=== PATIENT | female | born 1955 | race Caucasian/White ===

== ENCOUNTER 2016-07-23 10:31 | Emergency (ER) | payer SELFPAY ==
[2016-07-23 10:31] VITALS: BMI 31.2
[2016-07-23 11:12] VITALS: BP 123/69; PULSE 62; RESP 18; TEMP 99.3; O2SAT 98
--- NOTE | 2016-07-23 11:46 | ED PDOC ---
Arrival/HPI - General Chief Complaint: Flu-like Symptoms Time Seen by Provider: 07/23/16 11:37 Historian: Patient - History of Present Illness Narrative History of Present Illness (Text): 07/23/16 11:42 Patient reports 2 days of fever with body aches, dry cough and sore throat. States that she has been taking Tylenol for her symptoms and took Tylenol prior to arrival at 10 AM. Otherwise: (-) rash, (-) URI symptoms, (-) SOB, (-) chest pain, (-) N/V/D, (-) abdominal pain, (-) flank pain, (-) urinary symptoms, (-) recent travel, (+) sick contacts - works at a daycare. PMD [place] Past Medical History - Provider Review Nursing Documentation Reviewed: Yes - Infectious Disease Hx of Infectious Diseases: None - Tetanus Immunization Tetanus Immunization: Unknown - Reproductive Menopause: Yes - Cardiac Hx Hypertension: Yes - Pulmonary Hx Respiratory Disorders: No - Neurological Hx Neurological Disorder: No - HEENT Hx HEENT Disorder: No - Renal Hx Renal Disorder: Yes - Endocrine/Metabolic Hx Endocrine Disorders: No - Hematological/Oncological Hx Blood Disorders: No - Integumentary Hx Dermatological Disorder: No - Musculoskeletal/Rheumatological Hx Musculoskeletal Disorders: No - Gastrointestinal Hx Gastrointestinal Disorders: No - Genitourinary/Gynecological Hx Genitourinary Disorders: Yes Hx Urinary Tract Infection: Yes - Psychiatric Hx Depression: No Hx Substance Use: No - Surgical History Hx Section: Yes Hx Orthopedic Surgery: Yes (L KNEE) - Anesthesia Hx Anesthesia: Yes Hx Anesthesia Reactions: No Hx Malignant Hyperthermia: No - Suicidal Assessment Feels Threatened In Home Enviroment: No Family/Social History - Physician Review Nursing Documentation Reviewed: Yes Family/Social History: No Known Family HX Smoking Status: Current Some Days Smoker Hx Alcohol Use: Yes Hx Substance Use: No Hx Substance Use Treatment: No Allergies/Home Meds Allergies/Adverse Reactions: Allergies acetaminophen [From Percocet] Allergy (Verified 01/21/16 13:05) REDNESS morphine Allergy (Verified 01/21/16 13:05) RASH oxycodone HCl [From Percocet] Allergy (Verified 01/21/16 13:05) REDNESS oxycodone Adverse Reaction (Verified 01/18/16 20:17) NAUSEA Review of Systems - Review of Systems Constitutional: Normal, Fatigue, Fevers. absent: Weight Change Eyes: Normal. absent: Vision Changes, Photophobia, Eye Pain ENT: Normal, Sore Throat. absent: Hearing Changes, Tinnitus, TMJ Pain Respiratory: Normal, Cough. absent: SOB, Sputum Musculoskeletal: Normal, Myalgias. absent: Back Pain, Neck Pain Skin: Normal. absent: Rash, Pruritis, Skin Lesions Physical Exam - Physical Exam Narrative Physical Exam (Text): 07/23/16 11:44 GENERAL APPEARANCE: Patient is awake, alert, oriented x 3, in no acute distress. SKIN: Warm, dry; (-) cyanosis, (-) rash. (-) Decubitus Ulcer EYES: (-) conjunctival pallor, (-) scleral icterus, (-) conjunctival hemorrhage. ENMT: Mucous membranes moist. TMs: (-) erythema. Airway patent: (-) stridor. Pharynx: (+) erythema, (+) exudate. NECK: (-) tenderness, (-) stiffness, (-) meningismus, (-) lymphadenopathy. CHEST AND RESPIRATORY: (-) accessory muscle use. Lungs: (-) rales, (-) rhonchi, (-) wheezes, (-) rub; breath sounds equal bilaterally. HEART AND CARDIOVASCULAR: (-) irregularity; (-) murmur, (-) gallop, (-) rub. ABDOMEN AND GI: Soft; (-) tenderness, (-) guarding; (-) organomegaly; (-) mass ; (-) CVA tenderness. EXTREMITIES: (-) deformity; (-) cellulitis, (-) lymphangitis; (-) subungual hemorrhage; (-) edema. NEURO AND PSYCH: Mental status as above; (-) focal findings. Vital Signs Temp Pulse Resp BP Pulse Ox 07/23/16 11:08 99.3 F 62 18 123/69 98 Medical Decision Making ED Course and Treatment: 07/23/16 11:44 61 yo F complaining of 2 day history of fever, body aches and sore throat. On exam, patient is noted to have pharyngitis, will treat as such. Based on history and exam, plan will be for outpatient follow-up with PMD. Prescription provided. Patient states she fully agrees with and understands discharge instructions. States that she agrees with the plan and disposition. Verbalized and repeated discharge instructions and plan. I have given the patient opportunity to ask any additional questions. Follow up with primary care physician in 1-2 days without fail. Advised to take medication as prescribed. Return to the emergency room at any time for any new or worsening symptoms. - PA / WOODWORK TEACHER / Resident Statement MD/DO has reviewed & agrees with the documentation as recorded. Disposition/Present on Arrival - Present on Arrival Any Indicators Present on Arrival: No History of DVT/PE: No History of Uncontrolled Diabetes: No Urinary Catheter: No History of Decub. Ulcer: No History Surgical Site Infection Following: None - Disposition Have Diagnosis and Disposition been Completed?: Yes Diagnosis: Pharyngitis Disposition: HOME/ ROUTINE Disposition Time: 11:46 Patient Plan: Discharge Condition: GOOD Discharge Instructions (ExitCare): Pharyngitis (ED) Print Language: MALAYSIAN Additional Instructions: Thank you for letting us take care of you today. You were treated for pharyngitis. The emergency medical care you received today was directed at your acute symptoms. If you were prescribed any medication, please fill it and take as directed. It may take several days for your symptoms to resolve. Return to the Emergency Department if your symptoms worsen, do not improve, or if you have any other problems. Please contact your doctor in 2 days for re-evaluation and follow up. Bring any paperwork you were given at discharge with you along with any medications you are taking to your follow up visit. Our treatment cannot replace ongoing medical care by a primary care provider (PCP) outside of the emergency department. Thank you for allowing the [facility] team to be part of your care today. Prescriptions: Ibuprofen [Motrin] 600 mg PO Q6H #20 tab Penicillin VK [Pen-Vee K] 500 mg PO QID #20 tab Forms: WORK NOTE
== END 2016-07-23 12:09 | disposition home or self-care (01) ==
LOC: ED 10:31
DX: J02.9 Acute pharyngitis, unspecified (principal); Z72.0 Tobacco use

== ENCOUNTER 2017-01-18 10:52 | Emergency (ER) | payer MEDICAID, OTHER ==
[2017-01-18 10:52] VITALS: BMI 31.2
[2017-01-18 11:01] VITALS: TEMP 98.5
[2017-01-18 11:16] LABS: URINE BILIRUBIN NEGATIVE (NEGATIVE); URINE BLOOD TRACE-INTACT (NEGATIVE); URINE GLUCOSE (UA) NEGATIVE (NEGATIVE); URINE KETONE NEGATIVE (NEGATIVE); URINE LEUKOCYTE ESTERASE SMALL Leu/uL (NEGATIVE); URINE PROTEIN NEGATIVE mg/dL (<30 mg/dL); URINE UROBILINOGEN 0.2 E.U./dL (<1 E.U./dL)
[2017-01-18 11:18] LABS: URINE APPEARANCE CLEAR (CLEAR); URINE COLOR LIGHT YELLOW (YELLOW)
--- NOTE | 2017-01-18 11:22 | ED PDOC ---
Arrival/HPI - General Chief Complaint: Female Genitourinary Time Seen by Provider: 01/18/17 10:58 Historian: Patient - History of Present Illness Narrative History of Present Illness (Text): 01/18/17 11:14 A 61 year old female presents to the emergency department complaining of right sided back pain since yesterday. Patient states her pain worsened this morning causing her to come in for further evaluation. Patient took 2 Advils today, with mild relief. Patient reports she is prone to urinary tract infections. She notes foul smelling urine and 2 episodes of non-bloody watery diarrhea yesterday. Patient notes subjective fever, chills, runny nose and cough with phlegm for 2 days. Patient denies any trauma, injury, nausea, vomiting, abdominal pain, chest pain, shortness of breath or any other complaints. Denies history of kidney stones. PMD: None Time/Duration: Other (Yesterday) Symptom Course: Worsening Quality: Other Context: Home Past Medical History - Provider Review Nursing Documentation Reviewed: Yes - Infectious Disease Hx of Infectious Diseases: None - Tetanus Immunization Tetanus Immunization: Unknown - Cardiac Hx Hypertension: Yes - Pulmonary Hx Respiratory Disorders: No - Neurological Hx Neurological Disorder: No - HEENT Hx Macular Degeneration: Yes - Renal Hx Renal Disorder: Yes - Endocrine/Metabolic Hx Endocrine Disorders: No - Hematological/Oncological Hx Blood Disorders: No - Integumentary Hx Dermatological Disorder: No - Musculoskeletal/Rheumatological Hx Musculoskeletal Disorders: No - Gastrointestinal Hx Gastrointestinal Disorders: No - Genitourinary/Gynecological Hx Genitourinary Disorders: Yes Hx Urinary Tract Infection: Yes - Psychiatric Hx Psychophysiologic Disorder: No Hx Substance Use: No - Surgical History Hx Section: Yes Hx Orthopedic Surgery: Yes (L KNEE) - Anesthesia Hx Anesthesia: Yes Hx Anesthesia Reactions: No Hx Malignant Hyperthermia: No - Suicidal Assessment Feels Threatened In Home Enviroment: No Family/Social History - Physician Review Nursing Documentation Reviewed: Yes Family/Social History: Other (Kidney stones) Smoking Status: Current Some Days Smoker Hx Alcohol Use: Yes Hx Substance Use: No Hx Substance Use Treatment: No Allergies/Home Meds Allergies/Adverse Reactions: Allergies acetaminophen [From Percocet] Allergy (Verified 01/18/17 10:55) REDNESS morphine Allergy (Verified 01/18/17 10:55) RASH oxycodone HCl [From Percocet] Allergy (Verified 01/18/17 10:55) REDNESS oxycodone Adverse Reaction (Verified 01/18/17 10:55) NAUSEA Review of Systems - Physician Review All systems were reviewed & negative as marked: Yes - Review of Systems Constitutional: Fevers, Night Sweats ENT: Rhinorrhea Respiratory: Cough, Sputum. absent: SOB Cardiovascular: absent: Chest Pain Gastrointestinal: Diarrhea. absent: Abdominal Pain, Nausea, Vomiting Genitourinary Female: Other (foul smelling urine) Musculoskeletal: Back Pain (right sided) Physical Exam Vital Signs Reviewed: Yes Vital Signs Temp Pulse Resp BP Pulse Ox 01/18/17 11:48 50 L 18 151/66 H 01/18/17 10:56 98.5 F 48 L 16 170/88 H 98 Temperature: Afebrile Blood Pressure: Hypertensive Pulse: Bradycardic Respiratory Rate: Normal Appearance: Positive for: Well-Appearing, Non-Toxic, Comfortable Pain Distress: None Mental Status: Positive for: Alert and Oriented X 3 - Systems Exam Head: Present: Atraumatic, Normocephalic Pupils: Present: PERRL Extroacular Muscles: Present: EOMI Conjunctiva: Present: Normal Mouth: Present: Moist Mucous Membranes Pharnyx: No: ERYTHEMA, EXUDATE, TONSILS ENLARGED Neck: Present: Normal Range of Motion Respiratory/Chest: Present: Clear to Auscultation, Good Air Exchange. No: Respiratory Distress, Accessory Muscle Use Cardiovascular: Present: Murmurs (4-6 right upper sternal border systolic murmur ), Normal S1, S2 Abdomen: Present: Normal Bowel Sounds. No: Tenderness, Distention, Peritoneal Signs Back: Present: CVA Tenderness (Mild right CVA tenderness), Other (Tenderness to right sciatic area). No: Pain with Leg Raise Upper Extremity: Present: Normal Inspection, NORMAL PULSES. No: Cyanosis, Edema Lower Extremity: Present: Normal Inspection, NORMAL PULSES, Other (right posterior thigh pain). No: Edema, CALF TENDERNESS Neurological: Present: GCS=15, Speech Normal, Motor Func Grossly Intact, Normal Sensory Function Skin: Present: Warm, Dry, Normal Color. No: Rashes Psychiatric: Present: Alert, Oriented x 3, Normal Insight, Normal Concentration Medical Decision Making ED Course and Treatment: 01/18/17 11:14 Impression: A 61 year old female with right sided back pain. Patient notes foul smelling urine. Plan: -- Urine culture -- Urinalysis -- Reassess and disposition Progress Notes: 01/18/17 12:05 given her symptoms of dysuira we will treat for an early UTI, with Cefpodoxime. Do not believe this repr she shows no signs of doubt kidney stone her pain seems more likely musculoskeletal. and I advised her to followup with a operations manager station for her murmur and at the [facility] for BP control. an EKG was obtained due to the patient's bradycardia to check for sinus arrthymia or heart block. EKG shows a sinus bradycardia, she is asymptomatic at this time. I advised her to followup with cardiology for the low heart rate. no smoking. 01/18/17 12:43 01/18/17 12:53 - Lab Interpretations Lab Results: Lab Results 01/18/17 11:00: Urine Color Light yellow, Urine Appearance Clear, Urine pH 6.0, Ur Specific [place] 1.025, Urine Protein Negative, Urine Glucose (UA) Negative, Urine Ketones Negative, Urine Blood Trace-intact H, Urine Nitrate Negative, Urine Bilirubin Negative, Urine Urobilinogen 0.2, Ur Leukocyte Esterase Small H , Urine RBC 1 - 3, Urine WBC 1 - 3, Ur Epithelial Cells 1 - 3, Urine Bacteria Few I have reviewed the lab results: Yes Interpretation: Abnormal lab values (mild leuks/bacteria in UA) - EKG Interpretation Interpreted by ED Physician: Yes Type: 12 lead EKG (sinus bradycardia 46 bpm, nml axis, no st changes. nml QTc, QRS and MO intervals.) - Medication Orders Current Medication Orders: Cefpodoxime Proxetil (Vantin) 100 mg PO DAILY [facility] PRN Reason: Protocol Discontinued Medications Cefpodoxime Proxetil (Vantin) 100 mg PO DAILY [facility] PRN Reason: Protocol - Scribe Statement The provider has reviewed the documentation as recorded by the Leo Gomez Provider Scribe Attestation: All medical record entries made by the Scribe were at my direction and personally dictated by me. I have reviewed the chart and agree that the record accurately reflects my personal performance of the history, physical exam, medical decision making, and the department course for this patient. I have also personally directed, reviewed, and agree with the discharge instructions and disposition. Disposition/Present on Arrival - Present on Arrival Any Indicators Present on Arrival: No History of DVT/PE: No History of Uncontrolled Diabetes: No Urinary Catheter: No History of Decub. Ulcer: No History Surgical Site Infection Following: None - Disposition Have Diagnosis and Disposition been Completed?: Yes Diagnosis: Sciatica, Flank pain, UTI (urinary tract infection), High blood pressure, Heart murmur, Bradycardia Disposition: HOME/ ROUTINE Disposition Time: 12:08 Patient Plan: Discharge Patient Problems: Current Active Problems Problem Status Onset Bradycardia Acute Flank pain Acute Heart murmur Acute Hypertension Acute Sciatica Acute UTI (urinary tract infection) Acute Condition: IMPROVED Discharge Instructions (ExitCare): Urinary Tract Infection in Women (ED), Sciatica (ED), Heart Murmur (ED) Print Language: FAROESE Additional Instructions: please follow up with the operations manager station regarding your heart murmur you may have a problem with your heart valve. (Aortic stenosis). heart rate was low today. Your blood pressure was elevated today. please followup with a primary doctor regarding your blood pressure control. Prescriptions: Cefpodoxime [Vantin] 100 mg PO BID #10 tab Referrals: [facility] at [facility] [place] [Outside] - Follow up with primary Laura Solo MD [Staff Provider] - Follow up with primary Forms: [employer] (Faroese)
[2017-01-18 11:34] LABS: URINE BACTERIA FEW (NEG)
[2017-01-18 11:49] VITALS: RESP 18
[2017-01-18] MEDS ORDERED: Cefpodoxime (Vantin) 100 mg Tab PO SCH (12:30)
[2017-01-18 12:57] VITALS: BP 179/74; PULSE 42; O2SAT 100
--- NOTE | 2017-01-19 00:50 | CARD ---
APPROVED REPORT EKG Measurement Heart [id number] <Conclusion> Marked sinus bradycardia Abnormal ECG
[2017-01-19] MEDS ORDERED: Cefpodoxime (Vantin) 100 mg Tab PO SCH (10:00)
== END 2017-01-18 13:22 | disposition home or self-care (01) ==
LOC: ED 10:52
DX: M54.30 Sciatica, unspecified side (principal); R10.9 Unspecified abdominal pain; I10 Essential (primary) hypertension; N39.0 Urinary tract infection, site not specified; R01.1 Cardiac murmur, unspecified; R00.1 Bradycardia, unspecified

== ENCOUNTER 2017-02-28 09:04 | Emergency (ER) | payer MEDICAID ==
[2017-02-28 09:15] VITALS: BMI 29.6
[2017-02-28 09:38] VITALS: PULSE 78; RESP 18; TEMP 98.5; O2SAT 100
[2017-02-28 09:49] LABS: URINE BILIRUBIN NEGATIVE (NEGATIVE); URINE BLOOD TRACE-INTACT (NEGATIVE); URINE GLUCOSE (UA) NEGATIVE (NEGATIVE); URINE KETONE NEGATIVE (NEGATIVE); URINE LEUKOCYTE ESTERASE NEGATIVE Leu/uL (NEGATIVE); URINE PROTEIN NEGATIVE mg/dL (<30 mg/dL); URINE UROBILINOGEN 0.2 E.U./dL (<1 E.U./dL)
[2017-02-28 09:50] LABS: URINE APPEARANCE CLEAR (CLEAR); URINE COLOR YELLOW (YELLOW)
[2017-02-28 10:04] LABS: BASO # 0.03 K/mm3 (0.0-2.0); BASO % 0.4 % (0.0-3.0); EOS # 0.1 (0.0-0.7); EOS % 1.9 % (1.5-5.0); GRAN # 4.53 (1.4-6.5); GRAN % 62.8 % (50.0-68.0); HEMATOCRIT 40.8 % (36.0-48.0); LYMPH # 1.9 (1.2-3.4); LYMPH % 25.7 % (22.0-35.0); MEAN CELL VOLUME 94.7 fl (80.0-105.0); MEAN CORPUSCULAR HEMOGLOBIN 30.9 pg (25.0-35.0); MEAN CORPUSCULAR HGB CONC 32.6 g/dl (31.0-37.0); MEAN PLATELET VOLUME 10.6 fl (7.0-11.0); MONO # 0.7 (0.1-0.6); MONO % 9.2 % (1.0-6.0); RED CELL DISTRIBUTION WIDTH 12.5 % (11.5-14.5); WHITE BLOOD COUNT 7.2 10^3/ul (4.5-11.0)
[2017-02-28 10:10] LABS: URINE BACTERIA FEW (NEG); URINE RBC 0 - 2 /hpf (0-2); URINE WBC 0 - 2 /hpf (0-6)
[2017-02-28 10:11] LABS: ALKALINE PHOSPHATASE 73 U/L (38-126); ALT/SGPT 26 U/L (7-56); AST/SGOT 24 U/L (14-36); BILIRUBIN,TOTAL 0.7 mg/dL (0.2-1.3); BLOOD UREA NITROGEN 13 mg/dL (7-21); CALCIUM 9.7 mg/dL (8.4-10.5); CARBON DIOXIDE 28 mmol/L (21-33); CHLORIDE 104 mmol/L (98-107); GFR AFRICAN-AMERICAN > 60; GLUCOSE,RANDOM 146 mg/dL (70-110); LIPASE 119 U/L (23-300); POTASSIUM 4.3 mmol/L (3.6-5.0); SODIUM 141 mmol/L (132-148); TOTAL PROTEIN 8.9 g/dL (5.8-8.3)
--- NOTE | 2017-02-28 10:17 | ED PDOC ---
Arrival/HPI - General Chief Complaint: Back Pain Time Seen by Provider: 02/28/17 09:37 Historian: Patient - History of Present Illness Narrative History of Present Illness (Text): 02/28/17 10:13 61-year-old female presents today with a one-day history of urinary frequency and dysuria and right-sided back pain. Patient states she has worsening sharp stabbing pain in the right lower back that is nonradiating. She denies abdominal pain. Denies fevers or chills. Denies nausea or vomiting. Denies chest pain or shortness of breath. Patient states she has taken Tylenol at home without improvement in her symptoms. Patient states pain is 8 out of 10. No other complaints Time/Duration: Other (1 day) Symptom Onset: Gradual Symptom Course: Worsening Quality: Stabbing Severity Level: 8 Past Medical History - Provider Review Nursing Documentation Reviewed: Yes - Travel History Have you recently traveled outside [place] w/in the past 3 mons?: No - Infectious Disease Hx of Infectious Diseases: None - Tetanus Immunization Tetanus Immunization: Unknown - Cardiac Hx Hypertension: Yes - Pulmonary Hx Respiratory Disorders: No - Neurological Hx Neurological Disorder: No - HEENT Hx Macular Degeneration: Yes - Renal Hx Renal Disorder: Yes - Endocrine/Metabolic Hx Endocrine Disorders: No - Hematological/Oncological Hx Blood Disorders: No - Integumentary Hx Dermatological Disorder: No - Musculoskeletal/Rheumatological Hx Musculoskeletal Disorders: No - Gastrointestinal Hx Gastrointestinal Disorders: No - Genitourinary/Gynecological Hx Genitourinary Disorders: Yes Hx Urinary Tract Infection: Yes - Psychiatric Hx Psychophysiologic Disorder: No Hx Substance Use: No - Surgical History Hx Section: Yes Hx Orthopedic Surgery: Yes (L KNEE) - Anesthesia Hx Anesthesia: Yes Hx Anesthesia Reactions: No Hx Malignant Hyperthermia: No - Suicidal Assessment Feels Threatened In Home Enviroment: No Family/Social History - Physician Review Nursing Documentation Reviewed: Yes Family/Social History: Unknown Family HX Smoking Status: Current Some Days Smoker Hx Alcohol Use: Yes Hx Substance Use: No Hx Substance Use Treatment: No Allergies/Home Meds Allergies/Adverse Reactions: Allergies acetaminophen [From Percocet] Allergy (Verified 02/14/17 11:38) REDNESS morphine Allergy (Verified 02/14/17 11:38) RASH oxycodone HCl [From Percocet] Allergy (Verified 02/14/17 11:38) REDNESS oxycodone Adverse Reaction (Verified 01/18/17 10:55) NAUSEA Review of Systems - Review of Systems Constitutional: absent: Fatigue, Fevers Respiratory: absent: SOB, Cough Cardiovascular: absent: Chest Pain, Palpitations Gastrointestinal: absent: Abdominal Pain, Constipation, Diarrhea, Nausea, Vomiting Genitourinary Female: Dysuria, Frequency. absent: Hematuria, Vaginal Bleeding, Vaginal Discharge Musculoskeletal: Back Pain. absent: Arthralgias, Neck Pain Skin: absent: Rash, Pruritis Neurological: absent: Headache, Dizziness Physical Exam Vital Signs Reviewed: Yes Vital Signs Temp Pulse Resp BP Pulse Ox 02/28/17 12:29 78 18 176/75 H 100 02/28/17 09:17 98.5 F 78 18 180/78 H 100 Temperature: Afebrile Blood Pressure: Hypertensive Pulse: Regular Respiratory Rate: Normal Appearance: Positive for: Well-Appearing, Non-Toxic, Comfortable Pain Distress: None Mental Status: Positive for: Alert and Oriented X 3 - Systems Exam Head: Present: Atraumatic Mouth: Present: Moist Mucous Membranes Neck: Present: Normal Range of Motion Respiratory/Chest: Present: Clear to Auscultation Cardiovascular: Present: Regular Rate and Rhythm Abdomen: Present: Normal Bowel Sounds. No: Tenderness, Distention, Peritoneal Signs, Rebound, Guarding Back: Present: Normal Inspection. No: CVA Tenderness, Midline Tenderness, Paraspinal Tenderness Upper Extremity: Present: Normal ROM Lower Extremity: Present: Normal ROM Neurological: Present: GCS=15, Speech Normal Skin: Present: Warm, Dry, Normal Color. No: Rashes Psychiatric: Present: Alert, Oriented x 3 Medical Decision Making ED Course and Treatment: 02/28/17 10:25 Patient is nontoxic well appearing with stable vital signs presenting with right sided back pain. CBC: wnl CMP:glucose 146 Lipase: wnl Urinalysis + blood, no leukocytes, few bacteria CAT scan: FINDINGS: LOWER THORAX: There is subsegmental atelectasis in the lower lobes. LIVER: Normal in size. No gross lesion or ductal dilatation. 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 GALLBLADDER AND BILE DUCTS: No calcified gallstones. PANCREAS: Normal in size. No gross lesion or ductal dilatation. SPLEEN: Normal in size and appearance. ADRENALS: No discrete nodule. KIDNEYS AND URETERS: Normal in size without nephrolithiasis. No hydronephrosis. No solid mass. VASCULATURE: No aortic aneurysm. BOWEL: The small bowel loops are normal in caliber. There is mild colonic diverticulosis without CT evidence for acute diverticulitis. No bowel dilatation or obstruction. APPENDIX: Normal appendix. PERITONEUM: No free fluid. No free air. LYMPH NODES: No enlarged lymph nodes. BLADDER: The urinary bladder is partially decompressed and there is apparent mild mural thickening wall. REPRODUCTIVE: The uterus is normal in size. BONES: No acute fracture. Multilevel degenerative disc disease. OTHER FINDINGS: None. IMPRESSION: No evidence of nephrolithiasis, hydronephrosis or obstructive uropathy. Apparent mild mural thickening of the urinary bladder wall could be related to underdistention however cystitis cannot be excluded. Please correlate with urine analysis. Colonic diverticulosis without CT evidence for acute diverticulitis. Patient reassessment: pt feeling better after medications. will treat patient for UTI with keflex. Discussed all results with patient in depth advised taking antibiotics as prescribed and advised follow-up with the primary care physician. Advised me to return if symptoms worsen persist or if new concerning symptoms develop. pt with elevated blood sugar; advised patient to f/u with PMD for fasting blood sugar/ evaluation of possible DM. Patient verbalizes understanding of discharge instructions and need for immediate followup. all aspects of this case were discussed the attending of record. Impression: back pain, UTI Motrin every 6 hours as needed for pain Keflex 1 capsule 4 Times Daily 7 Days Follow-Up the Primary Care Physician within the Next 2 Days Increase Fluids Return Immediately If Symptoms Worsen Persist or If New concerning Symptoms Develop: High Fevers, Increasing Pain, nausea, vomiting, diarrhea severe abdominal pain or if any other concerning symptoms develop - Lab Interpretations Lab Results: 02/28/17 09:58 02/28/17 09:58 Lab Results 02/28/17 09:58: WBC 7.2 D, RBC 4.31, Hgb 13.3, Hct 40.8, MCV 94.7, MCH 30.9, MCHC 32.6, RDW 12.5, Plt Count 234, MPV 10.6, Gran % 62.8, Lymph % (Auto) 25.7, [place] % (Auto) 9.2 H, Eos % (Auto) 1.9, Baso % (Auto) 0.4, Gran # 4.53, Lymph # 1.9, [place] # 0.7 H, Eos # 0.1, Baso # 0.03 02/28/17 09:58: Sodium 141, Potassium 4.3, Chloride 104, Carbon Dioxide 28, Anion Gap 13, BUN 13, Creatinine 0.5 L, Est GFR ( Amer) > 60, Est GFR ( Non-Af Amer) > 60, Random Glucose 146 H, Calcium 9.7, Total Bilirubin 0.7, AST 24, ALT 26, Alkaline Phosphatase 73, Total Protein 8.9 H, Albumin 4.4, Globulin 4.4, Albumin/Globulin Ratio 1.0 L, Lipase 119 02/28/17 09:45: Urine Color Yellow, Urine Appearance Clear, Urine pH 6.0, Ur Specific [place] 1.025, Urine Protein Negative, Urine Glucose (UA) Negative, Urine Ketones Negative, Urine Blood Trace-intact H, Urine Nitrate Negative, Urine Bilirubin Negative, Urine Urobilinogen 0.2, Ur Leukocyte Esterase Negative , Urine RBC 0 - 2, Urine WBC 0 - 2, Ur Epithelial Cells 1 - 3, Urine Bacteria Few - RAD Interpretation Radiology Orders: 02/28/17 09:51 ABD & PELVIS W/O PO OR IV CONT [CT] Stat - Medication Orders Current Medication Orders: Discontinued Medications Cephalexin Monohydrate (Keflex) 500 mg PO STAT STA PRN Reason: Protocol Stop: 02/28/17 13:08 Ketorolac Tromethamine (Toradol) 30 mg IVP STAT STA Stop: 02/28/17 09:38 Last Admin: 02/28/17 09:55 Dose: 30 mg MAR Pain Assessment Document 02/28/17 09:55 [place] (Rec: 02/28/17 09:57 [place] [id number]) Pain Reassessment Is this a pain reassessment? No Sleep Is patient sleeping during reassessment? No Presence of Pain Presence of Pain Yes Pain Scale Used Pain Scale Used Numeric Location Left, Right or Bilateral Right Upper or Lower Lower Pain Location Body Site Back IVP Administration Document 02/28/17 09:55 MO (Rec: 02/28/17 09:57 [id number] Charges for Administration # of IVP Administrations 1 Disposition/Present on Arrival - Present on Arrival Any Indicators Present on Arrival: No History of DVT/PE: No History of Uncontrolled Diabetes: No Urinary Catheter: No History of Decub. Ulcer: No History Surgical Site Infection Following: None - Disposition Have Diagnosis and Disposition been Completed?: Yes Diagnosis: Back pain, Urinary tract infection Disposition: HOME/ ROUTINE Disposition Time: 13:08 Patient Plan: Discharge Patient Problems: Current Active Problems Problem Status Onset Back pain Acute Urinary tract infection Acute Condition: GOOD Discharge Instructions (ExitCare): Urinary Tract Infection in Women (ED), Dysuria (ED), Back Pain (ED) Additional Instructions: Motrin every 6 hours as needed for pain Keflex 1 capsule 4 Times Daily 7 Days Follow-Up the Primary Care Physician within the Next 2 Days Increase Fluids Return Immediately If Symptoms Worsen Persist or If New concerning Symptoms Develop: High Fevers, Increasing Pain, nausea, vomiting, diarrhea severe abdominal pain or if any other concerning symptoms develop Prescriptions: Cephalexin [Keflex] 500 mg PO QID #28 capsule Ibuprofen [Motrin] 600 mg PO Q6H PRN #20 tab PRN Reason: pain/fever reduction Referrals: Luke Cantu MD [Staff Provider] - Follow up with primary [facility] [place]] - Follow up with primary Forms: [employer] (Lao)
--- NOTE | 2017-02-28 11:36 | CT ---
PROCEDURE: CT Abdomen and Pelvis without intravenous contrast HISTORY: Right flank pain COMPARISON: 01/18/2016. TECHNIQUE: CT scan of the abdomen and pelvis was performed without administration of intravenous contrast. Oral contrast was not administered. Coronal and sagittal reformatted images were obtained. Radiation dose: Total exam DLP = 679.30 mGy-cm. This CT exam was performed using one or more of the following dose reduction techniques: Automated exposure control, adjustment of the mA and/or kV according to patient size, and/or use of iterative reconstruction technique. FINDINGS: LOWER THORAX: There is subsegmental atelectasis in the lower lobes. LIVER: Normal in size. No gross lesion or ductal dilatation. 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 GALLBLADDER AND BILE DUCTS: No calcified gallstones. PANCREAS: Normal in size. No gross lesion or ductal dilatation. SPLEEN: Normal in size and appearance. ADRENALS: No discrete nodule. KIDNEYS AND URETERS: Normal in size without nephrolithiasis. No hydronephrosis. No solid mass. VASCULATURE: No aortic aneurysm. BOWEL: The small bowel loops are normal in caliber. There is mild colonic diverticulosis without CT evidence for acute diverticulitis. No bowel dilatation or obstruction. APPENDIX: Normal appendix. PERITONEUM: No free fluid. No free air. LYMPH NODES: No enlarged lymph nodes. BLADDER: The urinary bladder is partially decompressed and there is apparent mild mural thickening wall. REPRODUCTIVE: The uterus is normal in size. BONES: No acute fracture. Multilevel degenerative disc disease. OTHER FINDINGS: None. IMPRESSION: No evidence of nephrolithiasis, hydronephrosis or obstructive uropathy. Apparent mild mural thickening of the urinary bladder wall could be related to underdistention however cystitis cannot be excluded. Please correlate with urine analysis. Colonic diverticulosis without CT evidence for acute diverticulitis.
[2017-02-28 12:29] VITALS: BP 176/75
== END 2017-02-28 13:25 | disposition home or self-care (01) ==
LOC: ED 09:04
DX: N39.0 Urinary tract infection, site not specified (principal); M54.5 Low back pain; F17.200 Nicotine dependence, unspecified, uncomplicated; I10 Essential (primary) hypertension
CPT/HCPCS: 74176; 80053; 81001; 83690; 85025; 96374; 99283; J1885

== ENCOUNTER 2017-03-28 19:09 | Emergency (ER) | payer MEDICAID ==
[2017-03-28 19:11] VITALS: BMI 29.6
[2017-03-28] MEDS ORDERED: Sodium Chloride 0.9% 1,000 ML IV STA (20:02)
--- NOTE | 2017-03-28 20:21 | ED PDOC ---
Arrival/HPI - General Historian: Patient - History of Present Illness Time/Duration: < week Symptom Onset: Gradual Symptom Course: Worsening Activities at Onset: Rest, Light Context: Home, Work - General Chief Complaint: Flu-like Symptoms Time Seen by Provider: 03/28/17 19:43 - History of Present Illness Narrative History of Present Illness (Text): 03/28/17 20:10 Mrs. Izaguirre is a 61 year old female with a past medical history significant for hypertension who presents to the [facility] emergency department with a chief complaint of flu-like symptoms of 3 days duration. Patient reports that she has had tactile fever, watery eyes, rhinorrhea, dry cough, nausea, one episode of non-bloody, vomiting, loose stools and body aches since she awoke 3 days ago. She endorses that she has tried OTC aleve and tylenol with minimal relief of her symptoms. 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 She also reports that she did not obtain her flu shot this year. She denies chills, headache, changes in her vision, sinus congestion, neck pain/stiffness, chest pain, palpitations, shortness of breath, wheezing, sputum, constipation, burning/pain with urination, rashes or any numbness/tingling/weakness of any extremity. (Randy Patel) Past Medical History - Provider Review Nursing Documentation Reviewed: Yes - Travel History Have you recently traveled outside [place] w/in the past 3 mons?: No - Past History Past History: No Previous - Infectious Disease Hx of Infectious Diseases: None - Tetanus Immunization Tetanus Immunization: Unknown - Reproductive Currently : No - Cardiac Hx Hypertension: Yes - Pulmonary Hx Respiratory Disorders: No - Neurological Hx Neurological Disorder: No - HEENT Hx Macular Degeneration: Yes - Renal Hx Renal Disorder: Yes - Endocrine/Metabolic Hx Endocrine Disorders: No - Hematological/Oncological Hx Blood Disorders: No - Integumentary Hx Dermatological Disorder: No - Musculoskeletal/Rheumatological Hx Musculoskeletal Disorders: No - Gastrointestinal Hx Gastrointestinal Disorders: No - Genitourinary/Gynecological Hx Genitourinary Disorders: Yes Hx Urinary Tract Infection: Yes - Psychiatric Hx Psychophysiologic Disorder: No Hx Substance Use: No - Surgical History Hx Section: Yes Hx Orthopedic Surgery: Yes (L KNEE) - Anesthesia Hx Anesthesia: Yes Hx Anesthesia Reactions: No Hx Malignant Hyperthermia: No - Suicidal Assessment Feels Threatened In Home Enviroment: No Family/Social History - Physician Review Nursing Documentation Reviewed: Yes Family/Social History: No Known Family HX Smoking Status: Current Some Days Smoker Hx Alcohol Use: Yes Hx Substance Use: No Hx Substance Use Treatment: No Allergies/Home Meds Allergies/Adverse Reactions: Allergies acetaminophen [From Percocet] Allergy (Verified 02/14/17 11:38) REDNESS morphine Allergy (Verified 02/14/17 11:38) RASH oxycodone HCl [From Percocet] Allergy (Verified 02/14/17 11:38) REDNESS oxycodone Adverse Reaction (Verified 01/18/17 10:55) NAUSEA Home Medications: Home Meds Medication Instructions Recorded Confirmed Enalapril Maleate [Vasotec] 5 mg PO DAILY 03/28/17 03/28/17 Review of Systems - Physician Review All systems were reviewed & negative as marked: Yes - Review of Systems Constitutional: Fevers. absent: Normal, Night Sweats Eyes: Normal. absent: Vision Changes ENT: Rhinorrhea. absent: Normal, Sore Throat, Sinus Congestion Respiratory: Cough. absent: Normal, SOB, Sputum, Wheezing Cardiovascular: Normal. absent: Palpitations Gastrointestinal: Abdominal Pain, Nausea. absent: Normal, Constipation, Diarrhea, Vomiting, Hematochezia, Hematemesis Genitourinary Female: Normal. absent: Dysuria Musculoskeletal: Normal. absent: Neck Pain Skin: Normal. absent: Rash Neurological: Normal. absent: Headache Endocrine: Normal Hemo/Lymphatic: Normal Psychiatric: Normal Physical Exam Vital Signs Reviewed: Yes Temperature: Afebrile Blood Pressure: Normal Pulse: Regular Respiratory Rate: Normal Appearance: Positive for: Well-Appearing, Non-Toxic, Comfortable Pain Distress: None Mental Status: Positive for: Alert and Oriented X 3 - Systems Exam Head: Present: Atraumatic, Normocephalic Pupils: Present: PERRL Extroacular Muscles: Present: EOMI Conjunctiva: Present: Normal Ears: Present: Normal, NORMAL TM, Normal Canal. No: Erythema, Fluid, TM Perf Mouth: Present: Moist Mucous Membranes Pharnyx: Present: Normal. No: ERYTHEMA, EXUDATE, TONSILS ENLARGED, Uvular Deviation, Muffled/Hoarse Voice Nose (External): Present: Atraumatic Nose (Internal): Present: Normal Inspection, No Active Bleeding. No: Edematous , Clear Mucous, Rhinorrhea Neck: Present: Normal Range of Motion, Trachea Midline. No: Meningeal Signs, MIDLINE TENDERNESS, Paraspinal Tenderness, JVD, Lymphadenopathy Respiratory/Chest: Present: Clear to Auscultation, Good Air Exchange. No: Respiratory Distress, Accessory Muscle Use, Wheezes, Decreased Breath Sounds, Rales, Retracting, Rhonchi, Tachypneic, Tender to Palpation Cardiovascular: Present: Regular Rate and Rhythm, Normal S1, S2. No: Murmurs, Peripheal Pulses Present, Tachycardic, Bradycardic Abdomen: Present: Tenderness (Minimal tenderness to deep palpation diffusely), Normal Bowel Sounds. No: Distention, Peritoneal Signs, Rebound, Guarding Back: Present: Normal Inspection. No: CVA Tenderness, Midline Tenderness, Paraspinal Tenderness Upper Extremity: Present: Normal Inspection, Normal ROM, NORMAL PULSES. No: Cyanosis, Edema Lower Extremity: Present: Normal Inspection, NORMAL PULSES, Normal ROM. No: Edema, CALF TENDERNESS Neurological: Present: GCS=15, CN II-XII Intact, Speech Normal Skin: Present: Warm, Dry, Normal Color. No: Rashes Lymphatic: No: Cervical Adenopathy Psychiatric: Present: Alert, Oriented x 3, Normal Insight, Normal Concentration Vital Signs Temp Pulse Resp BP Pulse Ox 03/28/17 21:11 98.6 F 60 15 148/76 100 03/28/17 19:35 98.6 F 98 H 18 142/78 99 Medical Decision Making - Lab Interpretations I have reviewed the lab results: Yes Interpretation: All labs normal - RAD Interpretation Vessel Specialist: ED Physician - EKG Interpretation Interpreted by ED Physician: Yes Type: 12 lead EKG ED Course and Treatment: 03/28/17 20:42 Seen and examined with the resident. Our history and physical exam reveals a woman who complains of a several day history of a cough congestion URI sneezing myalgias arthralgias feeling feverish with chills along with nausea and vomiting. She does not appear ill. Her abdomen is soft and nontender (Tolerico,Ubaldo) 03/28/17 20:25 Impression: 61 year old female with a past medical history significant for hypertension who presents to the [facility] emergency department with a chief complaint of flu-like symptoms of 3 days duration Plan: -CBC, CMP, Rapid Flu, Urinalysis -Chest X-Ray portable -1L NS bolus -Reassess and disposition Prior Visits: Patient seen and evaluated on multiple occasions for back pain 03/28/17 21:26 Patient reporting significant improvement of her presenting symptoms and abdominal discomfort. She reports that she is ready to go home but requests the medication provided to her for nausea. (Randy Patel) - Lab Interpretations Lab Results: 03/28/17 19:40 03/28/17 19:40 Lab Results 03/28/17 20:44: Urine Color yellow, Urine Appearance Clear, Urine pH 6.0, Ur Specific [place] 1.025, Urine Protein Negative, Urine Glucose (UA) Negative, Urine Ketones Trace H, Urine Blood Negative, Urine Nitrate Negative, Urine Bilirubin Negative, Urine Urobilinogen 0.2, Ur Leukocyte Esterase Negative 03/28/17 19:40: Sodium 138, Potassium 3.8, Chloride 104, Carbon Dioxide 24, Anion Gap 13, BUN 18, Creatinine 0.6 L, Est GFR ( Amer) > 60, Est GFR ( Non-Af Amer) > 60, Random Glucose 123 H, Calcium 9.2, Total Bilirubin 0.4, AST 30, ALT 25, Alkaline Phosphatase 73, Total Protein 8.5 H, Albumin 4.2, Globulin 4.2, Albumin/Globulin Ratio 1.0 L 03/28/17 19:40: WBC 7.0, RBC 3.96, Hgb 12.5, Hct 38.2, MCV 96.5, MCH 31.6, MCHC 32.7, RDW 12.9, Plt Count 241, MPV 11.6 H, Gran % 45.1 L, Lymph % (Auto) 42.5 H , [place] % (Auto) 9.8 H, Eos % (Auto) 2.3, Baso % (Auto) 0.3, Gran # 3.18, Lymph # 3.0, [place] # 0.7 H, Eos # 0.2, Baso # 0.02 03/28/17 19:40: Influenza Typ A,B (EIA) Negative for flu a/b - RAD Interpretation Radiology Orders: 03/28/17 20:04 CHEST PORTABLE [RAD] Stat - EKG Interpretation EKG Interpretation (Text): 03/28/17 20:31 Sinus bradycardia at 52 bpm (Randy Patel) - Medication Orders Current Medication Orders: Discontinued Medications Sodium Chloride (Sodium Chloride 0.9%) 1,000 mls @ 999 mls/hr IV .Q1H1M STA Stop: 03/28/17 21:02 Last Admin: 03/28/17 20:07 Dose: 999 mls/hr eMAR Start Stop Document 03/28/17 20:07 AB (Rec: 03/28/17 20:08 [id number] Intravenous Solution Start Date 03/28/17 Start Time 20:07 End Date 03/28/17 End time 21:07 Total Infusion Time 60 Ibuprofen (Motrin Tab) 600 mg PO STAT STA Stop: 03/28/17 20:07 Last Admin: 03/28/17 20:21 Dose: 600 mg MAR Pain/Vitals Document 03/28/17 20:21 AB (Rec: 03/28/17 20:22 [id number] Pain Reassessment Is This A Pain ReAssessment? Yes Sleep Is patient sleeping during reassessment? No Presence of Pain Presence of Pain Yes Pain Scale Used Pain Scale Used Numeric Location Upper or Lower Lower Pain Location Body Site Abdomen Description Constant Intensity 4 Scale Used Numeric Pain Behavior Guarding Alleviating Factors Medication Ondansetron HCl (Zofran Inj) 4 mg IVP STAT STA Stop: 03/28/17 20:07 Last Admin: 03/28/17 20:22 Dose: 4 mg IVP Administration Document 03/28/17 20:22 AB (Rec: 03/28/17 20:22 [id number] Charges for Administration # of IVP Administrations 1 Disposition/Present on Arrival - Present on Arrival Any Indicators Present on Arrival: No History of DVT/PE: No History of Uncontrolled Diabetes: No Urinary Catheter: No History of Decub. Ulcer: No History Surgical Site Infection Following: None - Disposition Have Diagnosis and Disposition been Completed?: Yes Disposition Time: 21:30 Patient Plan: Discharge - Disposition Diagnosis: Flu-like symptoms Disposition: HOME/ ROUTINE Patient Problems: Current Active Problems Problem Status Onset Flu-like symptoms Acute Condition: STABLE Discharge Instructions (ExitCare): Viral Syndrome (ED) Additional Instructions: Mrs. Izaguirre, thank you for letting us take care of you today. Your provider was Dr. Garcia. You were treated for flu-like symptoms. The emergency medical care you received today was directed at your acute symptoms. If you were prescribed any medication, please fill it and take as directed. It may take several days for your symptoms to resolve. Return to the Emergency Department if your symptoms worsen, do not improve, or if you have any other problems. Please contact your doctor or call one of the physicians/clinics you have been referred to that are listed on the Patient Visit Information form that is included in your discharge packet. Bring any paperwork you were given at discharge with you along with any medications you are taking to your follow up visit. Our treatment cannot replace ongoing medical care by a primary care provider (PCP) outside of the emergency department. PLEASE FOLLOW UP WITH YOUR PRIMARY CARE DOCTOR WITHIN ONE WEEK Thank you for allowing the [facility] team to be part of your care today. If you had an X-Ray or CT scan: A Radiologist will review the ED reading if any change in treatment is needed we will contact you. Prescriptions: DiphenhydrAMINE [Benadryl] 25 mg PO HS PRN #10 cap PRN Reason: Itching / Pruritus Ondansetron [Zofran Tab] 4 mg PO Q8H PRN #10 tab PRN Reason: Nausea/Vomiting Referrals: PCP,NO [Primary Care Provider] - Follow up with primary Forms: [employer] (Welsh), WORK NOTE
[2017-03-28 20:43] LABS: BASO # 0.02 K/mm3 (0.0-2.0); BASO % 0.3 % (0.0-3.0); EOS # 0.2 (0.0-0.7); EOS % 2.3 % (1.5-5.0); GRAN # 3.18 (1.4-6.5); GRAN % 45.1 % (50.0-68.0); HEMATOCRIT 38.2 % (36.0-48.0); LYMPH % 42.5 % (22.0-35.0); MEAN CELL VOLUME 96.5 fl (80.0-105.0); MEAN CORPUSCULAR HEMOGLOBIN 31.6 pg (25.0-35.0); MEAN CORPUSCULAR HGB CONC 32.7 g/dl (31.0-37.0); MEAN PLATELET VOLUME 11.6 fl (7.0-11.0); MONO # 0.7 (0.1-0.6); MONO % 9.8 % (1.0-6.0); RED CELL DISTRIBUTION WIDTH 12.9 % (11.5-14.5)
[2017-03-28 20:46] LABS: BILIRUBIN,TOTAL 0.4 mg/dL (0.2-1.3); CALCIUM 9.2 mg/dL (8.4-10.5); GFR AFRICAN-AMERICAN > 60; GLUCOSE,RANDOM 123 mg/dL (70-110)
[2017-03-28 20:47] LABS: ALKALINE PHOSPHATASE 73 U/L (38-126); ALT/SGPT 25 U/L (7-56); AST/SGOT 30 U/L (14-36); BLOOD UREA NITROGEN 18 mg/dL (7-21); CARBON DIOXIDE 24 mmol/L (21-33); CHLORIDE 104 mmol/L (98-107); POTASSIUM 3.8 mmol/L (3.6-5.0); SODIUM 138 mmol/L (132-148); TOTAL PROTEIN 8.5 g/dL (5.8-8.3)
[2017-03-28 21:11] LABS: URINE BILIRUBIN NEGATIVE (NEGATIVE); URINE BLOOD NEGATIVE (NEGATIVE); URINE GLUCOSE (UA) NEGATIVE (NEGATIVE); URINE KETONE TRACE mg/dL (NEGATIVE); URINE PROTEIN NEGATIVE mg/dL (<30 mg/dL); URINE UROBILINOGEN 0.2 E.U./dL (<1 E.U./dL)
[2017-03-28 21:14] LABS: URINE APPEARANCE CLEAR (CLEAR); URINE LEUKOCYTE ESTERASE NEGATIVE Leu/uL (NEGATIVE)
[2017-03-28 21:20] VITALS: BP 148/76; PULSE 60; RESP 15; TEMP 98.6; O2SAT 100
--- NOTE | 2017-03-29 08:50 | RAD ---
HISTORY: Cough COMPARISON: 12/03/2013. FINDINGS: LUNGS: The lungs are well inflated and clear. PLEURA: No significant pleural effusion identified, no pneumothorax apparent. CARDIOVASCULAR: Stable. OSSEOUS STRUCTURES: No significant abnormalities. VISUALIZED UPPER ABDOMEN: Normal. OTHER FINDINGS: None. IMPRESSION: No active pulmonary disease.
--- NOTE | 2017-03-29 17:47 | CARD ---
APPROVED REPORT EKG Measurement Heart [id number] <Conclusion> Sinus bradycardia Otherwise normal ECG
== END 2017-03-28 21:42 | disposition home or self-care (01) ==
LOC: ED 19:09
DX: J11.1 Influenza due to unidentified influenza virus with other respiratory manifestations (principal); I10 Essential (primary) hypertension
CPT/HCPCS: 71010; 80053; 81003; 85025; 87804; 93005; 96361; 96374; 99284; J2405; J7040

== ENCOUNTER 2017-05-23 08:01 | Emergency (ER) | payer MEDICAID, OTHER ==
[2017-05-23 08:01] VITALS: BMI 29.6
[2017-05-23 08:23] VITALS: TEMP 98.1; O2SAT 97
[2017-05-23] MEDS ORDERED: Sodium Chloride 0.9% 1,000 ML IV STA (08:40)
--- NOTE | 2017-05-23 08:48 | ED PDOC ---
Arrival/HPI - General Chief Complaint: Flu-like Symptoms Time Seen by Provider: 05/23/17 08:30 Historian: Patient - History of Present Illness Narrative History of Present Illness (Text): 05/23/17 08:35 Evie Izaguirre is a 62 year old female, whose past medical history include hypertension, who presents to the emergency department complaining of diarrhea for the past three days. Patient also states having vomiting, feeling fatigue, and abdominal pain. She has not taken any medication, but has increased her fluid intake. 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 Patient denies chest pain, shortness of breath, headache, fever, chills, cough, dysuria, hematuria, frequency, flank pain, recent travels, or other complaints. Time/Duration: < week Symptom Onset: Gradual Symptom Course: Unchanged Context: Home, Work Past Medical History - Provider Review Nursing Documentation Reviewed: Yes - Past History Past History: No Previous - Infectious Disease Hx of Infectious Diseases: None - Tetanus Immunization Tetanus Immunization: Unknown - Cardiac Hx Hypertension: Yes - Pulmonary Hx Respiratory Disorders: No - Neurological Hx Neurological Disorder: No - HEENT Hx Macular Degeneration: Yes - Renal Hx Renal Disorder: No - Endocrine/Metabolic Hx Endocrine Disorders: No - Hematological/Oncological Hx Blood Disorders: No - Integumentary Hx Dermatological Disorder: No - Musculoskeletal/Rheumatological Hx Musculoskeletal Disorders: No - Gastrointestinal Hx Gastrointestinal Disorders: No - Genitourinary/Gynecological Hx Genitourinary Disorders: Yes Hx Urinary Tract Infection: Yes - Psychiatric Hx Psychophysiologic Disorder: No Hx Substance Use: No - Surgical History Hx Section: Yes Hx Orthopedic Surgery: Yes (L KNEE) - Anesthesia Hx Anesthesia: Yes Hx Anesthesia Reactions: No Hx Malignant Hyperthermia: No - Suicidal Assessment Feels Threatened In Home Enviroment: No Family/Social History - Physician Review Nursing Documentation Reviewed: Yes Family/Social History: Unknown Family HX Smoking Status: Light Smoker < 10 Cigarettes Daily Hx Alcohol Use: Yes Frequency of alcohol use: Socially Hx Substance Use: No Hx Substance Use Treatment: No Allergies/Home Meds Allergies/Adverse Reactions: Allergies acetaminophen [From Percocet] Allergy (Verified 05/23/17 08:23) REDNESS morphine Allergy (Verified 05/23/17 08:23) RASH oxycodone HCl [From Percocet] Allergy (Verified 05/23/17 08:23) REDNESS oxycodone Adverse Reaction (Verified 05/23/17 08:23) NAUSEA Home Medications: Home Meds Medication Instructions Recorded Confirmed Unobtainable 05/23/17 05/23/17 Review of Systems - Physician Review All systems were reviewed & negative as marked: Yes - Review of Systems Constitutional: Fatigue. absent: Fevers Respiratory: absent: SOB Cardiovascular: absent: Chest Pain Gastrointestinal: Abdominal Pain, Diarrhea, Nausea, Vomiting. absent: Hematochezia, Hematemesis Genitourinary Female: absent: Dysuria Physical Exam Vital Signs Reviewed: Yes Vital Signs Temp Pulse Resp BP Pulse Ox 05/23/17 08:20 98.1 F 51 L 17 177/80 H 97 Temperature: Afebrile Blood Pressure: Hypertensive Pulse: Bradycardic Respiratory Rate: Normal Appearance: Positive for: Well-Appearing, Non-Toxic, Comfortable Pain Distress: None Mental Status: Positive for: Alert and Oriented X 3 - Systems Exam Head: Present: Atraumatic, Normocephalic Pupils: Present: PERRL Extroacular Muscles: Present: EOMI Conjunctiva: Present: Normal Mouth: Present: Moist Mucous Membranes Neck: Present: Normal Range of Motion Respiratory/Chest: Present: Clear to Auscultation, Good Air Exchange. No: Respiratory Distress, Accessory Muscle Use, Wheezes, Retracting, Rhonchi Cardiovascular: Present: Regular Rate and Rhythm, Normal S1, S2. No: Murmurs Abdomen: Present: Normal Bowel Sounds. No: Tenderness, Distention, Peritoneal Signs, Rebound, Guarding Lower Extremity: Present: Normal Inspection, Normal ROM. No: Edema, Cyanosis, Deformity Neurological: Present: GCS=15, CN II-XII Intact, Speech Normal Skin: Present: Warm, Dry, Normal Color. No: Rashes Psychiatric: Present: Alert, Oriented x 3, Normal Insight, Normal Concentration Medical Decision Making ED Course and Treatment: 05/23/17 Impression: 62 year old female with unremarkable physical exam complaining of diarrhea and vomiting for the past three days. Plan: -- Labs -- Sodium Chloride -- Reassess and disposition Progress Notes: - Lab Interpretations Lab Results: 05/23/17 09:10 05/23/17 09:10 Lab Results 05/23/17 09:10: Sodium 142, Potassium 4.3, Chloride 105, Carbon Dioxide 23, Anion Gap 18, BUN 10, Creatinine 0.5 L, Est GFR ( Amer) > 60, Est GFR ( Non-Af Amer) > 60, Random Glucose 144 H, Calcium 9.8, Total Bilirubin 0.5, AST 27, ALT 15, Alkaline Phosphatase 70, Total Protein 8.3, Albumin 4.2, Globulin 4.1, Albumin/Globulin Ratio 1.0 L 05/23/17 09:10: WBC 5.4 D, RBC 4.27, Hgb 13.1, Hct 40.7, MCV 95.3, MCH 30.7, MCHC 32.2, RDW 12.5, Plt Count 227, MPV 10.6, Gran % 61.6, Lymph % (Auto) 28.2, [place] % (Auto) 7.8 H, Eos % (Auto) 2.0, Baso % (Auto) 0.4, Gran # 3.32, Lymph # ( Auto) 1.5, [place] # (Auto) 0.4, Eos # (Auto) 0.1, Baso # (Auto) 0.02 I have reviewed the lab results: Yes - Medication Orders Current Medication Orders: Sodium Chloride (Sodium Chloride 0.9%) 1,000 mls @ 999 mls/hr IV .Q1H1M STA Stop: 05/23/17 09:40 Last Admin: 05/23/17 09:32 Dose: 999 mls/hr eMAR Start Stop Document 05/23/17 09:32 RG (Rec: 05/23/17 09:33 RG [id number]) Intravenous Solution Start Date 05/23/17 Start Time 09:32 - Scribe Statement The provider has reviewed the documentation as recorded by the Leo Gunter Provider Scribe Attestation: All medical record entries made by the Scribweston were at my direction and personally dictated by me. I have reviewed the chart and agree that the record accurately reflects my personal performance of the history, physical exam, medical decision making, and the department course for this patient. I have also personally directed, reviewed, and agree with the discharge instructions and disposition. Disposition/Present on Arrival - Present on Arrival Any Indicators Present on Arrival: No History of DVT/PE: No History of Uncontrolled Diabetes: No Urinary Catheter: No History of Decub. Ulcer: No History Surgical Site Infection Following: None - Disposition Have Diagnosis and Disposition been Completed?: Yes Diagnosis: Gastroenteritis, Diarrhea Disposition: HOME/ ROUTINE Disposition Time: 09:40 Patient Plan: Discharge Condition: STABLE Additional Instructions: Pepto-Bismol if needed for diarrhea. Forms: [employer] (Danish)
[2017-05-23 09:30] LABS: BASO # 0.02 K/mm3 (0.0-2.0); BASO % 0.4 % (0.0-3.0); EOS # 0.1 (0.0-0.7); GRAN # 3.32 (1.4-6.5); GRAN % 61.6 % (50.0-68.0); HEMOGLOBIN 13.1 g/dL (12.0-16.0); LYMPH # 1.5 (1.2-3.4); LYMPH % 28.2 % (22.0-35.0); MEAN CELL VOLUME 95.3 fl (80.0-105.0); MEAN CORPUSCULAR HEMOGLOBIN 30.7 pg (25.0-35.0); MEAN CORPUSCULAR HGB CONC 32.2 g/dl (31.0-37.0); MEAN PLATELET VOLUME 10.6 fl (7.0-11.0); MONO # 0.4 (0.1-0.6); MONO % 7.8 % (1.0-6.0); RBC 4.27 10^6/uL (3.5-6.1); RED CELL DISTRIBUTION WIDTH 12.5 % (11.5-14.5); WHITE BLOOD COUNT 5.4 10^3/ul (4.5-11.0)
[2017-05-23 09:33] LABS: ALBUMIN 4.2 g/dL (3.0-4.8); ALT/SGPT 15 U/L (7-56); AST/SGOT 27 U/L (14-36); BLOOD UREA NITROGEN 10 mg/dL (7-21); CALCIUM 9.8 mg/dL (8.4-10.5); GFR AFRICAN-AMERICAN > 60; GFR NON-AFRICAN AMERICAN > 60
[2017-05-23 10:15] VITALS: BP 172/81; PULSE 60; RESP 18
== END 2017-05-23 10:02 | disposition home or self-care (01) ==
LOC: ED 08:01
DX: K52.9 Noninfective gastroenteritis and colitis, unspecified (principal); F17.210 Nicotine dependence, cigarettes, uncomplicated; I10 Essential (primary) hypertension
CPT/HCPCS: 80053; 85025; 96374; 99284; J2405; J7040

== ENCOUNTER 2017-09-05 09:33 | Emergency (ER) | payer OTHER ==
[2017-09-05 09:36] VITALS: BMI 29.6
[2017-09-05 10:04] VITALS: TEMP 98.6; O2SAT 99
--- NOTE | 2017-09-05 10:45 | ED PDOC ---
Arrival/HPI - General Chief Complaint: Back Pain Time Seen by Provider: 09/05/17 10:16 Historian: Patient - History of Present Illness Narrative History of Present Illness (Text): 09/05/17 10:43 62yo female with PMhx of hypertension who present with complaint of right sided back pain that radiates to her right lower extremity. She reports history of same pain, states it started radiating to her leg recently. Describes pain as crampy. States she takes Tylenol with some relieve. she denies ripping/tearing upper back pain, abdominal pain, urinary symptoms, focal weakness, urinary/ fecal incontinence, calf pain, any other complaint. Past Medical History - Provider Review Nursing Documentation Reviewed: Yes - Past History Past History: No Previous - Infectious Disease Hx of Infectious Diseases: None - Tetanus Immunization Tetanus Immunization: Unknown - Cardiac Hx Cardiac Disorders: Yes Hx Hypertension: Yes - Pulmonary Hx Respiratory Disorders: No - Neurological Hx Neurological Disorder: No - HEENT Hx Macular Degeneration: Yes - Renal Hx Renal Disorder: No - Endocrine/Metabolic Hx Endocrine Disorders: No - Hematological/Oncological Hx Blood Disorders: No - Integumentary Hx Dermatological Disorder: No - Musculoskeletal/Rheumatological Hx Musculoskeletal Disorders: Yes Hx Back Pain: Yes - Gastrointestinal Hx Gastrointestinal Disorders: No - Genitourinary/Gynecological Hx Genitourinary Disorders: Yes Hx Urinary Tract Infection: Yes - Psychiatric Hx Psychophysiologic Disorder: No Hx Substance Use: No - Surgical History Hx Section: Yes Hx Orthopedic Surgery: Yes (L KNEE) - Anesthesia Hx Anesthesia: Yes Hx Anesthesia Reactions: No Hx Malignant Hyperthermia: No - Suicidal Assessment Feels Threatened In Home Enviroment: No Family/Social History - Physician Review Nursing Documentation Reviewed: Yes Family/Social History: Unknown Family HX Smoking Status: Light Smoker < 10 Cigarettes Daily Hx Alcohol Use: Yes Hx Substance Use: No Hx Substance Use Treatment: No Allergies/Home Meds Allergies/Adverse Reactions: Allergies morphine Allergy (Verified 09/05/17 09:56) RASH oxycodone HCl [From Percocet] Allergy (Verified 09/05/17 09:56) REDNESS oxycodone Adverse Reaction (Verified 09/05/17 09:56) NAUSEA Home Medications: Home Meds Medication Instructions Recorded Confirmed Enalapril Maleate [Vasotec] 10 mg PO DAILY 09/05/17 09/05/17 Ergocalciferol (Vitamin D2) 50,000 unit PO QWK 09/05/17 09/05/17 [Vitamin D2] Review of Systems - Physician Review All systems were reviewed & negative as marked: Yes - Review of Systems Constitutional: Normal Eyes: Normal ENT: Normal Respiratory: Normal Cardiovascular: Normal Gastrointestinal: Normal Genitourinary Female: Normal Musculoskeletal: Back Pain Skin: Normal Neurological: Normal Endocrine: Normal Hemo/Lymphatic: Normal Psychiatric: Normal Physical Exam Vital Signs Reviewed: Yes Vital Signs Temp Pulse Resp BP Pulse Ox 09/05/17 11:42 68 18 124/68 99 09/05/17 09:58 98.6 F 50 L 16 148/75 99 Temperature: Afebrile Blood Pressure: Normal Pulse: Regular Respiratory Rate: Normal Appearance: Positive for: Well-Appearing, Non-Toxic, Comfortable Pain Distress: None Mental Status: Positive for: Alert and Oriented X 3 - Systems Exam Head: Present: Atraumatic, Normocephalic Pupils: Present: PERRL Extroacular Muscles: Present: EOMI Conjunctiva: Present: Normal Mouth: Present: Moist Mucous Membranes Neck: Present: Normal Range of Motion Respiratory/Chest: Present: Clear to Auscultation, Good Air Exchange. No: Respiratory Distress, Accessory Muscle Use Cardiovascular: Present: Regular Rate and Rhythm, Normal S1, S2. No: Murmurs Abdomen: No: Tenderness, Distention, Peritoneal Signs Back: Present: Paraspinal Tenderness (Right mid/lower paraspinous/lumbar tenderness). No: Pain with Leg Raise Upper Extremity: Present: Normal Inspection. No: Cyanosis, Edema Lower Extremity: Present: Normal Inspection. No: Edema Neurological: Present: GCS=15, CN II-XII Intact, Speech Normal Skin: Present: Warm, Dry, Normal Color. No: Rashes Psychiatric: Present: Alert, Oriented x 3, Normal Insight, Normal Concentration Medical Decision Making ED Course and Treatment: 09/05/17 19:54 PT in ED for stated history. Her pain was reproducible. Pain was controlled with medication in ED. she was treated with Keflex for UTI. LS xray - DJD Result was DW the pt and she DC home with Naprosyn and flexeril Keflex for UTI. Referred to her PMD. she was ambulatory with normal gait and neurologically intact. - Lab Interpretations Lab Results: Lab Results 09/05/17 10:54: Urine Color Yellow, Urine Appearance Clear, Urine pH 6.0, Ur Specific [place] 1.020, Urine Protein Negative, Urine Glucose (UA) Negative, Urine Ketones Negative, Urine Blood Trace-intact H, Urine Nitrate Negative, Urine Bilirubin Negative, Urine Urobilinogen 0.2, Ur Leukocyte Esterase Moderate H, Urine RBC 1 - 3, Urine WBC 10 - 15, Ur Epithelial Cells 4 - 5, Urine Bacteria Mod - RAD Interpretation Radiology Orders: 09/05/17 10:16 LS SPINE WITH OBL > 18 YRS OLD [RAD] Stat - Medication Orders Current Medication Orders: Discontinued Medications Cephalexin Monohydrate (Keflex) 500 mg PO STAT STA PRN Reason: Protocol Stop: 09/05/17 11:08 Last Admin: 09/05/17 11:21 Dose: 500 mg Cyclobenzaprine HCl (Flexeril) 10 mg PO STAT STA Stop: 09/05/17 10:19 Last Admin: 09/05/17 11:06 Dose: 10 mg Ketorolac Tromethamine (Toradol) 60 mg IM STAT STA Stop: 09/05/17 10:18 Last Admin: 09/05/17 11:06 Dose: 60 mg MAR Pain Assessment Document 09/05/17 11:06 GMD (Rec: 09/05/17 11:06 GMD [id number]) Pain Reassessment Is this a pain reassessment? No Presence of Pain Presence of Pain Yes IM Administration Charges Document 09/05/17 11:06 GMD (Rec: 09/05/17 11:06 GMD [id number]) Injection Site MAR Injection Site Left Deltoid Charges for Administration # of IM Administrations 1 Disposition/Present on Arrival - Present on Arrival Any Indicators Present on Arrival: No History of DVT/PE: No History of Uncontrolled Diabetes: No Urinary Catheter: No History of Decub. Ulcer: No History Surgical Site Infection Following: None - Disposition Have Diagnosis and Disposition been Completed?: Yes Diagnosis: Back pain, UTI (urinary tract infection) Disposition: HOME/ ROUTINE Disposition Time: 11:25 Patient Plan: Discharge Condition: STABLE Discharge Instructions (ExitCare): Urinary Tract Infections in Adults, Low Back Pain in Adults Additional Instructions: Follow up with your doctor Return to ED for any new or worsening symptoms Prescriptions: Cephalexin [Keflex] 500 mg PO TID #21 capsule Cyclobenzaprine [Cyclobenzaprine HCl] 10 mg PO DAILY #10 tab Naproxen [Naprosyn] 500 mg PO BID #20 tab Referrals: Mayank Daly APN [Primary Care Provider] - Follow up with primary Forms: [employer] (Estonian), WORK NOTE
[2017-09-05 11:03] LABS: URINE BILIRUBIN NEGATIVE (NEGATIVE); URINE BLOOD TRACE-INTACT (NEGATIVE); URINE GLUCOSE (UA) NEGATIVE (NEGATIVE); URINE LEUKOCYTE ESTERASE MODERATE Leu/uL (NEGATIVE); URINE PROTEIN NEGATIVE mg/dL (<30 mg/dL); URINE UROBILINOGEN 0.2 E.U./dL (<1 E.U./dL)
[2017-09-05 11:06] LABS: URINE APPEARANCE CLEAR (CLEAR); URINE COLOR YELLOW (YELLOW)
[2017-09-05 11:13] LABS: URINE BACTERIA MOD (NEG)
--- NOTE | 2017-09-05 11:15 | RAD ---
PROCEDURE: Radiographs of the Lumbar Spine. HISTORY: Back pain COMPARISON: No prior. FINDINGS: BONES: Normal alignment. No listhesis. No fracture. DISC SPACES: Mild disc degeneration at L2-3 OTHER FINDINGS: There is mild curvature of the spine convex to the right IMPRESSION: Mild degenerative changes
[2017-09-05 11:43] VITALS: BP 124/68; PULSE 68; RESP 18
== END 2017-09-05 11:56 | disposition home or self-care (01) ==
LOC: ED 09:33
DX: N39.0 Urinary tract infection, site not specified (principal); M54.5 Low back pain
CPT/HCPCS: 72110; 81001; 87086; 96372; 99283; J1885

== ENCOUNTER 2017-09-13 08:05 | Emergency (ER) | payer OTHER ==
[2017-09-13 08:06] VITALS: BMI 29.6
[2017-09-13 08:21] VITALS: BP 127/61; RESP 18
[2017-09-13] MEDS ORDERED: Albuterol-Ipratrop 3 mg / 0.5 (3 ml) UD IH STA (09:00)
--- NOTE | 2017-09-13 09:05 | ED PDOC ---
Arrival/HPI - General Chief Complaint: Cough, Cold, Congestion Time Seen by Provider: 09/13/17 08:59 Historian: Patient - History of Present Illness Narrative History of Present Illness (Text): 09/13/17 09:02 62 year old female, with no significant past medical history, who presents to the emergency department complaining of a subjective fever, body aches, nasal congestion, and a nonproductive cough since yesterday. Patient notes she took her temperature yesterday at 101. Patient denies any chest pain, shortness of breath, nausea, vomiting, diarrhea, back pain, neck pain, headache, dizziness, or any other complaints. Time/Duration: Other (1 day) Symptom Onset: Gradual Symptom Course: Unchanged Activities at Onset: Light Context: Home Past Medical History - Provider Review Nursing Documentation Reviewed: Yes - Past History Past History: No Previous - Infectious Disease Hx of Infectious Diseases: None - Tetanus Immunization Tetanus Immunization: Unknown - Cardiac Hx Cardiac Disorders: Yes Hx Hypertension: Yes - Pulmonary Hx Respiratory Disorders: No - Neurological Hx Neurological Disorder: No - HEENT Hx Macular Degeneration: Yes - Renal Hx Renal Disorder: No - Endocrine/Metabolic Hx Endocrine Disorders: No - Hematological/Oncological Hx Blood Disorders: No - Integumentary Hx Dermatological Disorder: No - Musculoskeletal/Rheumatological Hx Musculoskeletal Disorders: Yes Hx Back Pain: Yes - Gastrointestinal Hx Gastrointestinal Disorders: No - Genitourinary/Gynecological Hx Genitourinary Disorders: Yes Hx Urinary Tract Infection: Yes - Psychiatric Hx Psychophysiologic Disorder: No Hx Substance Use: No - Surgical History Hx Section: Yes Hx Orthopedic Surgery: Yes (L KNEE) - Anesthesia Hx Anesthesia: Yes Hx Anesthesia Reactions: No Hx Malignant Hyperthermia: No - Suicidal Assessment Feels Threatened In Home Enviroment: No Family/Social History - Physician Review Nursing Documentation Reviewed: Yes Family/Social History: No Known Family HX Smoking Status: Light Smoker < 10 Cigarettes Daily Hx Alcohol Use: Yes Hx Substance Use: No Hx Substance Use Treatment: No Allergies/Home Meds Allergies/Adverse Reactions: Allergies morphine Allergy (Verified 09/05/17 09:56) RASH oxycodone HCl [From Percocet] Allergy (Verified 09/05/17 09:56) REDNESS oxycodone Adverse Reaction (Verified 09/05/17 09:56) NAUSEA Home Medications: Home Meds Medication Instructions Recorded Confirmed Enalapril Maleate [Vasotec] 10 mg PO DAILY 09/05/17 09/05/17 Ergocalciferol (Vitamin D2) 50,000 unit PO QWK 09/05/17 09/05/17 [Vitamin D2] Review of Systems - Physician Review All systems were reviewed & negative as marked: Yes - Review of Systems Constitutional: Fevers Eyes: Normal ENT: Sinus Congestion Respiratory: Cough. absent: SOB Cardiovascular: Normal. absent: Chest Pain Gastrointestinal: Normal. absent: Abdominal Pain, Nausea, Vomiting Genitourinary Female: Normal. absent: Dysuria, Frequency, Hematuria, Urine Output Changes Musculoskeletal: Other (body aches) Skin: Normal. absent: Rash Neurological: Normal. absent: Headache, Dizziness Endocrine: Normal Hemo/Lymphatic: Normal Psychiatric: Normal Physical Exam Vital Signs Reviewed: Yes Vital Signs Temp Pulse Resp BP Pulse Ox 09/13/17 11:30 97.9 F 59 L 18 99 09/13/17 08:19 97.3 F L 53 L 18 127/61 96 Temperature: Afebrile Blood Pressure: Normal Pulse: Bradycardic Respiratory Rate: Normal Appearance: Positive for: Well-Appearing, Non-Toxic, Comfortable Pain Distress: None Mental Status: Positive for: Alert and Oriented X 3 - Systems Exam Head: Present: Atraumatic, Normocephalic Pupils: Present: PERRL Extroacular Muscles: Present: EOMI Conjunctiva: Present: Normal Mouth: Present: Moist Mucous Membranes Nose (Internal): Present: Rhinorrhea (clear rhinorrhea) Neck: Present: Normal Range of Motion. No: Meningeal Signs, MIDLINE TENDERNESS , Paraspinal Tenderness Respiratory/Chest: Present: Clear to Auscultation, Good Air Exchange. No: Respiratory Distress, Accessory Muscle Use, Wheezes, Decreased Breath Sounds, Rales Cardiovascular: Present: Regular Rate and Rhythm, Normal S1, S2. No: Murmurs Abdomen: No: Tenderness, Distention, Peritoneal Signs Back: Present: Normal Inspection Upper Extremity: Present: Normal Inspection. No: Cyanosis, Edema Lower Extremity: Present: Normal Inspection. No: Edema Neurological: Present: GCS=15, CN II-XII Intact, Speech Normal Skin: Present: Warm, Dry, Normal Color. No: Rashes Psychiatric: Present: Alert, Oriented x 3, Normal Insight, Normal Concentration Medical Decision Making ED Course and Treatment: 09/13/17 09:08 Impression: 62 year old female presents to the emergency department complaining of a subjective fever, body aches, a nonproductive cough, and nasal congestion since yesterday. Plan: -- Chest X-ray -- Duoneb -- Benzonatate -- Toradol -- Reassess and disposition Progress Notes: 09/13/17 09:38 EKG shows sinus bradycardia at 53bpm 09/13/17 10:18 Chest X-ray reviewed, shows: LUNGS: No active pulmonary disease. PLEURA: No significant pleural effusion identified. No pneumothorax apparent. CARDIOVASCULAR: Normal. OSSEOUS STRUCTURES: No significant abnormalities. VISUALIZED UPPER ABDOMEN: Normal. OTHER FINDINGS: None. IMPRESSION: No active disease. 09/13/17 12:55 Labs grossly normal. Symptoms consistent with viral uri - Lab Interpretations Lab Results: 09/13/17 10:30 09/13/17 10:25 Lab Results 09/13/17 10:30: WBC 8.5 D, RBC 3.96, Hgb 11.8 L, Hct 35.9 L, MCV 90.7 D, MCH 29.8, MCHC 32.9, RDW 12.7, Plt Count 189, MPV 10.1, Gran % 62.7, Lymph % (Auto) 26.0, [place] % (Auto) 9.9 H, Eos % (Auto) 1.2 L, Baso % (Auto) 0.2, Gran # 5.33, Lymph # (Auto) 2.2, [place] # (Auto) 0.8 H, Eos # (Auto) 0.1, Baso # (Auto) 0.02 09/13/17 10:25: Sodium 140, Potassium 4.1, Chloride 103, Carbon Dioxide 24, Anion Gap 17, BUN 12, Creatinine 0.4 L, Est GFR ( Amer) > 60, Est GFR ( Non-Af Amer) > 60, Random Glucose 105, Calcium 8.7, Total Bilirubin 0.3, AST 27 , ALT 28, Alkaline Phosphatase 76, Troponin I < 0.01, Total Protein 8.0, Albumin 4.1, Globulin 3.8, Albumin/Globulin Ratio 1.1 - RAD Interpretation Radiology Orders: 09/13/17 08:59 CHEST TWO VIEWS (PA/LAT) [RAD] Stat - Medication Orders Current Medication Orders: Discontinued Medications Acetaminophen (Tylenol 325mg Tab) 650 mg PO STAT STA Stop: 09/13/17 10:19 Last Admin: 09/13/17 11:04 Dose: 650 mg MAR Pain/Vitals Document 09/13/17 11:04 [email or web address] (Rec: 09/13/17 11:04 [facility] [id number]) Pain Reassessment Is This A Pain ReAssessment? No Sleep Is patient sleeping during reassessment? No Presence of Pain Presence of Pain Yes Pain Scale Used Pain Scale Used Numeric Location Pain Location Body Site Chest Description Constant Intensity 7 Scale Used Numeric Pain Behavior Facial Grimacing Aggravating Factors Changing Position Alleviating Factors Medication Albuterol/Ipratropium (Duoneb 3 Mg/0.5 Mg (3 Ml) Ud) 3 ml IH STAT STA Stop: 09/13/17 09:01 Last Admin: 09/13/17 09:55 Dose: 3 ml Benzonatate (Tessalon Perles) 100 mg PO STAT STA Stop: 09/13/17 09:01 Last Admin: 09/13/17 09:55 Dose: 100 mg Ketorolac Tromethamine (Toradol) 15 mg IM STAT STA Stop: 09/13/17 09:01 Last Admin: 09/13/17 09:56 Dose: 15 mg MAR Pain Assessment Document 09/13/17 09:56 [email or web address] (Rec: 09/13/17 09:56 [facility] [id number]) Pain Reassessment Is this a pain reassessment? No Sleep Is patient sleeping during reassessment? No Presence of Pain Presence of Pain Yes Pain Scale Used Pain Scale Used Numeric Location Pain Location Body Site Chest Description Description Constant Intensity of Pain at present 7 Pain Behavior Facial Grimacing Aggravating Factors Changing Position Alleviating Factors/Management Position Change Techniques Alleviating Factors Medication IM Administration Charges Document 09/13/17 09:56 [email or web address] (Rec: 09/13/17 09:56 [facility] [id number]) Injection Site MAR Injection Site Right Deltoid Charges for Administration # of IM Administrations 1 - Scribe Statement The provider has reviewed the documentation as recorded by the Scribe Tammy Buchanan All medical record entries made by the Scribe were at my direction and personally dictated by me. I have reviewed the chart and agree that the record accurately reflects my personal performance of the history, physical exam, medical decision making, and the department course for this patient. I have also personally directed, reviewed, and agree with the discharge instructions and disposition. Disposition/Present on Arrival - Present on Arrival Any Indicators Present on Arrival: No History of DVT/PE: No History of Uncontrolled Diabetes: No Urinary Catheter: No History of Decub. Ulcer: No History Surgical Site Infection Following: None - Disposition Have Diagnosis and Disposition been Completed?: Yes Diagnosis: Upper respiratory infection, Cough Disposition: HOME/ ROUTINE Disposition Time: 11:27 Patient Plan: Discharge Condition: GOOD Discharge Instructions (ExitCare): Viral Upper Respiratory Infection, Adult (DC ) Additional Instructions: Follow-up with PMD within 2 days. Return to ED if condition worsens. Prescriptions: Benzonatate [Tessalon Perles] 100 mg PO TID PRN #20 sgl PRN Reason: Cough Referrals: Ying Daly DO [Primary Care Provider] - Follow up with primary Forms: [facility] (German), WORK NOTE
--- NOTE | 2017-09-13 10:10 | RAD ---
HISTORY: cough COMPARISON: 03/28/2017 TECHNIQUE: Chest PA and lateral FINDINGS: LUNGS: No active pulmonary disease. PLEURA: No significant pleural effusion identified. No pneumothorax apparent. CARDIOVASCULAR: Normal. OSSEOUS STRUCTURES: No significant abnormalities. VISUALIZED UPPER ABDOMEN: Normal. OTHER FINDINGS: None. IMPRESSION: No active disease.
[2017-09-13 10:40] LABS: BASO # 0.02 K/mm3 (0.0-2.0); BASO % 0.2 % (0.0-3.0); EOS # 0.1 (0.0-0.7); EOS % 1.2 % (1.5-5.0); GRAN # 5.33 (1.4-6.5); GRAN % 62.7 % (50.0-68.0); HEMOGLOBIN 11.8 g/dL (12.0-16.0); LYMPH # 2.2 (1.2-3.4); MEAN CELL VOLUME 90.7 fl (80.0-105.0); MEAN CORPUSCULAR HEMOGLOBIN 29.8 pg (25.0-35.0); MEAN CORPUSCULAR HGB CONC 32.9 g/dl (31.0-37.0); MEAN PLATELET VOLUME 10.1 fl (7.0-11.0); MONO # 0.8 (0.1-0.6); MONO % 9.9 % (1.0-6.0); RBC 3.96 10^6/uL (3.5-6.1); RED CELL DISTRIBUTION WIDTH 12.7 % (11.5-14.5); WHITE BLOOD COUNT 8.5 10^3/ul (4.5-11.0)
[2017-09-13 11:07] LABS: ALB/GLOB RATIO 1.1 (1.1-1.8); ALBUMIN 4.1 g/dL (3.0-4.8); ALT/SGPT 28 U/L (7-56); AST/SGOT 27 U/L (14-36); BLOOD UREA NITROGEN 12 mg/dL (7-21); CALCIUM 8.7 mg/dL (8.4-10.5); GFR AFRICAN-AMERICAN > 60; GFR NON-AFRICAN AMERICAN > 60
[2017-09-13 11:18] LABS: TROPONIN I < 0.01 ng/mL
[2017-09-13 11:32] VITALS: PULSE 59; TEMP 97.9; O2SAT 99
--- NOTE | 2017-09-13 14:25 | CARD ---
APPROVED REPORT EKG Measurement Heart [id number] <Conclusion> Sinus bradycardia Otherwise normal ECG
== END 2017-09-13 11:31 | disposition home or self-care (01) ==
LOC: ED 08:05
DX: J06.9 Acute upper respiratory infection, unspecified (principal); R05 Cough; I10 Essential (primary) hypertension; F17.210 Nicotine dependence, cigarettes, uncomplicated
CPT/HCPCS: 71046; 80053; 84484; 85025; 93005; 96372; 99282; J1885

== ENCOUNTER 2017-10-30 16:14 | Emergency (ER) | payer OTHER ==
[2017-10-30 16:47] VITALS: RESP 18; TEMP 98.5; O2SAT 100
[2017-10-30 17:27] VITALS: BMI 30.7
--- NOTE | 2017-10-30 17:35 | ED PDOC ---
Arrival/HPI <Adams,Ata P - Last Filed: 10/30/17 17:48> - General Historian: Patient - History of Present Illness Time/Duration: 24 hours Symptom Onset: Sudden Symptom Course: Unchanged Quality: Aching, Burning Severity Level: 5 Activities at Onset: Rest Context: Home <Kirstie Kan - Last Filed: 10/31/17 12:31> - General Chief Complaint: Back Pain Time Seen by Provider: 10/30/17 17:21 - History of Present Illness Narrative History of Present Illness (Text): 10/30/17 17:26 Pt is a 62 yr old female with PMH of HTN presents to the ED for right flank and abdominal pain x 3 days. Pt reports dysuria and malodorous urine and right mid back pain that radiates to the right LE down to the heel. Reports pain as 8/10; says nothing makes it better or worse, it remains constant. Denies fever, chills , chest pain, shortness of breath, nausea, vomiting, diarrhea, recent travel, trauma, or any other complaints (Kirstie Kan) Past Medical History - Provider Review Nursing Documentation Reviewed: Yes - Travel History Have you recently traveled outside [place] w/in the past 3 mons?: No - Past History Past History: No Previous - Infectious Disease Hx of Infectious Diseases: None - Tetanus Immunization Tetanus Immunization: Unknown - Cardiac Hx Cardiac Disorders: Yes Hx Hypertension: Yes - Pulmonary Hx Respiratory Disorders: No - Neurological Hx Neurological Disorder: No - HEENT Hx Macular Degeneration: Yes - Renal Hx Renal Disorder: No - Endocrine/Metabolic Hx Endocrine Disorders: No - Hematological/Oncological Hx Blood Disorders: No - Integumentary Hx Dermatological Disorder: No - Musculoskeletal/Rheumatological Hx Musculoskeletal Disorders: Yes Hx Back Pain: Yes - Gastrointestinal Hx Gastrointestinal Disorders: No - Genitourinary/Gynecological Hx Genitourinary Disorders: Yes Hx Urinary Tract Infection: Yes - Psychiatric Hx Psychophysiologic Disorder: No Hx Substance Use: No - Surgical History Hx Section: Yes Hx Orthopedic Surgery: Yes (L KNEE) - Anesthesia Hx Anesthesia: Yes Hx Anesthesia Reactions: No Hx Malignant Hyperthermia: No - Suicidal Assessment Feels Threatened In Home Enviroment: No <Kirstie Kan - Last Filed: 10/31/17 12:31> Family/Social History - Physician Review Nursing Documentation Reviewed: Yes Family/Social History: Unknown Family HX Smoking Status: Former Smoker Hx Alcohol Use: Yes Hx Substance Use: No Hx Substance Use Treatment: No <Kirstie Kan - Last Filed: 10/31/17 12:31> Allergies/Home Meds <Ata Adams - Last Filed: 10/30/17 17:48> <Kirstie Kan - Last Filed: 10/31/17 12:31> Allergies/Adverse Reactions: Allergies morphine Allergy (Verified 09/05/17 09:56) RASH oxycodone HCl [From Percocet] Allergy (Verified 09/05/17 09:56) REDNESS oxycodone Adverse Reaction (Verified 09/05/17 09:56) NAUSEA Home Medications: Home Meds Medication Instructions Recorded Confirmed Enalapril Maleate [Vasotec] 10 mg PO DAILY 09/05/17 10/30/17 Review of Systems - Review of Systems Constitutional: Fatigue Eyes: Normal ENT: Normal Respiratory: Normal Cardiovascular: Normal. absent: Chest Pain Gastrointestinal: Normal, Abdominal Pain (lower abdominal pain). absent: Nausea , Vomiting Genitourinary Female: Dysuria, Frequency, Urine Output Changes. absent: Hematuria, Vaginal Bleeding, Vaginal Discharge Musculoskeletal: Back Pain Skin: Normal Neurological: Normal. absent: Headache Endocrine: Normal Hemo/Lymphatic: Normal Psychiatric: Normal <Kirstie Kan - Last Filed: 10/31/17 12:31> Physical Exam Vital Signs Reviewed: Yes Temperature: Afebrile Blood Pressure: Normal Pulse: Bradycardic Respiratory Rate: Normal Appearance: Positive for: Well-Appearing, Non-Toxic, Comfortable Pain Distress: Moderate Mental Status: Positive for: Alert and Oriented X 3 - Systems Exam Head: Present: Atraumatic, Normocephalic Respiratory/Chest: Present: Clear to Auscultation, Good Air Exchange. No: Respiratory Distress, Accessory Muscle Use Cardiovascular: Present: Regular Rate and Rhythm, Normal S1, S2. No: Murmurs Abdomen: Present: Tenderness (lower quadrant ), Normal Bowel Sounds. No: Distention, Peritoneal Signs, Rebound, Guarding, McBurney's Point Tender Back: Present: Normal Inspection Upper Extremity: Present: Normal Inspection, Normal ROM, NORMAL PULSES, Neurovascularly Intact. No: Cyanosis, Edema Lower Extremity: Present: Normal Inspection, NORMAL PULSES, Normal ROM, Capillary Refill < 2 s. No: Edema Neurological: Present: GCS=15, CN II-XII Intact, Speech Normal, Motor Func Grossly Intact, Normal Sensory Function, Gait Normal Skin: Present: Warm, Dry, Normal Color. No: Rashes Psychiatric: Present: Alert, Oriented x 3, Normal Insight, Normal Concentration <Kirstie Kan - Last Filed: 10/31/17 12:31> Vital Signs Temp Pulse Resp BP Pulse Ox 10/30/17 20:17 98.5 F 61 18 135/78 100 10/30/17 18:15 98.5 F 60 18 140/75 100 10/30/17 16:46 98.5 F 58 L 18 141/81 100 Medical Decision Making - Lab Interpretations I have reviewed the lab results: Yes - RAD Interpretation Business Services Clerk: Radiologist <Ata Adams - Last Filed: 10/30/17 17:48> - Lab Interpretations I have reviewed the lab results: Yes - RAD Interpretation Business Services Clerk: Radiologist <Kirstie Kan - Last Filed: 10/31/17 12:31> ED Course and Treatment: 10/30/17 17:35 Impression Pt is a 62 yr old female with PMH of HTN presents to the ED for right flank pain x 3 days On exam, (+) Right CVA tenderness with pain radiating to right LE, (+) right SLR w referral to LE, (+) point tender to lumbar and thoracic paraspinals and referral pattern to buttocks; the rest of the exam is benign Plan labs, UA Abdom CT w/o contrast assess and dispo Progress Note UA and labs Neg for infectious process Abdominal CT unremarkable for renal stone, GB pathology or appendicitis advised pt to f/u with spine and pain specialist; gera with require MRI to ascertain disc herniation or stenosis causing referred pain into LE Toradol 30mg IM Home with Motrin, Lidocaine patch and Robaxin VSS and ambulating well on d/c (Kirstie Kan) - Lab Interpretations Lab Results: 10/30/17 17:32 10/30/17 17:32 Lab Results 10/30/17 17:32: Sodium 141, Potassium 4.6, Chloride 104, Carbon Dioxide 25, Anion Gap 17, BUN 22 H, Creatinine 0.5 L, Est GFR ( Amer) > 60, Est GFR ( Non-Af Amer) > 60, Random Glucose 106, Calcium 9.3, Total Bilirubin 0.3, AST 24 , ALT 17, Alkaline Phosphatase 71, Total Protein 8.3, Albumin 4.4, Globulin 3.9 , Albumin/Globulin Ratio 1.1 10/30/17 17:32: Urine Color Light yellow, Urine Appearance Clear, Urine pH 6.0, Ur Specific [place] 1.020, Urine Protein Negative, Urine Glucose (UA) Negative, Urine Ketones Negative, Urine Blood Negative, Urine Nitrate Negative, Urine Bilirubin Negative, Urine Urobilinogen 0.2, Ur Leukocyte Esterase Negative 10/30/17 17:32: WBC 10.7 D, RBC 4.03, Hgb 12.3, Hct 36.9, MCV 91.6, MCH 30.5, MCHC 33.3, RDW 12.8, Plt Count 225, MPV 10.7, Gran % 57.8, Lymph % (Auto) 32.8, [place] % (Auto) 6.9 H, Eos % (Auto) 2.2, Baso % (Auto) 0.3, Gran # 6.18, Lymph # ( Auto) 3.5 H, [place] # (Auto) 0.7 H, Eos # (Auto) 0.2, Baso # (Auto) 0.03 - RAD Interpretation Narrative RAD Interpretations (Text): 10/30/17 19:48 EXAM: CT Abdomen and Pelvis Without Intravenous Contrast CLINICAL HISTORY: 62 years old, female; Pain; Abdominal pain; Acute; Additional info: R/O renal stone TECHNIQUE: Axial computed tomography images of the abdomen and pelvis without intravenous contrast. All CT scans at this facility use at least one of these dose optimization techniques: automated exposure control; mA and/or kV adjustment per patient size (includes targeted exams where dose is matched to clinical indication); or iterative reconstruction. COMPARISON: CT - ABD PELVIS W/O PO OR IV CONT 2017-02-28 10:38 FINDINGS: Lung bases: Unremarkable. No mass. No consolidation. ABDOMEN: Liver: Unremarkable. Gallbladder and bile ducts: Unremarkable. No calcified stones. No ductal dilation. Pancreas: Pancreas is unremarkable. No peripancreatic fluid or inflammatory changes. No ductal dilation. Spleen: Unremarkable. No splenomegaly. Adrenals: Unremarkable. No mass. Kidneys and ureters: No hydronephrosis or hydroureter or evidence of obstructive nephrolithiasis. Stomach and bowel: No areas of wall thickening in the large bowel. No evidence of large bowel obstruction. No pericolonic inflammatory changes to suggest acute diverticulitis. No wall thickening in the small bowel. No evidence of small bowel obstruction. PELVIS: Appendix: No distended tubular structure in right lower quadrant. No inflammatory changes seen in right lower quadrant. No findings to suggest acute appendicitis. Bladder: Unremarkable. No stones. Reproductive: Unremarkable as visualized. ABDOMEN and PELVIS: Intraperitoneal space: Unremarkable. No free air. No significant fluid collection. Bones/joints: Degenerative changes in the spine. No evidence of fracture. No dislocation. Soft tissues: Unremarkable. Vasculature: Unremarkable. No abdominal aortic aneurysm. Lymph nodes: Unremarkable. No enlarged lymph nodes. IMPRESSION: No hydronephrosis or hydroureter or evidence of obstructive nephrolithiasis. (Kirstie Kan) Radiology Orders: 10/30/17 17:22 ABDOMEN & PELVIS [ABD & PELVIS W/O PO OR IV CONT] [CT] Stat - Medication Orders Current Medication Orders: Discontinued Medications Ketorolac Tromethamine (Toradol) 30 mg IM STAT STA Stop: 10/30/17 19:22 Last Admin: 10/30/17 19:36 Dose: 30 mg MAR Pain Assessment Document 10/30/17 19:36 [place] (Rec: 10/30/17 19:37 [id number] Pain Reassessment Is this a pain reassessment? No Sleep Is patient sleeping during reassessment? No Presence of Pain Presence of Pain Yes Pain Scale Used Pain Scale Used Numeric Description Description Constant Intensity of Pain at present 5 IM Administration Charges Document 10/30/17 19:36 LA (Rec: 10/30/17 19:37 [id number]) Charges for Administration # of IM Administrations 1 Disposition/Present on Arrival <Ata Adams - Last Filed: 10/30/17 17:48> - Present on Arrival Any Indicators Present on Arrival: Yes History of DVT/PE: No History of Uncontrolled Diabetes: No Urinary Catheter: No History of Decub. Ulcer: No History Surgical Site Infection Following: None - Disposition Have Diagnosis and Disposition been Completed?: Yes Disposition Time: 19:49 Patient Plan: Discharge <Kirstie Kan - Last Filed: 10/31/17 12:31> - Disposition Diagnosis: Lumbago with sciatica, right side Disposition: HOME/ ROUTINE Condition: STABLE Discharge Instructions (ExitCare): Low Back Pain (DC) Additional Instructions: [place], thank you for letting us take care of you today. Your provider was Ata Adams MD and LEILANI Kan and you were treated for Sciatica. The emergency medical care you received today was directed at your acute symptoms. If you were prescribed any medication, please fill it and take as directed. It may take several days for your symptoms to resolve. Return to the Emergency Department if your symptoms worsen, do not improve, or if you have any other problems. PLEASE FOLLOW UP WITH YOUR DOCTOR IN 2 DAYS AND TAKE MOTRIN FOR PAIN ALONG WITH MUSCLE RELAXANT AND LIDOCAINE PATCH Please contact your doctor or call one of the physicians/clinics you have been referred to that are listed on the Patient Visit Information form that is included in your discharge packet. Bring any paperwork you were given at discharge with you along with any medications you are taking to your follow up visit. Our treatment cannot replace ongoing medical care by a primary care provider outside of the emergency department. Thank you for allowing the [facility] team to be part of your care today. If you had an X-Ray or CT scan: A Radiologist will review the ED reading if any change in treatment is needed we will contact you. If you had a blood, urine, or wound culture: It will take several days for the results, if any change in treatment is needed we will contact you. If you had an STI test: It will take 48 hours for the results. Please call after 1 week if you have not heard back. Prescriptions: Ibuprofen [Motrin Tab] 600 mg PO Q6 PRN 5 Days #20 tab PRN Reason: pain/fever Lidocaine 1 each TP DAILY 5 Days #5 adh..patch Methocarbamol [Robaxin] 500 mg PO TID 5 Days #15 tab Referrals: Mayank Daly APN [Primary Care Provider] - Follow up with primary Forms: [employer] (Azeri), WORK NOTE
[2017-10-30 17:50] LABS: BASO # 0.03 K/mm3 (0.0-2.0); BASO % 0.3 % (0.0-3.0); EOS # 0.2 (0.0-0.7); EOS % 2.2 % (1.5-5.0); GRAN # 6.18 (1.4-6.5); GRAN % 57.8 % (50.0-68.0); HEMOGLOBIN 12.3 g/dL (12.0-16.0); LYMPH # 3.5 (1.2-3.4); LYMPH % 32.8 % (22.0-35.0); MEAN CELL VOLUME 91.6 fl (80.0-105.0); MEAN CORPUSCULAR HEMOGLOBIN 30.5 pg (25.0-35.0); MEAN CORPUSCULAR HGB CONC 33.3 g/dl (31.0-37.0); MEAN PLATELET VOLUME 10.7 fl (7.0-11.0); MONO # 0.7 (0.1-0.6); MONO % 6.9 % (1.0-6.0); RBC 4.03 10^6/uL (3.5-6.1); RED CELL DISTRIBUTION WIDTH 12.8 % (11.5-14.5); WHITE BLOOD COUNT 10.7 10^3/ul (4.5-11.0)
[2017-10-30 17:55] LABS: URINE BILIRUBIN NEGATIVE (NEGATIVE); URINE BLOOD NEGATIVE (NEGATIVE); URINE GLUCOSE (UA) NEGATIVE (NEGATIVE); URINE LEUKOCYTE ESTERASE NEGATIVE Leu/uL (NEGATIVE); URINE PROTEIN NEGATIVE mg/dL (<30 mg/dL); URINE UROBILINOGEN 0.2 E.U./dL (<1 E.U./dL)
[2017-10-30 17:57] LABS: ALB/GLOB RATIO 1.1 (1.1-1.8); ALBUMIN 4.4 g/dL (3.0-4.8); ALT/SGPT 17 U/L (7-56); AST/SGOT 24 U/L (14-36); BLOOD UREA NITROGEN 22 mg/dL (7-21); CALCIUM 9.3 mg/dL (8.4-10.5); GFR AFRICAN-AMERICAN > 60; GFR NON-AFRICAN AMERICAN > 60
[2017-10-30 17:59] LABS: URINE APPEARANCE CLEAR (CLEAR); URINE COLOR LIGHT YELLOW (YELLOW)
[2017-10-30 21:49] VITALS: BP 135/78; PULSE 61
--- NOTE | 2017-10-31 10:03 | CT ---
Date of service: 10/30/2017 PROCEDURE: CT Abdomen and Pelvis without intravenous contrast HISTORY: R/O Renal Stone COMPARISON: None. TECHNIQUE: Without contrast. Contrast dose: Radiation dose: Total exam DLP = 719 mGy-cm. This CT exam was performed using one or more of the following dose reduction techniques: Automated exposure control, adjustment of the mA and/or kV according to patient size, and/or use of iterative reconstruction technique. FINDINGS: LOWER THORAX: Unremarkable. LIVER: Unremarkable. No gross lesion or ductal dilatation. GALLBLADDER AND BILE DUCTS: Unremarkable. PANCREAS: Unremarkable. No gross lesion or ductal dilatation. SPLEEN: Unremarkable. ADRENALS: Unremarkable. No mass. KIDNEYS AND URETERS: Unremarkable. No hydronephrosis. No solid mass. VASCULATURE: Unremarkable. No aortic aneurysm. BOWEL: Unremarkable. No obstruction. No gross mural thickening. APPENDIX: Unremarkable. Normal appendix. PERITONEUM: Unremarkable. No free fluid. No free air. LYMPH NODES: Unremarkable. No enlarged lymph nodes. BLADDER: Unremarkable. REPRODUCTIVE: Unremarkable. BONES: No acute fracture. OTHER FINDINGS: None. IMPRESSION: No acute findings. No evidence of urolithiasis
== END 2017-10-30 20:17 | disposition home or self-care (01) ==
LOC: ED 16:14
DX: M54.41 Lumbago with sciatica, right side (principal); I10 Essential (primary) hypertension; Z87.891 Personal history of nicotine dependence
CPT/HCPCS: 74176; 80053; 81003; 85025; 96372; 99284; J1885

== ENCOUNTER 2018-01-16 18:42 | Observation (INO) | payer OTHER ==
[2018-01-16 19:31] VITALS: BMI 33.0
[2018-01-16] MEDS ORDERED: Sodium Chloride 0.9% 1,000 ML IV STA (19:34)
--- NOTE | 2018-01-16 19:45 | ED PDOC ---
Arrival/HPI - General Chief Complaint: GI Problem Time Seen by Provider: 01/16/18 19:13 Historian: Patient - History of Present Illness Narrative History of Present Illness (Text): 01/16/18 19:48 A 62 year old female, whose past medical history includes Hypertension, gastritis, presents to the emergency department complaining of upper abdominal pain with associated diarrhea starting a few days ago. Patient denies fever, chills, vomiting, back pain, urinary symptoms, chest pain, shortness of breath, or any other complaints at this time. Symptom Onset: Gradual Symptom Course: Unchanged Activities at Onset: Light Context: Home Past Medical History - Provider Review Nursing Documentation Reviewed: Yes - Past History Past History: No Previous - Infectious Disease Hx of Infectious Diseases: None - Tetanus Immunization Tetanus Immunization: Unknown - Cardiac Hx Cardiac Disorders: Yes Hx Hypertension: Yes - Pulmonary Hx Respiratory Disorders: No - Neurological Hx Neurological Disorder: No - HEENT Hx Macular Degeneration: Yes - Renal Hx Renal Disorder: No - Endocrine/Metabolic Hx Endocrine Disorders: No - Hematological/Oncological Hx Blood Disorders: No - Integumentary Hx Dermatological Disorder: No - Musculoskeletal/Rheumatological Hx Musculoskeletal Disorders: Yes Hx Back Pain: Yes - Gastrointestinal Hx Gastrointestinal Disorders: No - Genitourinary/Gynecological Hx Genitourinary Disorders: Yes Hx Urinary Tract Infection: Yes - Psychiatric Hx Psychophysiologic Disorder: No Hx Substance Use: No - Surgical History Hx Section: Yes Hx Orthopedic Surgery: Yes (L KNEE) - Anesthesia Hx Anesthesia: Yes Hx Anesthesia Reactions: No Hx Malignant Hyperthermia: No - Suicidal Assessment Feels Threatened In Home Enviroment: No Family/Social History - Physician Review Nursing Documentation Reviewed: Yes Family/Social History: No Known Family HX Smoking Status: Former Smoker Hx Alcohol Use: Yes Hx Substance Use: No Hx Substance Use Treatment: No Allergies/Home Meds Allergies/Adverse Reactions: Allergies morphine Allergy (Verified 01/16/18 19:30) RASH oxycodone HCl [From Percocet] Allergy (Verified 01/16/18 19:30) REDNESS oxycodone Adverse Reaction (Verified 01/16/18 19:30) NAUSEA Home Medications: Home Meds Medication Instructions Recorded Confirmed RX: Enalapril Maleate [Vasotec] 10 mg PO DAILY 09/05/17 10/30/17 Review of Systems - Physician Review All systems were reviewed & negative as marked: Yes - Review of Systems Constitutional: absent: Fevers, Night Sweats Respiratory: absent: SOB Cardiovascular: absent: Chest Pain Gastrointestinal: Abdominal Pain, Diarrhea. absent: Vomiting Musculoskeletal: absent: Back Pain Physical Exam Vital Signs Reviewed: Yes Vital Signs Temp Pulse Resp BP Pulse Ox 01/16/18 19:36 98.2 F 56 L 17 124/71 98 Temperature: Afebrile Blood Pressure: Normal Pulse: Regular Respiratory Rate: Normal Appearance: Positive for: Well-Appearing, Non-Toxic, Comfortable Pain Distress: None Mental Status: Positive for: Alert and Oriented X 3 - Systems Exam Pupils: Present: PERRL Extroacular Muscles: Present: EOMI Conjunctiva: Present: Normal Mouth: Present: Moist Mucous Membranes Neck: Present: Normal Range of Motion Respiratory/Chest: Present: Clear to Auscultation, Good Air Exchange. No: Respiratory Distress, Accessory Muscle Use Cardiovascular: Present: Regular Rate and Rhythm, Normal S1, S2. No: Murmurs Abdomen: Present: Tenderness (epigastric /mid abdomen) Back: Present: Normal Inspection Upper Extremity: Present: Normal Inspection. No: Cyanosis, Edema Lower Extremity: Present: Normal Inspection. No: Edema Neurological: Present: GCS=15, CN II-XII Intact, Speech Normal Skin: Present: Warm, Dry, Normal Color. No: Rashes Psychiatric: Present: Alert, Oriented x 3, Normal Insight, Normal Concentration Medical Decision Making ED Course and Treatment: 01/16/18 19:58 Impression: 62 year old female with upper abdominal pain. Plan: -- EKG -- Chest X-ray -- Pepcid -- IV Fuid -- Toradol -- Pancreas and Gallbladder Ultrasound -- Reassess and disposition Prior Visits: Notes and results from previous visits were reviewed. Patient was last seen here in the emergency department on 10/30/2017 for right flank and abdominal pain. Progress Notes: EKG: Ordered, reviewed, and independently interpreted the EKG. Rate : 51 BPM Rhythm : Sinus bradycardia. Interpretation : No ST-segment elevations or depressions, no T-wave inversions, normal intervals. Comparison : No previous EKG for comparison. 01/16/18 20:56 Chest X-Ray reviewed, shows no acute processes. 01/16/18 21:00 US Gallbladder and Pancreas Impression: No mass or biliary duct dilatation within the liver. Gallbladder within normal limits. Pancreas appears normal. Clinical correlation advised. CT Abdomen and Pelvis ordered. 01/16/18 22:59 CT Abdomen and Pelvis Impression: Jejunitis. Infectious and inflammatory etiologies are considered. Otherwise negative. 01/16/18 23:52 Case discussed with medical scribe credit control administrator, who is aware and agrees with plan. 01/17/18 00:[address] Caraballo, who is aware and agrees with plan. Accepts pt in to hospitalist service. Pt will go to [facility] observation for abdominal pain and enteritis. - Lab Interpretations I have reviewed the lab results: Yes - RAD Interpretation Radiology Orders: 01/16/18 19:33 CHEST PORTABLE [RAD] Stat GALLBLADDER & PANCREAS [US] Stat Microbiology Lab Manager: ED Physician, Radiologist - EKG Interpretation Interpreted by ED Physician: Yes Type: 12 lead EKG - Medication Orders Current Medication Orders: Sodium Chloride (Sodium Chloride 0.9%) 1,000 mls @ 999 mls/hr IV .Q1H1M STA Stop: 01/16/18 20:34 Discontinued Medications Famotidine (Pepcid) 20 mg IVP STAT STA Stop: 01/16/18 19:35 Ketorolac Tromethamine (Toradol) 30 mg IVP ONCE ONE Stop: 01/16/18 19:35 - Scribe Statement The provider has reviewed the documentation as recorded by the Leo Chew Provider Scribe Provider Scribe Attestation: All medical record entries made by the Scribe were at my direction and personally dictated by me. I have reviewed the chart and agree that the record accurately reflects my personal performance of the history, physical exam, medical decision making, and the department course for this patient. I have also personally directed, reviewed, and agree with the discharge instructions and disposition. Disposition/Present on Arrival - Present on Arrival Any Indicators Present on Arrival: No History of DVT/PE: No History of Uncontrolled Diabetes: No Urinary Catheter: No History of Decub. Ulcer: No History Surgical Site Infection Following: None - Disposition Have Diagnosis and Disposition been Completed?: Yes Diagnosis: Intractable abdominal pain Disposition: HOSPITALIZED Disposition Time: 23:45 Condition: STABLE
[2018-01-16 20:10] LABS: HEMOGLOBIN 12.1 g/dL (12.0-16.0); MEAN CELL VOLUME 91.6 fl (80.0-105.0); MEAN CORPUSCULAR HEMOGLOBIN 29.9 pg (25.0-35.0); MEAN CORPUSCULAR HGB CONC 32.6 g/dl (31.0-37.0); MEAN PLATELET VOLUME 10.1 fl (7.0-11.0); RBC 4.05 10^6/uL (3.5-6.1); RED CELL DISTRIBUTION WIDTH 12.6 % (11.5-14.5); WHITE BLOOD COUNT 7.7 10^3/ul (4.5-11.0)
[2018-01-16 20:20] LABS: INR 0.97; PARTIAL THROMBOPLASTIN TIME 27.1 Seconds (25.1-36.5); PROTHROMBIN TIME 11.1 SECONDS (9.4-12.5)
[2018-01-16 20:28] LABS: ALB/GLOB RATIO 1.1 (1.1-1.8); ALBUMIN 4.3 g/dL (3.0-4.8); ALT/SGPT 27 U/L (7-56); AST/SGOT 26 U/L (14-36); BLOOD UREA NITROGEN 14 mg/dL (7-21); CALCIUM 9.3 mg/dL (8.4-10.5); GFR NON-AFRICAN AMERICAN > 60; LIPASE 110 U/L (23-300)
[2018-01-16 20:39] LABS: TROPONIN I < 0.01 ng/mL
[2018-01-16] MEDS ORDERED: Morphine 2 mg/ml ISec IVP STA (21:18)
[2018-01-16] MEDS ORDERED: Iohexol 350 MG/100 ML VIAL ONE (21:27)
[2018-01-16] MEDS ORDERED: cefTRIAXone 1 gm 1 GM/100 ML BAG IV STA (23:48)
[2018-01-16] MEDS ORDERED: metroNIDAZOLE IV 500 mg/100 ml 500 MG/100 ML BAG IVPB STA (23:49)
[2018-01-17 00:45] VITALS: TEMP 97.8
--- NOTE | 2018-01-17 01:08 | CP.PCM.HP ---
<VirgilioLg - Last Filed: 01/17/18 02:12> History of Present Illness - History of Present Illness History of Present Illness: HISTORY & PHYSICAL NOTE FOR HOSPITALIST TEAM Lg Poole D.O. PGY-1 CC: Abdominal pain, diarrhea x 4 days 62 y/o F with PMHx of HTN, gastritis presents to [facility] with complaints of "sharp" diffuse, abdominal pain that comes and goes with associated non-bloody, non- mucinous yellow to black diarrhea that started four days ago. Pt reports she has not been able to eat due to the pain. She had tried taking pepto bismol and immodium for the diarrhea with no relief. She reports her abdomen is more "inflamed" than usual. She denies eating new foods, recent travel or sick family contacts. 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 Denies recent hospitalizations or recent antibiotic use. She denies fevers, chills, headache, dizziness, chest pain, palpitations, shortness of breath, constipation, dysuria, hematochezia, vaginal spotting. PMH: HTN, Gastritis All: Morphine, oxycodone, penicillin PSH: - 30 years ago, CVA- 3 yrs ago-noncompliant with aspirin SH: Works in daycare. Former smoker- 2-3 cigarettes/week x several years Hosp: Denies FH: Father: Asthma. Aunt: Breast Ca. Uncle: pancreatic Ca Meds: See MAR. Reviewed PMD: Dr. Barksdale Present on Admission - Present on Admission Any Indicators Present on Admission: No Review of Systems - Review of Systems Review of Systems: as per HPI Past Patient History - Infectious Disease Hx of Infectious Diseases: None - Tetanus Immunizations Tetanus Immunization: Unknown - Past Social History Smoking Status: Former Smoker - CARDIAC Hx Cardiac Disorders: Yes Hx Hypertension: Yes - PULMONARY Hx Respiratory Disorders: No - NEUROLOGICAL Hx Neurological Disorder: No - HEENT Hx Macular Degeneration: Yes - RENAL Hx Chronic Kidney Disease: No - ENDOCRINE/METABOLIC Hx Endocrine Disorders: No - HEMATOLOGICAL/ONCOLOGICAL Hx Blood Disorders: No - INTEGUMENTARY Hx Dermatological Problems: No - MUSCULOSKELETAL/RHEUMATOLOGICAL Hx Musculoskeletal Disorders: Yes Hx Back Pain: Yes - GASTROINTESTINAL Hx Gastrointestinal Disorders: No - GENITOURINARY/GYNECOLOGICAL Hx Genitourinary Disorders: Yes Hx Urinary Tract Infection: Yes - PSYCHIATRIC Hx Psychophysiologic Disorder: No Hx Substance Use: No - SURGICAL HISTORY Hx Section: Yes Hx Orthopedic Surgery: Yes (L KNEE) - ANESTHESIA Hx Anesthesia: Yes Hx Anesthesia Reactions: No Hx Malignant Hyperthermia: No Meds Home Medications: Home Medication List Medication Instructions Recorded Confirmed Type Lisinopril [Zestril] 10 mg PO DAILY tab 01/17/18 Rx Pantoprazole Sodium [Protonix] 20 mg PO BID #28 ect 01/17/18 Rx Allergies/Adverse Reactions: Allergies Allergy/AdvReac Type Severity Reaction Status Date / Time morphine Allergy RASH Verified 01/16/18 19:30 oxycodone HCl [From Percocet] Allergy REDNESS Verified 01/16/18 19:30 oxycodone AdvReac NAUSEA Verified 01/16/18 19:30 Physical Exam - Constitutional Appears: Well, Non-toxic, No Acute Distress - Head Exam Head Exam: NORMAL INSPECTION, NORMOCEPHALIC - Eye Exam Eye Exam: EOMI, Normal appearance - ENT Exam ENT Exam: Mucous Membranes Moist, Normal Exam - Neck Exam Neck exam: Positive for: Normal Inspection - Respiratory Exam Respiratory Exam: Clear to Auscultation Bilateral, NORMAL BREATHING PATTERN - Cardiovascular Exam Cardiovascular Exam: Bradycardia, +S1, +S2 - GI/Abdominal Exam GI & Abdominal Exam: Distended, Normal Bowel Sounds, Soft - Extremities Exam Extremities exam: Positive for: normal inspection. Negative for: calf tenderness - Back Exam Back exam: NORMAL INSPECTION - Neurological Exam Neurological exam: Alert, Oriented x3 - Psychiatric Exam Psychiatric exam: Normal Affect, Normal Mood - Skin Skin Exam: Dry, Intact, Warm Results - Vital Signs Recent Vital Signs: Last Vital Signs Temp 97.8 F 01/17/18 00:44 Pulse 43 L 01/17/18 00:44 Resp 18 01/17/18 00:44 BP 174/79 H 01/17/18 00:44 Pulse Ox 98 01/17/18 00:44 - Labs Result Diagrams: 01/16/18 20:00 01/16/18 20:00 Labs: Laboratory Results - last 24 hr 01/16/18 01/16/18 01/16/18 20:00 20:00 20:00 WBC 7.7 D RBC 4.05 Hgb 12.1 Hct 37.1 MCV 91.6 MCH 29.9 MCHC 32.6 RDW 12.6 Plt Count 256 MPV 10.1 PT 11.1 INR 0.97 APTT 27.1 Sodium 138 Potassium 4.1 Chloride 106 Carbon Dioxide 23 Anion Gap 14 BUN 14 Creatinine 0.5 L Est GFR ( Amer) > 60 Est GFR (Non-Af Amer) > 60 Random Glucose 102 Calcium 9.3 Total Bilirubin 0.3 AST 26 ALT 27 Alkaline Phosphatase 66 Lactate Dehydrogenase 414 Total Creatine Kinase 75 Troponin I < 0.01 Total Protein 8.3 Albumin 4.3 Globulin 4.0 Albumin/Globulin Ratio 1.1 Lipase 110 Assessment & Plan - Assessment and Plan (Free Text) Assessment: 62 y/o F with PMHx of HTN, Gastritis admitted to [facility] for gastroenteritis. CT abdomen demonstrates jejunitis, with infectious/inflammatory etiologies considered. Pt was started on empiric coverage with metronidazole and cef triaxone. Pt admitted to observation Plan: Gasteroenteritis Likely secondary to viral origin Continue metronidazole and rocephin Start NS@100 mL/hr IV Toradol prn pain Zofran prn nausea CLD, advance as tolerated f/u FOBT f/u stool cultures/lactoferrin/ova & parasites Hypertension Continue home enalapril GI/DVT ppx: Protonix/SCD Case seen, examined and discussed with attending physician, Dr. Nam <Bruce Nam - Last Filed: 01/18/18 01:58> Results - Vital Signs Recent Vital Signs: Last Vital Signs Temp 97.8 F 01/17/18 02:55 Pulse 40 L 01/17/18 09:56 Resp 20 01/17/18 05:14 BP 125/65 01/17/18 09:56 Pulse Ox 98 01/17/18 03:45 - Labs Result Diagrams: 01/17/18 07:00 01/17/18 07:00 Labs: Laboratory Results - last 24 hr 01/16/18 01/16/18 01/16/18 20:00 20:00 20:00 WBC 7.7 D RBC 4.05 Hgb 12.1 Hct 37.1 MCV 91.6 MCH 29.9 MCHC 32.6 RDW 12.6 Plt Count 256 MPV 10.1 Gran % Lymph % (Auto) Johnson % (Auto) Eos % (Auto) Baso % (Auto) Gran # Lymph # (Auto) Johnson # (Auto) Eos # (Auto) Baso # (Auto) PT 11.1 INR 0.97 APTT 27.1 Sodium 138 Potassium 4.1 Chloride 106 Carbon Dioxide 23 Anion Gap 14 BUN 14 Creatinine 0.5 L Est GFR ( Amer) > 60 Est GFR (Non-Af Amer) > 60 Random Glucose 102 Calcium 9.3 Phosphorus Magnesium Total Bilirubin 0.3 AST 26 ALT 27 Alkaline Phosphatase 66 Lactate Dehydrogenase 414 Total Creatine Kinase 75 Troponin I < 0.01 Total Protein 8.3 Albumin 4.3 Globulin 4.0 Albumin/Globulin Ratio 1.1 Lipase 110 01/17/18 01/17/18 07:00 07:00 WBC 6.5 RBC 3.74 Hgb 11.0 L Hct 34.4 L MCV 92.0 MCH 29.4 MCHC 32.0 RDW 12.9 Plt Count 244 MPV 10.1 Gran % 43.1 L Lymph % (Auto) 42.9 H Johnson % (Auto) 10.8 H Eos % (Auto) 2.9 Baso % (Auto) 0.3 Gran # 2.81 Lymph # (Auto) 2.8 Johnson # (Auto) 0.7 H Eos # (Auto) 0.2 Baso # (Auto) 0.02 PT INR APTT Sodium 140 Potassium 4.2 Chloride 110 H Carbon Dioxide 24 Anion Gap 10 BUN 12 Creatinine 0.5 L Est GFR ( Amer) > 60 Est GFR (Non-Af Amer) > 60 Random Glucose 96 Calcium 8.7 Phosphorus 3.6 Magnesium 1.7 Total Bilirubin 0.2 AST 27 ALT 17 Alkaline Phosphatase 53 Lactate Dehydrogenase Total Creatine Kinase Troponin I Total Protein 7.1 Albumin 3.5 Globulin 3.6 Albumin/Globulin Ratio 1.0 L Lipase Attending/Attestation - Attestation I have personally seen and examined this patient.: Yes I have fully participated in the care of the patient.: Yes I have reviewed all pertinent clinical information: Yes
[2018-01-17] MEDS ORDERED: Sodium Chloride 0.9% 1,000 ML IV SCH (01:45)
[2018-01-17 03:53] VITALS: O2SAT 98
[2018-01-17 05:17] VITALS: PULSE 40; RESP 20
[2018-01-17 07:25] LABS: BASO # 0.02 K/mm3 (0.0-2.0); BASO % 0.3 % (0.0-3.0); EOS # 0.2 (0.0-0.7); EOS % 2.9 % (1.5-5.0); GRAN # 2.81 (1.4-6.5); GRAN % 43.1 % (50.0-68.0); LYMPH # 2.8 (1.2-3.4); LYMPH % 42.9 % (22.0-35.0); MEAN CORPUSCULAR HEMOGLOBIN 29.4 pg (25.0-35.0); MEAN PLATELET VOLUME 10.1 fl (7.0-11.0); MONO # 0.7 (0.1-0.6); MONO % 10.8 % (1.0-6.0); RBC 3.74 10^6/uL (3.5-6.1); RED CELL DISTRIBUTION WIDTH 12.9 % (11.5-14.5); WHITE BLOOD COUNT 6.5 10^3/ul (4.5-11.0)
[2018-01-17 07:46] LABS: ALBUMIN 3.5 g/dL (3.0-4.8); ALT/SGPT 17 U/L (7-56); AST/SGOT 27 U/L (14-36); BLOOD UREA NITROGEN 12 mg/dL (7-21); CALCIUM 8.7 mg/dL (8.4-10.5); GFR NON-AFRICAN AMERICAN > 60
--- NOTE | 2018-01-17 08:01 | RAD ---
Date of service: 01/16/2018 HISTORY: abdominal pain COMPARISON: 09/13/2017 FINDINGS: LUNGS: No active pulmonary disease. PLEURA: No significant pleural effusion identified, no pneumothorax apparent. CARDIOVASCULAR: Normal. OSSEOUS STRUCTURES: No significant abnormalities. VISUALIZED UPPER ABDOMEN: Normal. OTHER FINDINGS: None. IMPRESSION: No active disease.
--- NOTE | 2018-01-17 09:59 | CT ---
Date of service: 01/16/2018 PROCEDURE: CT Abdomen and Pelvis with contrast HISTORY: Abdominal pain COMPARISON: 10/30/2017. TECHNIQUE: CT scan of the abdomen and pelvis was performed after administration of intravenous contrast. Oral contrast was not administered. Coronal and sagittal reformatted images were obtained. Contrast dose: 100 mL Omnipaque 350 Radiation dose: Total exam DLP = 786.56 mGy-cm. This CT exam was performed using one or more of the following dose reduction techniques: Automated exposure control, adjustment of the mA and/or kV according to patient size, and/or use of iterative reconstruction technique. FINDINGS: LOWER THORAX: There is dependent atelectasis in the lung bases. LIVER: Normal in size with homogeneous enhancement. No gross lesion or ductal dilatation. GALLBLADDER AND BILE DUCTS: No calcified gallstones. PANCREAS: Normal in size with homogeneous enhancement. No gross lesion or ductal dilatation. SPLEEN: Normal in size and appearance. ADRENALS: No discrete nodule. KIDNEYS AND URETERS: Normal in size with homogeneous enhancement. No hydronephrosis. No solid mass. VASCULATURE: Unremarkable. No aortic aneurysm. BOWEL: There is mild dilatation of fluid-filled mid and distal small bowel loops. The proximal small bowel loops are normal in caliber. There is moderate amount of stool in the colon. There is sigmoid diverticulosis without CT evidence for acute diverticulitis. APPENDIX: Normal appendix. PERITONEUM: No free fluid. No free air. LYMPH NODES: No enlarged lymph nodes. BLADDER: Well distended and normal in appearance. REPRODUCTIVE: The uterus is normal in size . BONES: No acute fracture. OTHER FINDINGS: None. IMPRESSION: Mild dilatation of fluid-filled mid and distal small bowel loops may represent nonspecific enteritis. No evidence for bowel obstruction. Mild sigmoid diverticulosis without CT evidence for acute diverticulitis. No other significant interval change. A preliminary report was provided by [employer].
[2018-01-17 10:00] VITALS: BP 125/65
[2018-01-17] MEDS ORDERED: Methocarbamol 500 MG Tab PO SCH (10:00)
--- NOTE | 2018-01-17 10:10 | US ---
Date of service: 01/16/2018 HISTORY: pain COMPARISON: None. TECHNIQUE: Grayscale imaging was performed. FINDINGS: LIVER: Measures 16.0 cm in length. Normal echogenicity of the liver parenchyma. No mass. No intrahepatic bile duct dilatation. GALLBLADDER: There are no gallstones, wall thickening or pericholecystic fluid. The sonographic Mendoza's sign is negative. COMMON BILE DUCT: Measures 4.1 mm. No stones. No dilatation. PANCREAS: Normal in size and appearance. No mass. No ductal dilatation. RIGHT KIDNEY: Measures 11.28 cm in length. Normal echogenicity. No calculus, mass, or hydronephrosis. AORTA: No aneurysmal dilatation. IVC: Unremarkable. OTHER FINDINGS: None . IMPRESSION: No cholelithiasis or biliary dilatation. Diffuse increased echogenicity in the liver may reflect hepatic steatosis however parenchymal infectious/ inflammatory etiologies cannot be entirely excluded. Clinical and laboratory correlation is advised. A preliminary report was provided by [employer].
--- NOTE | 2018-01-17 11:59 | CARD ---
APPROVED REPORT Date of service: 01/16/2018 EKG Measurement Heart [id number] <Conclusion> Sinus bradycardia Cannot rule out Anteroseptal infarct, age undetermined Abnormal ECG
--- NOTE | 2018-01-17 15:31 | CP.PCM.DIS ---
<Jeremy López - Last Filed: 01/17/18 15:28> Provider - Provider Date of Admission: 01/16/18 23:47 Attending physician: Laura Chacon MD Time Spent in preparation of Discharge (in minutes): 70 Hospital Course - Lab Results Lab Results: Most Recent Lab Values WBC 6.5 10^3/ul (4.5-11.0) 01/17/18 07:00 RBC 3.74 10^6/uL (3.5-6.1) 01/17/18 07:00 Hgb 11.0 g/dL (12.0-16.0) L 01/17/18 07:00 Hct 34.4 % (36.0-48.0) L 01/17/18 07:00 MCV 92.0 fl (80.0-105.0) 01/17/18 07:00 MCH 29.4 pg (25.0-35.0) 01/17/18 07:00 MCHC 32.0 g/dl (31.0-37.0) 01/17/18 07:00 RDW 12.9 % (11.5-14.5) 01/17/18 07:00 Plt Count 244 10^3/uL (120.0-450.0) 01/17/18 07:00 MPV 10.1 fl (7.0-11.0) 01/17/18 07:00 Gran % 43.1 % (50.0-68.0) L 01/17/18 07:00 Lymph % (Auto) 42.9 % (22.0-35.0) H 01/17/18 07:00 Leake % (Auto) 10.8 % (1.0-6.0) H 01/17/18 07:00 Eos % (Auto) 2.9 % (1.5-5.0) 01/17/18 07:00 Baso % (Auto) 0.3 % (0.0-3.0) 01/17/18 07:00 Gran # 2.81 (1.4-6.5) 01/17/18 07:00 Lymph # (Auto) 2.8 (1.2-3.4) 01/17/18 07:00 Leake # (Auto) 0.7 (0.1-0.6) H 01/17/18 07:00 Eos # (Auto) 0.2 (0.0-0.7) 01/17/18 07:00 Baso # (Auto) 0.02 K/mm3 (0.0-2.0) 01/17/18 07:00 PT 11.1 SECONDS (9.4-12.5) 01/16/18 20:00 INR 0.97 01/16/18 20:00 APTT 27.1 Seconds (25.1-36.5) 01/16/18 20:00 Sodium 140 mmol/L (132-148) 01/17/18 07:00 Potassium 4.2 mmol/L (3.6-5.0) 01/17/18 07:00 Chloride 110 mmol/L (98-107) H 01/17/18 07:00 Carbon Dioxide 24 mmol/L (21-33) 01/17/18 07:00 Anion Gap 10 (10-20) 01/17/18 07:00 BUN 12 mg/dL (7-21) 01/17/18 07:00 Creatinine 0.5 mg/dl (0.7-1.2) L 01/17/18 07:00 Est GFR ( Amer) > 60 01/17/18 07:00 Est GFR (Non-Af Amer) > 60 01/17/18 07:00 Random Glucose 96 mg/dL (70-110) 01/17/18 07:00 Calcium 8.7 mg/dL (8.4-10.5) 01/17/18 07:00 Phosphorus 3.6 mg/dL (2.5-4.5) 01/17/18 07:00 Magnesium 1.7 mg/dL (1.7-2.2) 01/17/18 07:00 Total Bilirubin 0.2 mg/dL (0.2-1.3) 01/17/18 07:00 AST 27 U/L (14-36) 01/17/18 07:00 ALT 17 U/L (7-56) 01/17/18 07:00 Alkaline Phosphatase 53 U/L (38-126) 01/17/18 07:00 Lactate Dehydrogenase 414 U/L (333-699) 01/16/18 20:00 Total Creatine Kinase 75 U/L (35-230) 01/16/18 20:00 Troponin I < 0.01 ng/mL 01/16/18 20:00 Total Protein 7.1 g/dL (5.8-8.3) 01/17/18 07:00 Albumin 3.5 g/dL (3.0-4.8) 01/17/18 07:00 Globulin 3.6 gm/dL 01/17/18 07:00 Albumin/Globulin Ratio 1.0 (1.1-1.8) L 01/17/18 07:00 Lipase 110 U/L (23-300) 01/16/18 20:00 - Hospital Course Hospital Course: Upon Admission: Patient is a 62 year old female with PMH of HTN, gastritis presented to the ER yesterday complaining of sharp, diffuse, mostly epigastric pain with associated non-bloody, non-mucinous black diarrhea that started 4 days ago. Patient denies having anything similar in the past. She had tried taking pepto-bismol and immodium for the diarrhea with no relief. 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 In the ED, patient was started on empiric coverage with metronidazole and ceftriaxone. Stool cultures, FOBT, lactoferrin and ova and parasite were ordered. Hospital Course: 62 year old female admitted for gastroenteritis. Upon admission, her vital signs were stable with no fever and leukocytosis. Patient was started on IV protonix, normal saline and liquid diet as tolerated. She also recieved Zofran and Toradol as needed for pain/nausea. Patient reported her diarrhea had completely resolved today and her abdominal pain had subsided. Patient tolerated her diet well. P atient denied any other complaints. Patient hemoglobin had dropped from 12.1 to 11 today, however, patient denies any dizziness, shortness of breath or chest pain upon standing or ambulating. Her orthostatics were also negative. Antibiotics were discontinued due to likely viral etiology as the patient was asymptomatic, afebrile and had no leukocytosis today. Discharge Plan: Patient was deemed stable for discharge. She was recommended to follow up with her PCP in one week to follow up on her hemoglobin level and return to the ED if her symptoms worsened. She was given protonix. She was advised to avoid Ibuprofen for pain. Patient understands plan above and and agrees. Discharge Exam - Head Exam Head Exam: ATRAUMATIC, NORMAL INSPECTION, NORMOCEPHALIC - Eye Exam Eye Exam: EOMI, Normal appearance Pupil Exam: NORMAL ACCOMODATION - ENT Exam ENT Exam: Mucous Membranes Moist - Respiratory Exam Respiratory Exam: Clear to PA & Lateral, NORMAL BREATHING PATTERN. absent: Chest Wall Tenderness, Decreased Breath Sounds - Cardiovascular Exam Cardiovascular Exam: REGULAR RHYTHM, +S1, +S2. absent: Systolic Murmur - GI/Abdominal Exam GI & Abdominal Exam: Normal Bowel Sounds, Soft, Tenderness. absent: Distended, Rigid - Extremities Exam Extremities exam: normal inspection - Neurological Exam Neurological exam: Alert, Oriented x3 - Psychiatric Exam Psychiatric exam: Normal Affect, Normal Mood Discharge Plan - Discharge Medications Prescriptions: Pantoprazole Sodium [Protonix] 20 mg PO BID #28 ect - Follow Up Plan Condition: STABLE Disposition: HOME/ ROUTINE Instructions: Acute Abdomen (Belly Pain), Adult (DC), Gastritis (DC), P neumococcal Polysaccharide Vaccine (23-Valent), Flu Vaccine Additional Instructions: Please follow up with your primary physician, Dr. Barksdale, within 3 to 5 days. Please take the prescribed medications as instructed and resume your home medications. Please avoid taking ibuprofen or other NSAIDs, as they may worsen your condition. Please return to the ED if your symptoms worsen. Referrals: Ying Daly DO [Doctor [facility]] - Curt Stone MD [Medical Doctor] - <Laura Chacon - Last Filed: 01/18/18 08:55> Provider - Provider Date of Admission: 01/16/18 23:47 Attending physician: Laura Chacon MD Hospital Course - Lab Results Lab Results: Micro Results 01/17/18 00:20 Blood Blood Culture - Preliminary NO GROWTH AFTER 24 HOURS 01/16/18 23:50 Blood Blood Culture - Preliminary NO GROWTH AFTER 24 HOURS Most Recent Lab Values WBC 6.5 10^3/ul (4.5-11.0) 01/17/18 07:00 RBC 3.74 10^6/uL (3.5-6.1) 01/17/18 07:00 Hgb 11.0 g/dL (12.0-16.0) L 01/17/18 07:00 Hct 34.4 % (36.0-48.0) L 01/17/18 07:00 MCV 92.0 fl (80.0-105.0) 01/17/18 07:00 MCH 29.4 pg (25.0-35.0) 01/17/18 07:00 MCHC 32.0 g/dl (31.0-37.0) 01/17/18 07:00 RDW 12.9 % (11.5-14.5) 01/17/18 07:00 Plt Count 244 10^3/uL (120.0-450.0) 01/17/18 07:00 MPV 10.1 fl (7.0-11.0) 01/17/18 07:00 Gran % 43.1 % (50.0-68.0) L 01/17/18 07:00 Lymph % (Auto) 42.9 % (22.0-35.0) H 01/17/18 07:00 Leake % (Auto) 10.8 % (1.0-6.0) H 01/17/18 07:00 Eos % (Auto) 2.9 % (1.5-5.0) 01/17/18 07:00 Baso % (Auto) 0.3 % (0.0-3.0) 01/17/18 07:00 Gran # 2.81 (1.4-6.5) 01/17/18 07:00 Lymph # (Auto) 2.8 (1.2-3.4) 01/17/18 07:00 Leake # (Auto) 0.7 (0.1-0.6) H 01/17/18 07:00 Eos # (Auto) 0.2 (0.0-0.7) 01/17/18 07:00 Baso # (Auto) 0.02 K/mm3 (0.0-2.0) 01/17/18 07:00 PT 11.1 SECONDS (9.4-12.5) 01/16/18 20:00 INR 0.97 01/16/18 20:00 APTT 27.1 Seconds (25.1-36.5) 01/16/18 20:00 Sodium 140 mmol/L (132-148) 01/17/18 07:00 Potassium 4.2 mmol/L (3.6-5.0) 01/17/18 07:00 Chloride 110 mmol/L (98-107) H 01/17/18 07:00 Carbon Dioxide 24 mmol/L (21-33) 01/17/18 07:00 Anion Gap 10 (10-20) 01/17/18 07:00 BUN 12 mg/dL (7-21) 01/17/18 07:00 Creatinine 0.5 mg/dl (0.7-1.2) L 01/17/18 07:00 Est GFR ( Amer) > 60 01/17/18 07:00 Est GFR (Non-Af Amer) > 60 01/17/18 07:00 Random Glucose 96 mg/dL (70-110) 01/17/18 07:00 Calcium 8.7 mg/dL (8.4-10.5) 01/17/18 07:00 Phosphorus 3.6 mg/dL (2.5-4.5) 01/17/18 07:00 Magnesium 1.7 mg/dL (1.7-2.2) 01/17/18 07:00 Total Bilirubin 0.2 mg/dL (0.2-1.3) 01/17/18 07:00 AST 27 U/L (14-36) 01/17/18 07:00 ALT 17 U/L (7-56) 01/17/18 07:00 Alkaline Phosphatase 53 U/L (38-126) 01/17/18 07:00 Lactate Dehydrogenase 414 U/L (333-699) 01/16/18 20:00 Total Creatine Kinase 75 U/L (35-230) 01/16/18 20:00 Troponin I < 0.01 ng/mL 01/16/18 20:00 Total Protein 7.1 g/dL (5.8-8.3) 01/17/18 07:00 Albumin 3.5 g/dL (3.0-4.8) 01/17/18 07:00 Globulin 3.6 gm/dL 01/17/18 07:00 Albumin/Globulin Ratio 1.0 (1.1-1.8) L 01/17/18 07:00 Lipase 110 U/L (23-300) 01/16/18 20:00 Attending/Attestation - Attestation I have personally seen and examined this patient.: Yes I have fully participated in the care of the patient.: Yes I have reviewed all pertinent clinical information, including history, physical exam and plan: Yes Notes (Text): 01/18/18 08:52 Medical record note made by the resident after discussion with my direction and input after the patient was personally seen and examined by me. I have reviewed the chart and agree that the record accurately reflects by personal performance of the history, physical exam, data review, and medical decision-making, in the course for the patient. I have also personally directed the plan of care. 62 F was admitted with viral gastroenteritis.Nausea. vomiting and diarrhea has resolved. Hemoglobin is stable.Patient does not has any orthostatic hypotension. Patient is ambulatory, tolerating diet. She has been advised not to use NSAID.She has been started on oral PPI She will be discharged home and will follow up with PCP. Management plan was discussed in detail with patient. Education was provided.
== END 2018-01-17 17:20 | disposition home or self-care (01) ==
LOC: ED 18:42 → ERH 23:47 → 5RNO 01-17 04:11
PROVIDERS: ADMIT Internal Medicine; ATTEND Internal Medicine
DX: A08.4 Viral intestinal infection, unspecified (principal); I10 Essential (primary) hypertension; H35.30 Unspecified macular degeneration; Z88.5 Allergy status to narcotic agent; Z87.891 Personal history of nicotine dependence
CPT/HCPCS: 36415; 71045; 74177; 76705; 80053; 82550; 83615; 83690; 83735; 84100; 84484; 85025; 85027; 85610; 85730; 87040; 93005; 96361; 96365; 96367; 96375; 96376; 99285; C9113; G0378; J0696; J1885; J7030; Q9967

== ENCOUNTER 2018-04-01 10:41 | Observation (INO) | payer MEDICAID, OTHER ==
[2018-04-01 11:00] VITALS: BMI 31.2
[2018-04-01] MEDS ORDERED: Sodium Chloride 0.9% 1,000 ML IV STA (11:08)
[2018-04-01 11:21] LABS: BASO # 0.04 K/mm3 (0.0-2.0); BASO % 0.5 % (0.0-3.0); EOS # 0.2 (0.0-0.7); EOS % 2.5 % (1.5-5.0); GRAN # 4.92 (1.4-6.5); GRAN % 58.2 % (50.0-68.0); HEMOGLOBIN 12.8 g/dL (12.0-16.0); LYMPH # 2.6 (1.2-3.4); LYMPH % 30.4 % (22.0-35.0); MEAN CELL VOLUME 93.9 fl (80.0-105.0); MEAN CORPUSCULAR HEMOGLOBIN 30.3 pg (25.0-35.0); MEAN CORPUSCULAR HGB CONC 32.2 g/dl (31.0-37.0); MEAN PLATELET VOLUME 10.1 fl (7.0-11.0); MONO # 0.7 (0.1-0.6); MONO % 8.4 % (1.0-6.0); RBC 4.23 10^6/uL (3.5-6.1); RED CELL DISTRIBUTION WIDTH 12.5 % (11.5-14.5); WHITE BLOOD COUNT 8.5 10^3/uL (4.5-11.0)
[2018-04-01 11:34] LABS: ALBUMIN 4.3 g/dL (3.0-4.8); ALT/SGPT 17 U/L (7-56); AST/SGOT 27 U/L (14-36); BLOOD UREA NITROGEN 12 mg/dL (7-21); CALCIUM 9.2 mg/dL (8.4-10.5); GFR NON-AFRICAN AMERICAN > 60; LIPASE 161 U/L (23-300)
[2018-04-01 11:47] LABS: TROPONIN I < 0.01 ng/mL
--- NOTE | 2018-04-01 11:55 | ED PDOC ---
Arrival/HPI - General Chief Complaint: Abdominal Pain Time Seen by Provider: 04/01/18 10:57 Historian: Patient - History of Present Illness Narrative History of Present Illness (Text): 04/01/18 11:52 62-year-old female presents today with a sudden onset of severe epigastric and right sided abdominal pain wraps around to the right side of the back. Patient denies fevers or chills. Denies chest pain or shortness of breath. She denies pain with deep inspiration. Patient denies headaches dizziness or weakness. Patient describes the pain as sharp and stabbing and constant. Patient states the pain started suddenly around 9:30 AM. Patient denies diarrhea but states she's had nausea with one episode of vomiting while in the emergency room. No other complaints Past Medical History - Provider Review Nursing Documentation Reviewed: Yes - Travel History Have you recently traveled outside [place] w/in the past 3 mons?: No - Past History Past History: No Previous - Infectious Disease Hx of Infectious Diseases: None - Tetanus Immunization Tetanus Immunization: Unknown - Reproductive Menopause: Yes - Cardiac Hx Cardiac Disorders: Yes Hx Hypertension: Yes - Pulmonary Hx Respiratory Disorders: No - Neurological Hx Neurological Disorder: No - HEENT Hx Macular Degeneration: Yes - Renal Hx Renal Disorder: No - Endocrine/Metabolic Hx Endocrine Disorders: No - Hematological/Oncological Hx Blood Disorders: No - Integumentary Hx Dermatological Disorder: No - Musculoskeletal/Rheumatological Hx Musculoskeletal Disorders: Yes Hx Back Pain: Yes - Gastrointestinal Hx Gastrointestinal Disorders: No - Genitourinary/Gynecological Hx Genitourinary Disorders: Yes Hx Urinary Tract Infection: Yes - Psychiatric Hx Psychophysiologic Disorder: No Hx Substance Use: No - Surgical History Hx Section: Yes Hx Orthopedic Surgery: Yes (L KNEE) - Anesthesia Hx Anesthesia: Yes Hx Anesthesia Reactions: No Hx Malignant Hyperthermia: No - Suicidal Assessment Feels Threatened In Home Enviroment: No Family/Social History - Physician Review Nursing Documentation Reviewed: Yes Family/Social History: Unknown Family HX Smoking Status: Former Smoker Hx Alcohol Use: Yes Hx Substance Use: No Hx Substance Use Treatment: No Allergies/Home Meds Allergies/Adverse Reactions: Allergies morphine Allergy (Verified 01/16/18 19:30) RASH oxycodone HCl [From Percocet] Allergy (Verified 01/16/18 19:30) REDNESS oxycodone Adverse Reaction (Verified 01/16/18 19:30) NAUSEA Home Medications: Home Meds Medication Instructions Recorded Confirmed Enalapril Maleate [Vasotec] 10 mg PO DAILY 09/05/17 04/01/18 Review of Systems - Review of Systems Constitutional: absent: Fatigue, Fevers Respiratory: absent: SOB, Cough Cardiovascular: absent: Chest Pain, Palpitations Gastrointestinal: Abdominal Pain, Nausea, Vomiting. absent: Constipation, Diarrhea Genitourinary Female: absent: Dysuria, Frequency, Hematuria Musculoskeletal: Back Pain ( right sided abdominal pain radiating to right upper back.). absent: Arthralgias, Neck Pain Skin: absent: Rash, Pruritis Neurological: absent: Headache, Dizziness Psychiatric: absent: Anxiety, Depression Physical Exam Vital Signs Reviewed: Yes Vital Signs Temp Pulse Resp BP Pulse Ox 04/01/18 10:42 98.1 F 53 L 20 164/74 H 98 Temperature: Afebrile Blood Pressure: Hypertensive Pulse: Regular Respiratory Rate: Normal Appearance: Positive for: Well-Appearing, Non-Toxic, Comfortable Pain Distress: None Mental Status: Positive for: Alert and Oriented X 3 - Systems Exam Head: Present: Atraumatic Mouth: Present: Moist Mucous Membranes Neck: Present: Normal Range of Motion Respiratory/Chest: Present: Clear to Auscultation, Good Air Exchange, Tender to Palpation. No: Respiratory Distress, Accessory Muscle Use, Wheezes, Decreased Breath Sounds, Tachypneic Cardiovascular: Present: Regular Rate and Rhythm, Normal S1, S2. No: Murmurs Abdomen: Present: Tenderness (right upper quadrant, epigastric left upper quadrant tenderness), Guarding. No: Distention, Peritoneal Signs, Rebound Back: Present: Normal Inspection, CVA Tenderness. No: Midline Tenderness Upper Extremity: Present: Normal ROM Lower Extremity: Present: Normal ROM Neurological: Present: GCS=15, Speech Normal Skin: Present: Warm, Dry, Normal Color. No: Rashes Psychiatric: Present: Alert, Oriented x 3 Medical Decision Making ED Course and Treatment: 04/01/18 12:11 Patient is nontoxic well appearing with stable vital signs presenting with severe right sided upper abdominal pain CBC : wnl CMP : wnl Lipase: 161 Urinalysis: (Pending) Ultrasound: FINDINGS: LIVER: Measures 17.7 cm in sagittal dimension and appears within normal limits of size, shape, and echotexture. No focal hepatic mass identified. The main portal vein appears patent with normal directional flow. No intrahepatic bile duct dilatation. GALLBLADDER: Gallstones. Gallbladder distension. No gallbladder wall thickening. Negative sonographic Mendoza's sign as assessed by the [facility] chemist. COMMON BILE DUCT: Measures 4 mm. PANCREAS: Not well visualized. RIGHT KIDNEY: Measures 11.4 x 4.9 x 4.6cm. No obstructing calculus or hydronephrosis identified. LEFT KIDNEY: Measures 11.5 x 5.9 x 5.2cm. No obstructing calculus or hydronephrosis identified. SPLEEN: Measures approximately 7.6 cm. AORTA: Limited views appear unremarkable. IVC: Limited views appear unremarkable. OTHER FINDINGS: None. IMPRESSION: Gallstones. Gallbladder distension. No gallbladder wall thickening. Negative sonographic Mendoza's sign as assessed by the [facility] chemist. Correlate clinically. CAT scan: FINDINGS: LOWER THORAX: Mild bibasilar atelectasis. No visible pleural effusion or pneumothorax. Small hiatal hernia/distal esophageal wall thickening. LIVER: Hepatomegaly. GALLBLADDER AND BILE DUCTS: Gallbladder appears distended. PANCREAS: Unremarkable. SPLEEN: Unremarkable. ADRENALS: Unremarkable. KIDNEYS AND URETERS: The kidneys enhance symmetrically. No hydronephrosis or obstructing calculus identified. VASCULATURE: No aortic aneurysm. No atherosclerotic calcification or mural plaque present. BOWEL: Stomach is nondistended. Lack of oral contrast limits evaluation for bowel pathology. Bowel loops appear within normal limits of caliber without evidence of obstruction. Diverticulosis without CT evidence of acute diverticulitis. APPENDIX: The appendix appears within normal limits of caliber. No secondary signs of acute appendicitis. PERITONEUM: No significant free fluid. No definite free air. LYMPH NODES: No bulky adenopathy identified. BLADDER: Mild thick-walled urinary bladder. REPRODUCTIVE: Uterus is present. BONES: Degenerative changes of the spine. Scoliosis. OTHER FINDINGS: None. IMPRESSION: Hepatomegaly. Diverticulosis without CT evidence of acute diverticulitis. Mildly thick-walled urinary bladder. Recommend correlation with urinalysis. Distended gallbladder. Additional findings as above. Patient reassessment: pt with continued pain; tylenol added. pt c/o continued nausea. zofran added. urine still pending. Discussed all results with patient in depth case discussed with dr. maxwell accepts obs admission for intractable abdominal pain with distended GB ruq tenderness. pending UA. consider Hida. Impression: Abdominal pain, gallstones, admit med/surg observational status pt admitted. still pending UA. pt unable to void in ER. - Lab Interpretations Lab Results: 04/01/18 11:10 04/01/18 11:10 Lab Results 04/01/18 11:10: WBC 8.5, RBC 4.23, Hgb 12.8, Hct 39.7, MCV 93.9, MCH 30.3, MCHC 32.2, RDW 12.5, Plt Count 273, MPV 10.1, Gran % 58.2, Lymph % (Auto) 30.4, Casey % (Auto) 8.4 H, Eos % (Auto) 2.5, Baso % (Auto) 0.5, Gran # 4.92, Lymph # (Auto) 2.6, Casey # (Auto) 0.7 H, Eos # (Auto) 0.2, Baso # (Auto) 0.04 04/01/18 11:10: Sodium 141, Potassium 4.3, Chloride 109 H, Carbon Dioxide 22, Anion Gap 15, BUN 12, Creatinine 0.4 L, Est GFR ( Amer) > 60, Est GFR (Non-Af Amer) > 60, Random Glucose 126 H, Calcium 9.2, Total Bilirubin 0.3, AST 27, ALT 17, Alkaline Phosphatase 67, Lactate Dehydrogenase 457, Total Creatine Kinase 58, Troponin I < 0.01, Total Protein 8.5 H, Albumin 4.3, Globulin 4.2, Albumin/Globulin Ratio 1.0 L, Lipase 161 - RAD Interpretation Radiology Orders: 04/01/18 11:08 CHEST PORTABLE [RAD] Stat 04/01/18 11:26 ABDOMEN COMPLETE [US] Stat - Medication Orders Current Medication Orders: Sodium Chloride (Sodium Chloride 0.9%) 1,000 mls @ 999 mls/hr IV .Q1H1M STA Stop: 04/01/18 12:08 Last Admin: 04/01/18 11:15 Dose: 999 mls/hr eMAR Start Stop Document 04/01/18 11:15 EQ (Rec: 04/01/18 11:15 EQ [id number]) Intravenous Solution Start Date 04/01/18 Start Time 11:15 Discontinued Medications Ketorolac Tromethamine (Toradol) 30 mg IVP STAT STA Stop: 04/01/18 11:26 Last Admin: 04/01/18 11:46 Dose: 30 mg MAR Pain Assessment Document 04/01/18 11:46 EQ (Rec: 04/01/18 11:46 EQ [id number] Pain Reassessment Is this a pain reassessment? No Sleep Is patient sleeping during reassessment? No Presence of Pain Presence of Pain Yes IVP Administration Document 04/01/18 11:46 EQ (Rec: 04/01/18 11:46 EQ [id number]) Charges for Administration # of IVP Administrations 1 Ondansetron HCl (Zofran Inj) 4 mg IVP STAT STA Stop: 04/01/18 11:09 Last Admin: 04/01/18 11:15 Dose: 4 mg IVP Administration Document 04/01/18 11:15 EQ (Rec: 04/01/18 11:16 EQ [id number]) Charges for Administration # of IVP Administrations 1 Pantoprazole Sodium (Protonix Inj) 40 mg IVP STAT STA Stop: 04/01/18 11:26 Last Admin: 04/01/18 11:46 Dose: 40 mg IVP Administration Document 04/01/18 11:46 EQ (Rec: 04/01/18 11:46 EQ [id number]) Charges for Administration # of IVP Administrations 1 Disposition/Present on Arrival - Present on Arrival Any Indicators Present on Arrival: No History of DVT/PE: No History of Uncontrolled Diabetes: No Urinary Catheter: No History of Decub. Ulcer: No History Surgical Site Infection Following: None - Disposition Have Diagnosis and Disposition been Completed?: Yes Diagnosis: Intractable abdominal pain, Gallstones Disposition: HOSPITALIZED Disposition Time: 13:38 Patient Plan: Observation Patient Problems: Current Active Problems Problem Status Onset Gallstones Acute Intractable abdominal pain Acute Condition: FAIR
--- NOTE | 2018-04-01 12:01 | RAD ---
HISTORY: abd pain COMPARISON: Chest x-ray performed 01/16/18 TECHNIQUE: Chest, one view. FINDINGS: LUNGS: No focal consolidation. Please note that chest x-ray has limited sensitivity for the detection of pulmonary masses. PLEURA: No significant pleural effusion identified. No definite pneumothorax . CARDIOVASCULAR: Borderline cardiomegaly. Ectatic aorta. Atherosclerotic calcifications of the aorta. OSSEOUS STRUCTURES: No acute osseous abnormality identified. VISUALIZED UPPER ABDOMEN: Unremarkable. OTHER FINDINGS: None. IMPRESSION: No focal consolidation. Borderline cardiomegaly.
[2018-04-01] MEDS ORDERED: Iohexol 350 MG/100 ML VIAL ONE (12:47)
--- NOTE | 2018-04-01 13:20 | US ---
HISTORY: upper abdominal pain COMPARISON: CT abdomen and pelvis with IV contrast performed 01/16/18 TECHNIQUE: Sonographic evaluation of the abdomen. FINDINGS: LIVER: Measures 17.7 cm in sagittal dimension and appears within normal limits of size, shape, and echotexture. No focal hepatic mass identified. The main portal vein appears patent with normal directional flow. No intrahepatic bile duct dilatation. GALLBLADDER: Gallstones. Gallbladder distension. No gallbladder wall thickening. Negative sonographic Mendoza's sign as assessed by the poke in. COMMON BILE DUCT: Measures 4 mm. PANCREAS: Not well visualized. RIGHT KIDNEY: Measures 11.4 x 4.9 x 4.6cm. No obstructing calculus or hydronephrosis identified. LEFT KIDNEY: Measures 11.5 x 5.9 x 5.2cm. No obstructing calculus or hydronephrosis identified. SPLEEN: Measures approximately 7.6 cm. AORTA: Limited views appear unremarkable. IVC: Limited views appear unremarkable. OTHER FINDINGS: None. IMPRESSION: Gallstones. Gallbladder distension. No gallbladder wall thickening. Negative sonographic Mendoza's sign as assessed by the poke in. Correlate clinically.
--- NOTE | 2018-04-01 13:27 | CT ---
Date of service: 04/01/2018 PROCEDURE: CT Abdomen and Pelvis with contrast HISTORY: abd pain COMPARISON: Abdominal ultrasound performed 04/01/18, CT of the abdomen and pelvis with contrast performed 01/16/18 TECHNIQUE: Contrast dose: 100 mL Omnipaque 350 Radiation dose: Total exam DLP = 881.9 mGy-cm. This CT exam was performed using one or more of the following dose reduction techniques: Automated exposure control, adjustment of the mA and/or kV according to patient size, and/or use of iterative reconstruction technique. FINDINGS: LOWER THORAX: Mild bibasilar atelectasis. No visible pleural effusion or pneumothorax. Small hiatal hernia/distal esophageal wall thickening. LIVER: Hepatomegaly. GALLBLADDER AND BILE DUCTS: Gallbladder appears distended. PANCREAS: Unremarkable. SPLEEN: Unremarkable. ADRENALS: Unremarkable. KIDNEYS AND URETERS: The kidneys enhance symmetrically. No hydronephrosis or obstructing calculus identified. VASCULATURE: No aortic aneurysm. No atherosclerotic calcification or mural plaque present. BOWEL: Stomach is nondistended. Lack of oral contrast limits evaluation for bowel pathology. Bowel loops appear within normal limits of caliber without evidence of obstruction. Diverticulosis without CT evidence of acute diverticulitis. APPENDIX: The appendix appears within normal limits of caliber. No secondary signs of acute appendicitis. PERITONEUM: No significant free fluid. No definite free air. LYMPH NODES: No bulky adenopathy identified. BLADDER: Mild thick-walled urinary bladder. REPRODUCTIVE: Uterus is present. BONES: Degenerative changes of the spine. Scoliosis. OTHER FINDINGS: None. IMPRESSION: Hepatomegaly. Diverticulosis without CT evidence of acute diverticulitis. Mildly thick-walled urinary bladder. Recommend correlation with urinalysis. Distended gallbladder. Additional findings as above.
[2018-04-01] MEDS: Sodium Chloride 0.45% 1,000 ML IV SCH (14:38)
--- NOTE | 2018-04-01 14:51 | CP.PCM.HP ---
<Lorne Sotelo - Last Filed: 04/01/18 16:44> History of Present Illness - History of Present Illness History of Present Illness: Medicine History and Physical for Hospitalist Service Lorne Sotelo DO PGY-1 This is a 62 y o female with PMhx HTN who presented today c/o sudden onset of severe epigastric and RUQ abd pain that radiated to the back. States that she was making coffee at home when the abd pain started at 9:30 am today. States she did not take any OTC pain medications at home for symptoms because the pain was so severe, so she decided to come to the ED to be evaluated. Describes pain as sharp, stabbing, and constant. Rated it 10/10 when coming into the ED, rates it 7/10 currently after pain meds in the ED. Reports this happening one time in the past 2 months prior to today, but pt also had associated diarrhea at the time. Denies any diarrhea currently since onset of symptoms. Reports 1 episode of vomiting yellowish liquid this am, non-bloody. Denies having any PO liquids or solid foods this am. Denies trying new foods. Denies hx of sick contacts. Denies fever, chills, chest pain, sob, n/v/d/c, abd pain, urinary complaints, or other symptoms. PMhx: HTN PSurgHx: C/s 32 y ago; L knee surgery Allergies: Morphine and Percocet Home meds: Enalapril 10 mg daily Fam hx: Mom from CVA; dad unknown Soc hx: former smoker quit 7 months ago (smoked 1 cigarette/day for 3 years); admits to social EtOH use; denies illicit drug use PMD: Dr. Daly Present on Admission - Present on Admission Any Indicators Present on Admission: No History of DVT/PE: No History of Uncontrolled Diabetes: No Urinary Catheter: No Decubitus Ulcer Present: No History Surgical Site Infection Following: None Review of Systems - Constitutional Constitutional: As Per HPI. absent: Anorexia, Chills, Fever - Cardiovascular Cardiovascular: absent: Chest Pain, Diaphoresis, Dyspnea, Leg Edema - Respiratory Respiratory: absent: Cough, Dyspnea, Wheezing - Gastrointestinal Gastrointestinal: Abdominal Pain, Nausea, Vomiting. absent: Change in Stool Character, Constipation, Diarrhea - Genitourinary Genitourinary: absent: Change in Urinary Stream, Difficulty Urinating, Dysuria, Hematuria Past Patient History - Infectious Disease Hx of Infectious Diseases: None - Tetanus Immunizations Tetanus Immunization: Unknown - Past Social History Smoking Status: Former Smoker - CARDIAC Hx Cardiac Disorders: Yes Hx Hypertension: Yes - PULMONARY Hx Respiratory Disorders: No - NEUROLOGICAL Hx Neurological Disorder: No - HEENT Hx Macular Degeneration: Yes - RENAL Hx Chronic Kidney Disease: No - ENDOCRINE/METABOLIC Hx Endocrine Disorders: No - HEMATOLOGICAL/ONCOLOGICAL Hx Blood Disorders: No - INTEGUMENTARY Hx Dermatological Problems: No - MUSCULOSKELETAL/RHEUMATOLOGICAL Hx Musculoskeletal Disorders: Yes Hx Back Pain: Yes - GASTROINTESTINAL Hx Gastrointestinal Disorders: No - GENITOURINARY/GYNECOLOGICAL Hx Genitourinary Disorders: Yes Hx Urinary Tract Infection: Yes - PSYCHIATRIC Hx Psychophysiologic Disorder: No Hx Substance Use: No - SURGICAL HISTORY Hx Section: Yes Hx Orthopedic Surgery: Yes (L KNEE) - ANESTHESIA Hx Anesthesia: Yes Hx Anesthesia Reactions: No Hx Malignant Hyperthermia: No Meds Allergies/Adverse Reactions: Allergies Allergy/AdvReac Type Severity Reaction Status Date / Time morphine Allergy RASH Verified 01/16/18 19:30 oxycodone HCl [From Percocet] Allergy REDNESS Verified 01/16/18 19:30 oxycodone AdvReac NAUSEA Verified 01/16/18 19:30 Physical Exam - Constitutional Appears: Non-toxic, No Acute Distress - Head Exam Head Exam: ATRAUMATIC, NORMOCEPHALIC - Eye Exam Eye Exam: EOMI, Normal appearance, PERRL - ENT Exam ENT Exam: Mucous Membranes Moist - Respiratory Exam Respiratory Exam: Clear to Auscultation Bilateral, NORMAL BREATHING PATTERN. absent: Rales, Rhonchi, Wheezes - Cardiovascular Exam Cardiovascular Exam: REGULAR RHYTHM, +S1, +S2. absent: Gallop, Rubs, Systolic Murmur - GI/Abdominal Exam GI & Abdominal Exam: Guarding, Normal Bowel Sounds, Soft. absent: Distended, Rebound Additional comments: Tenderness to palpation in epigastric region and RUQ - Extremities Exam Extremities exam: Positive for: full ROM, normal capillary refill, normal inspection, pedal pulses present. Negative for: pedal edema - Back Exam Back exam: FULL ROM, NORMAL INSPECTION. absent: tenderness - Neurological Exam Neurological exam: Alert, CN II-XII Intact, Normal Gait, Oriented x3, Reflexes Normal - Psychiatric Exam Psychiatric exam: Normal Affect, Normal Mood - Skin Skin Exam: Dry, Intact, Normal Color, Warm Results - Vital Signs Recent Vital Signs: Last Vital Signs Temp 98.1 F 04/01/18 10:42 Pulse 53 L 04/01/18 10:42 Resp 20 04/01/18 10:42 BP 164/74 H 04/01/18 10:42 Pulse Ox 98 04/01/18 10:42 - Labs Result Diagrams: 04/01/18 11:10 04/01/18 11:10 Labs: Laboratory Results - last 24 hr 04/01/18 04/01/18 11:10 11:10 WBC 8.5 RBC 4.23 Hgb 12.8 Hct 39.7 MCV 93.9 MCH 30.3 MCHC 32.2 RDW 12.5 Plt Count 273 MPV 10.1 Gran % 58.2 Lymph % (Auto) 30.4 [place] % (Auto) 8.4 H Eos % (Auto) 2.5 Baso % (Auto) 0.5 Gran # 4.92 Lymph # (Auto) 2.6 [place] # (Auto) 0.7 H Eos # (Auto) 0.2 Baso # (Auto) 0.04 Sodium 141 Potassium 4.3 Chloride 109 H Carbon Dioxide 22 Anion Gap 15 BUN 12 Creatinine 0.4 L Est GFR ( Amer) > 60 Est GFR (Non-Af Amer) > 60 Random Glucose 126 H Calcium 9.2 Total Bilirubin 0.3 AST 27 ALT 17 Alkaline Phosphatase 67 Lactate Dehydrogenase 457 Total Creatine Kinase 58 Troponin I < 0.01 Total Protein 8.5 H Albumin 4.3 Globulin 4.2 Albumin/Globulin Ratio 1.0 L Lipase 161 Assessment & Plan - Assessment and Plan (Free Text) Assessment: 62 y o female PMhx HTN presenting with abdominal pain. R/o biliary coli c/cholelithiasis. Plan: Abdominal pain No leukocytosis on admission Hypertensive 164/74, bradycardic at 53 bpm, otherwise vitals stable, afebrile Abd/pelvis CT: hepatomegaly, diverticulosis, mildly thick walled urinary bladder, distended GB Abd U/s: gallstone, GB distension, no GB wall thickening, negative sonographic Mendoza's sign CXR: borderline cardiomegaly Pt made NPO IVF @ 75 cc/hr Pain control Zofran prn Protonic daily General Surgery consulted (Dr. Bone), recs appreciated HIDA scan ordered Hx HTN BP on admission 164/74, may be elevated 2/2 to pain Pt reports compliance with home med regimen C/w home med Enalapril 10 mg daily DVT ppx: SCDs GI ppx: Protonix Pt seen, examined with, and plan discussed with Dr. Roach, attending physician. Lorne Sotelo DO PGY-1, Border Inspector Pager #[phone] <Nickie Roach R - Last Filed: 04/02/18 12:00> Results - Vital Signs Recent Vital Signs: Last Vital Signs Temp 98.2 F 04/02/18 08:26 Pulse 80 04/02/18 08:26 Resp 20 04/02/18 08:26 BP 140/82 04/02/18 08:26 Pulse Ox 97 04/02/18 08:26 - Labs Result Diagrams: 04/02/18 07:00 04/02/18 07:00 Labs: Laboratory Results - last 24 hr 04/02/18 04/02/18 07:00 07:00 WBC 7.2 RBC 4.09 Hgb 12.0 Hct 38.1 MCV 93.2 MCH 29.3 MCHC 31.5 RDW 12.5 Plt Count 276 MPV 10.3 Gran % 56.9 Lymph % (Auto) 32.5 [place] % (Auto) 6.6 H Eos % (Auto) 3.3 Baso % (Auto) 0.7 Gran # 4.08 Lymph # (Auto) 2.3 [place] # (Auto) 0.5 Eos # (Auto) 0.2 Baso # (Auto) 0.05 Sodium 140 Potassium 3.7 Chloride 110 H Carbon Dioxide 26 Anion Gap 8 L BUN 9 Creatinine 0.5 L Est GFR ( Amer) > 60 Est GFR (Non-Af Amer) > 60 Random Glucose 116 H Calcium 8.5 Phosphorus 3.2 Magnesium 1.7 Total Bilirubin 0.3 AST 27 ALT 23 Alkaline Phosphatase 58 Total Protein 7.3 Albumin 3.4 Globulin 3.8 Albumin/Globulin Ratio 0.9 L Attending/Attestation - Attestation I have personally seen and examined this patient.: Yes I have fully participated in the care of the patient.: Yes I have reviewed all pertinent clinical information: Yes Notes (Text): Patient seen and examined by me with resident at 2:30PM on 04/01/18. Case including HPI, physical exam, and assessment and plan discussed with resident. Agree with above with following additions/corrections. Patient is 62-year-old female past medical history significant for attention and abdominal pain that presented to the emergency room with abdominal pain. Patient states that the pain started this morning. She states she was not doing anything in particular. Patient states she did not have anything to eat or drink since last night. She states that pain started in the middle of her abdomen and radiated up to the epigastric region, to the right upper quadrant and around to the back. Patient states that the pain is a 10 out of 10 on a scale 1-10, 10 being the worst pain she has ever felt. The pain is sharp and constant. Patient states that pain medication in the emergency room brought the pain down to a 7 out of 10. Patient states that she also had nausea and 1 episode of nonbilious, nonbloody emesis. No associated diarrhea or constipation. No fevers or chills. She denies any dysuria or burning with urination. No urinary frequency or urgency. No chest pain or shortness of breath. No headaches or dizziness. No change in vision. Patient did not try anything for this pain at home. She states that "the pain was so bad, that I came straight to the emergency room." 12 point review of systems reviewed by me. Please see above HPI, all other systems negative. Family History: Mother and a stroke. Patient states she did not know her father. Physical exam: General: Awake and alert lying in bed in no acute distress HEENT: Normocephalic, atraumatic. Extraocular muscles intact, pupils equal and reactive, no scleral icterus. Oropharynx is pink moist. Neck is supple. Hearing grossly intact. Ears and nose externally unremarkable. Cardiovascular: Normal rhythm. Normal S1 and S2. No murmurs, rubs, or gallops appreciated Pulmonary: Normal respiratory effort. No rhonchi, rales, or wheezing appreciated Gastrointestinal: Soft, nondistended. Positive epigastric tenderness. Positive right upper quadrant tenderness with deep palpation. Negative Mendoza's sign. Positive bowel sounds all 4 quadrants. No guarding. Globular abdomen. Musculoskeletal: Moves all extremities. No edema appreciated. No calf tenderness. No CVA tenderness. Central nervous system: AAO 3. CN2-12 grossly intact. Dermatologic: Skin warm and dry. Assessment and plan: Patient is 62-year-old female past medical history significant for attention and abdominal pain that presented to the emergency room with abdominal pain. 1. Abdominal pain. Epigastric and right upper quadrant pain. Possible biliary colic. CT abdomen and pelvis per radiologist showed hepatomegaly; diverticulosis without CT evidence of acute diverticulitis; mildly thick-walled urinary bladder; distended gallbladder. Abdominal ultrasound per radiologist showed gallstones, gallbladder distention, no gallbladder wall thickening. Surgery consulted, follow-up recommendations. Follow up HIDA scan. Make NPO for now. Placed on Zofran as needed. Placed on IV fluids. 2. Nausea and vomiting. Zofran as needed 3. Hypertension. Home enalapril held for now as patient is NPO. Monitor blood pressure and add IV medications if needed. 4. GI/DVT prophylaxis. Protonix/SCDs 5. Patient is a full code. Case was discussed in detail with patient regarding current diagnosis and treatment plan. All questions answered.
--- NOTE | 2018-04-01 15:16 | CARD ---
APPROVED REPORT Date of service: 04/01/2018 EKG Measurement Heart [id number] <Conclusion> Sinus bradycardia Otherwise normal ECG
--- NOTE | 2018-04-01 21:22 | CP.PCM.CON ---
History of Present Illness - History of Present Illness History of Present Illness: Surgery Consult Note- Dr. Bone Reason for consult: r/o acute cholecystitis 62F pmhx significant for HTN presents to [facility] ED w/ severe epgiastric abdominal pain radiating to RUQ. Last meal was chicken the night before. Pain started suddenly this AM while preparing coffee. During encounter pain has significantly improved. Associated w/ some nausea and loose stool, no vomiting. Surgery was consulted for evaluation of abdominal pain r/o cholecystitis 12 pt ROS conducted, negative otherwise stated above PMH: HTN PSH: 32; L knee surgery ALL: Morphine and Percocet Socialhx: former smoker quit 7 months ago (smoked 1 cigarette/day for 3 years); admits to social EtOH use; denies illicit drug use FH: Mom from CVA; dad unknown Review of Systems - Review of Systems All systems: reviewed and no additional remarkable complaints except - Constitutional Constitutional: As Per HPI Past Patient History - Infectious Disease Hx of Infectious Diseases: None - Tetanus Immunizations Tetanus Immunization: Unknown - Past Social History Smoking Status: Former Smoker - CARDIAC Hx Cardiac Disorders: Yes Hx Hypertension: Yes - PULMONARY Hx Respiratory Disorders: No - NEUROLOGICAL Hx Neurological Disorder: No - HEENT Hx Macular Degeneration: Yes - RENAL Hx Chronic Kidney Disease: No - ENDOCRINE/METABOLIC Hx Endocrine Disorders: No - HEMATOLOGICAL/ONCOLOGICAL Hx Blood Disorders: No - INTEGUMENTARY Hx Dermatological Problems: No - MUSCULOSKELETAL/RHEUMATOLOGICAL Hx Musculoskeletal Disorders: Yes Hx Back Pain: Yes - GASTROINTESTINAL Hx Gastrointestinal Disorders: No - GENITOURINARY/GYNECOLOGICAL Hx Genitourinary Disorders: Yes Hx Urinary Tract Infection: Yes - PSYCHIATRIC Hx Psychophysiologic Disorder: No Hx Substance Use: No - SURGICAL HISTORY Hx Section: Yes Hx Orthopedic Surgery: Yes (L KNEE) - ANESTHESIA Hx Anesthesia: Yes Hx Anesthesia Reactions: No Hx Malignant Hyperthermia: No Meds Allergies/Adverse Reactions: Allergies Allergy/AdvReac Type Severity Reaction Status Date / Time morphine Allergy RASH Verified 01/16/18 19:30 oxycodone HCl [From Percocet] Allergy REDNESS Verified 01/16/18 19:30 oxycodone AdvReac NAUSEA Verified 01/16/18 19:30 - Medications Medications: Current Medications Sodium Chloride (Sodium Chloride 0.45%) 1,000 mls @ 75 mls/hr IV .[id number] ROYA Last Admin: 04/01/18 14:38 Dose: 75 mls/hr Ondansetron HCl (Zofran Inj) 4 mg IVP Q6H PRN PRN Reason: Nausea/Vomiting Pantoprazole Sodium (Protonix Inj) 40 mg IVP DAILY [facility] Physical Exam - Constitutional Appears: Non-toxic, No Acute Distress - Head Exam Head Exam: ATRAUMATIC - Eye Exam Eye Exam: EOMI. absent: Scleral icterus - ENT Exam ENT Exam: Mucous Membranes Moist - Respiratory Exam Respiratory Exam: NORMAL BREATHING PATTERN. absent: Accessory Muscle Use, Respiratory Distress - Cardiovascular Exam Cardiovascular Exam: +S1, +S2. absent: Bradycardia, Tachycardia - GI/Abdominal Exam GI & Abdominal Exam: Soft. absent: Distended, Firm, Guarding, Hernia, Rebound, Rigid, Tenderness Additional comments: mild tenderness mid-epigastrum - Neurological Exam Neurological exam: Alert, Oriented x3 - Psychiatric Exam Psychiatric exam: Normal Affect - Skin Skin Exam: Intact, Warm Results - Vital Signs Recent Vital Signs: Last Vital Signs Temp 98.1 F 04/01/18 10:42 Pulse 52 L 04/01/18 14:40 Resp 18 04/01/18 14:40 BP 144/63 04/01/18 14:40 Pulse Ox 97 04/01/18 14:40 - Labs Result Diagrams: 04/01/18 11:10 04/01/18 11:10 Labs: Laboratory Results - last 24 hr 04/01/18 04/01/18 11:10 11:10 WBC 8.5 RBC 4.23 Hgb 12.8 Hct 39.7 MCV 93.9 MCH 30.3 MCHC 32.2 RDW 12.5 Plt Count 273 MPV 10.1 Gran % 58.2 Lymph % (Auto) 30.4 [place] % (Auto) 8.4 H Eos % (Auto) 2.5 Baso % (Auto) 0.5 Gran # 4.92 Lymph # (Auto) 2.6 [place] # (Auto) 0.7 H Eos # (Auto) 0.2 Baso # (Auto) 0.04 Sodium 141 Potassium 4.3 Chloride 109 H Carbon Dioxide 22 Anion Gap 15 BUN 12 Creatinine 0.4 L Est GFR ( Amer) > 60 Est GFR (Non-Af Amer) > 60 Random Glucose 126 H Calcium 9.2 Total Bilirubin 0.3 AST 27 ALT 17 Alkaline Phosphatase 67 Lactate Dehydrogenase 457 Total Creatine Kinase 58 Troponin I < 0.01 Total Protein 8.5 H Albumin 4.3 Globulin 4.2 Albumin/Globulin Ratio 1.0 L Lipase 161 Assessment & Plan - Assessment and Plan (Free Text) Assessment: 62F w/ abdominal pain likely enteritis, no evidence of acute cholecystitis US: distended GB, CBD and GBW WNL, no pericholecystic fluid Plan: - diet as tolerated - abx - IVF hydration - no acute surgical intervention indicated at this time - can schedule for an elective cholecystectomy as outpatient - discussed w/ Dr. Bone [facility]
[2018-04-01] MEDS ORDERED: Pneumococcal 23-Valent Vaccine IM ONE (21:59)
[2018-04-01] MEDS ORDERED: Influenza Vaccine 60 mcg/0.5 mL SYR (4YR UP) IM ONE (21:59)
[2018-04-02] MEDS: Sodium Chloride 0.45% 1,000 ML IV SCH (05:53)
[2018-04-02 07:39] LABS: BASO # 0.05 K/mm3 (0.0-2.0); BASO % 0.7 % (0.0-3.0); EOS # 0.2 (0.0-0.7); EOS % 3.3 % (1.5-5.0); GRAN # 4.08 (1.4-6.5); GRAN % 56.9 % (50.0-68.0); LYMPH # 2.3 (1.2-3.4); LYMPH % 32.5 % (22.0-35.0); MEAN CELL VOLUME 93.2 fl (80.0-105.0); MEAN CORPUSCULAR HEMOGLOBIN 29.3 pg (25.0-35.0); MEAN CORPUSCULAR HGB CONC 31.5 g/dl (31.0-37.0); MEAN PLATELET VOLUME 10.3 fl (7.0-11.0); MONO # 0.5 (0.1-0.6); MONO % 6.6 % (1.0-6.0); RBC 4.09 10^6/uL (3.5-6.1); RED CELL DISTRIBUTION WIDTH 12.5 % (11.5-14.5); WHITE BLOOD COUNT 7.2 10^3/uL (4.5-11.0)
[2018-04-02 08:24] LABS: ALB/GLOB RATIO 0.9 (1.1-1.8); ALBUMIN 3.4 g/dL (3.0-4.8); ALT/SGPT 23 U/L (7-56); AST/SGOT 27 U/L (14-36); BLOOD UREA NITROGEN 9 mg/dL (7-21); CALCIUM 8.5 mg/dL (8.4-10.5); GFR NON-AFRICAN AMERICAN > 60
--- NOTE | 2018-04-02 09:44 | CP.PCM.PN ---
Subjective - Date & Time of Evaluation Date of Evaluation: 04/02/18 Time of Evaluation: 07:05 - Subjective Subjective: General Surgery progress note for Dr. Bone Patient seen and examined this am at bedside. DANIELO per nursing,. Pt is resting comfortably and has no complaints. She otherwise denies BARTHOLOMEW, SOB, CP, F/C, N/V and states that her abdominal pain is well controlled and improving. She states that she has had fewer and less voluminous Diarrhea overnight as well. Objective - Vital Signs/Intake and Output Vital Signs (last 24 hours): Temp Pulse Resp BP Pulse Ox 98.2 F 80 20 140/82 97 04/02/18 08:26 04/02/18 08:26 04/02/18 08:26 04/02/18 08:26 04/02/18 08:26 - Medications Medications: Current Medications Sodium Chloride (Sodium Chloride 0.45%) 1,000 mls @ 75 mls/hr IV .[id number] ROYA Last Admin: 04/02/18 05:53 Dose: 75 mls/hr Ondansetron HCl (Zofran Inj) 4 mg IVP Q6H PRN PRN Reason: Nausea/Vomiting Pantoprazole Sodium (Protonix Inj) 40 mg IVP DAILY ROYA - Labs Labs: 04/02/18 07:00 04/02/18 07:00 - Constitutional Appears: Well, Non-toxic, No Acute Distress - Head Exam Head Exam: ATRAUMATIC, NORMOCEPHALIC - Eye Exam Eye Exam: EOMI - ENT Exam ENT Exam: Mucous Membranes Moist - Respiratory Exam Respiratory Exam: NORMAL BREATHING PATTERN - Cardiovascular Exam Cardiovascular Exam: REGULAR RHYTHM - GI/Abdominal Exam GI & Abdominal Exam: Soft. absent: Distended, Guarding, Tenderness - Extremities Exam Extremities Exam: absent: Calf Tenderness, Pedal Edema - Neurological Exam Neurological Exam: Alert, Awake, Oriented x3 - Psychiatric Exam Psychiatric exam: Normal Affect, Normal Mood - Skin Skin Exam: Dry, Intact, Normal Color, Warm Assessment and Plan - Assessment and Plan (Free Text) Assessment: 62F w/ abdominal pain likely enteritis, no evidence of acute cholecystitis US: distended GB, CBD and GBW WNL, no pericholecystic fluid HIDA: no filling defect, GB visualized within 15 min Plan: - diet as tolerated - abx - IVF hydration - no acute surgical intervention indicated at this time - can schedule for an elective cholecystectomy as outpatient - clear for D/c from surgical standpoint - discussed w/ Dr. Bone surgical attending Sammie Dubois, PGY 1
--- NOTE | 2018-04-02 17:30 | MRI ---
MRCP Indication: r/o cbd obstruction Technique: Multiplanar, multisequence MR images of the abdomen were obtained, including heavily T2 weighted MRCP images of the biliary system. Rotating maximum intensity projection images of the biliary system were generated. A total of 507 images were submitted for review. Comparison: CT abdomen pelvis with IV contrast performed 04/01/18 Findings: Hepatomegaly. Gallbladder distension. Cholelithiasis. There is no intrahepatic biliary ductal dilatation. The common bile duct appears within normal limits in caliber and tapers distally. The pancreatic duct appears within normal limits of caliber. No filling defects are seen in the common bile duct or pancreatic duct. The partially imaged noncontrast adrenal glands, kidneys, spleen, and pancreas appear grossly unremarkable. No bulky abdominal lymphadenopathy is seen. No ascites. No acute osseous abnormality is detected. Degenerative changes of the spine. Impression: Gallbladder distension. Cholelithiasis. No filling defects seen within the common bile duct which appears within normal limits of caliber. Hepatomegaly.
--- NOTE | 2018-04-02 18:54 | CP.PCM.PN ---
Subjective - Date & Time of Evaluation Date of Evaluation: 04/02/18 Time of Evaluation: 11:00 - Subjective Subjective: Medicine Progress Note for Hospitalist Service, Dr. Estefani Sotelo, DO PGY-1 Pt seen and examined at bedside this am, states abd pain is improving. Reports "soreness" but otherwise denies any acute complaints. Denies fever or chills. Denies nausea/vomiting. Denies constipation/diarrhea. 12-point ROS obtained, ot herwise neg as per pt. No acute events reported overnight. Objective - Vital Signs/Intake and Output Vital Signs (last 24 hours): Temp Pulse Resp BP Pulse Ox 98.2 F 80 20 140/82 97 04/02/18 08:26 04/02/18 08:26 04/02/18 08:26 04/02/18 08:26 04/02/18 08:26 - Medications Medications: Current Medications Ondansetron HCl (Zofran Inj) 4 mg IVP Q6H PRN PRN Reason: Nausea/Vomiting Pantoprazole Sodium (Protonix Inj) 40 mg IVP DAILY ROYA Last Admin: 04/02/18 11:40 Dose: 40 mg - Labs Labs: 04/02/18 07:00 04/02/18 07:00 - Constitutional Appears: Non-toxic, No Acute Distress - Head Exam Head Exam: ATRAUMATIC, NORMOCEPHALIC - Eye Exam Eye Exam: EOMI, Normal appearance, PERRL - ENT Exam ENT Exam: Mucous Membranes Moist - Neck Exam Neck Exam: Full ROM, Normal Inspection. absent: Tenderness - Respiratory Exam Respiratory Exam: Clear to Ausculation Bilateral, NORMAL BREATHING PATTERN. absent: Rales, Rhonchi, Wheezes - Cardiovascular Exam Cardiovascular Exam: REGULAR RHYTHM, +S1, +S2. absent: Gallop, Rubs, Murmur - GI/Abdominal Exam GI & Abdominal Exam: Soft, Tenderness (Mild tenderness to palpation in epigastric region), Normal Bowel Sounds. absent: Distended, Guarding, Organomegaly - Extremities Exam Extremities Exam: Full ROM, Normal Capillary Refill, Normal Inspection. absent: Calf Tenderness, Pedal Edema - Neurological Exam Neurological Exam: Alert, Awake, CN II-XII Intact, Normal Gait, Oriented x3 - Skin Skin Exam: Dry, Intact, Normal Color, Warm Assessment and Plan - Assessment and Plan (Free Text) Assessment: 62 y o female PMhx HTN presenting with abdominal pain. Plan: Abdominal pain No leukocytosis Abd/pelvis CT: hepatomegaly, diverticulosis, mildly thick walled urinary bladder, distended GB Abd U/s: gallstone, GB distension, no GB wall thickening, negative sonographic Mendoza's sign CXR: borderline cardiomegaly On regular diet, but noting some soreness after eating dinner today; will con tinue to monitor overnight IVF d/c'd Pain control Zofran prn Protonix daily General Surgery consulted (Dr. Bone), recs appreciated. Signed off of case, no acute surgical intervention required at this time. Can follow-up outpatient for elective cholecystectomy. HIDA scan: prelim read demonstrated no evidence of cholecystitis, possible distal CBD obstruction MRCP: GB distension, cholelithasis, no filling defects seen within the CBD which appears within normal limits of caliber Hx HTN C/w home med Enalapril 10 mg daily DVT ppx: SCDs GI ppx: Protonix Pt seen, examined with, and plan discussed with Dr. Jara, attending physician. Lorne Sotelo DO PGY-1, Director Supply Chain Pager #[phone]
[2018-04-03 05:34] VITALS: BP 138/67; PULSE 59; RESP 20; TEMP 97.8; O2SAT 98
[2018-04-03 07:15] LABS: BASO # 0.04 K/mm3 (0.0-2.0); BASO % 0.5 % (0.0-3.0); EOS # 0.2 (0.0-0.7); EOS % 2.3 % (1.5-5.0); GRAN # 4.66 (1.4-6.5); GRAN % 59.2 % (50.0-68.0); HEMOGLOBIN 11.4 g/dL (12.0-16.0); LYMPH # 2.5 (1.2-3.4); LYMPH % 31.3 % (22.0-35.0); MEAN CELL VOLUME 93.8 fl (80.0-105.0); MEAN CORPUSCULAR HEMOGLOBIN 29.4 pg (25.0-35.0); MEAN CORPUSCULAR HGB CONC 31.3 g/dl (31.0-37.0); MEAN PLATELET VOLUME 10.1 fl (7.0-11.0); MONO # 0.5 (0.1-0.6); MONO % 6.7 % (1.0-6.0); RBC 3.88 10^6/uL (3.5-6.1); RED CELL DISTRIBUTION WIDTH 12.5 % (11.5-14.5); WHITE BLOOD COUNT 7.9 10^3/uL (4.5-11.0)
[2018-04-03 07:23] LABS: ALBUMIN 3.7 g/dL (3.0-4.8); ALT/SGPT 19 U/L (7-56); AST/SGOT 19 U/L (14-36); BLOOD UREA NITROGEN 13 mg/dL (7-21); CALCIUM 8.9 mg/dL (8.4-10.5); GFR NON-AFRICAN AMERICAN > 60
--- NOTE | 2018-04-03 10:30 | NM ---
Date of service: 04/01/2018 PROCEDURE: Nuclear Medicine Hepatobiliary Scan HISTORY: abdominal pain, u/s gallstones- r/o cholecystitis COMPARISON: Abdomen ultrasound and abdomen pelvis CT examinations 04/01/2018. MRCP 04/02/2018. TECHNIQUE: 6.06 mCi of technetium 99m Mebrofenin was administered intravenously. Planar images of the abdomen were obtained at 5 min intervals to 60 mins. Delayed images were also obtained. FINDINGS: LIVER: Timely but heterogeneous uptake. COMMON BILE DUCT: Not well seen. GALLBLADDER: identified at 15-30 mins. SMALL BOWEL: Identified at 360 mins. IMPRESSION: No nuclear evidence of cystic obstruction. Given delay in appearance of the small bowel, evaluation of the common BD is nonspecific. The common bile duct does not appear dilated in prior subsequent MRCP exam or preliminary CT 04/01/2018. Clinically correlate further. Preliminary report provided by Hien, 04/02/2018 12:41 a.m..
--- NOTE | 2018-04-03 11:16 | CP.PCM.DIS ---
<Lorne Sotelo - Last Filed: 04/03/18 14:48> Provider - Provider Date of Admission: 04/01/18 14:17 Attending physician: Nickie Roach DO Primary care physician: Ying Daly DO Consults: 04/01/18 14:53 Physician Consult Routine Comment: Consulting Provider: Pio Bone Consulting Physician: Pio Bone Reason for Consult: abd pain, distended gallbladder on CT Time Spent in preparation of Discharge (in minutes): 45 Diagnosis - Discharge Diagnosis (1) Biliary colic Status: Resolved Hospital Course - Lab Results Lab Results: Most Recent Lab Values WBC 7.9 10^3/uL (4.5-11.0) 04/03/18 07:00 RBC 3.88 10^6/uL (3.5-6.1) 04/03/18 07:00 Hgb 11.4 g/dL (12.0-16.0) L 04/03/18 07:00 Hct 36.4 % (36.0-48.0) 04/03/18 07:00 MCV 93.8 fl (80.0-105.0) 04/03/18 07:00 MCH 29.4 pg (25.0-35.0) 04/03/18 07:00 MCHC 31.3 g/dl (31.0-37.0) 04/03/18 07:00 RDW 12.5 % (11.5-14.5) 04/03/18 07:00 Plt Count 267 10^3/uL (120.0-450.0) 04/03/18 07:00 MPV 10.1 fl (7.0-11.0) 04/03/18 07:00 Gran % 59.2 % (50.0-68.0) 04/03/18 07:00 Lymph % (Auto) 31.3 % (22.0-35.0) 04/03/18 07:00 [place] % (Auto) 6.7 % (1.0-6.0) H 04/03/18 07:00 Eos % (Auto) 2.3 % (1.5-5.0) 04/03/18 07:00 Baso % (Auto) 0.5 % (0.0-3.0) 04/03/18 07:00 Gran # 4.66 (1.4-6.5) 04/03/18 07:00 Lymph # (Auto) 2.5 (1.2-3.4) 04/03/18 07:00 [place] # (Auto) 0.5 (0.1-0.6) 04/03/18 07:00 Eos # (Auto) 0.2 (0.0-0.7) 04/03/18 07:00 Baso # (Auto) 0.04 K/mm3 (0.0-2.0) 04/03/18 07:00 Sodium 141 mmol/L (132-148) 04/03/18 07:00 Potassium 4.3 mmol/L (3.6-5.0) 04/03/18 07:00 Chloride 109 mmol/L (98-107) H 04/03/18 07:00 Carbon Dioxide 27 mmol/L (21-33) 04/03/18 07:00 Anion Gap 9 (10-20) L 04/03/18 07:00 BUN 13 mg/dL (7-21) 04/03/18 07:00 Creatinine 0.5 mg/dl (0.7-1.2) L 04/03/18 07:00 Est GFR ( Amer) > 60 04/03/18 07:00 Est GFR (Non-Af Amer) > 60 04/03/18 07:00 Random Glucose 112 mg/dL (70-110) H 04/03/18 07:00 Calcium 8.9 mg/dL (8.4-10.5) 04/03/18 07:00 Phosphorus 3.2 mg/dL (2.5-4.5) 04/02/18 07:00 Magnesium 1.7 mg/dL (1.7-2.2) 04/02/18 07:00 Total Bilirubin 0.2 mg/dL (0.2-1.3) 04/03/18 07:00 AST 19 U/L (14-36) 04/03/18 07:00 ALT 19 U/L (7-56) 04/03/18 07:00 Alkaline Phosphatase 56 U/L (38-126) 04/03/18 07:00 Lactate Dehydrogenase 457 U/L (333-699) 04/01/18 11:10 Total Creatine Kinase 58 U/L (35-230) 04/01/18 11:10 Troponin I < 0.01 ng/mL 04/01/18 11:10 Total Protein 7.4 g/dL (5.8-8.3) 04/03/18 07:00 Albumin 3.7 g/dL (3.0-4.8) 04/03/18 07:00 Globulin 3.7 gm/dL 04/03/18 07:00 Albumin/Globulin Ratio 1.0 (1.1-1.8) L 04/03/18 07:00 Lipase 161 U/L (23-300) 04/01/18 11:10 - Hospital Course Hospital Course: HPI at time of admission: "62 y o female with PMhx HTN who presented today c/o sudden onset of severe epigastric and RUQ abd pain that radiated to the back. States that she was making coffee at home when the abd pain started at 9:30 am today. States she did not take any OTC pain medications at home for symptoms because the pain was so severe, so she decided to come to the ED to be evaluated. Describes pain as sharp, stabbing, and constant. Rated it 10/10 when coming into the ED, rates it 7/10 currently after pain meds in the ED. Reports this happening one time in the past 2 months prior to today, but pt also had associated diarrhea at the time. Denies any diarrhea currently since onset of symptoms. Reports 1 episode of vomiting yellowish liquid this am, non-bloody. Denies having any PO liquids or solid foods this am. Denies trying new foods. Denies hx of sick contacts. Denies fever, chills, chest pain, sob, n/v/d/c, abd pain, urinary complaints, or other symptoms." Hospital Course: Pertinent imaging: Abd/pelvis CT: hepatomegaly, diverticulosis, mildly thick walled urinary bladder, distended GB Abd U/s: gallstone, GB distension, no GB wall thickening, negative sonographic Mendoza's sign CXR: borderline cardiomegaly HIDA scan: no evidence of cholecystitis, possible distal CBD obstruction MRCP: GB distension, cholelithasis, no filling defects seen within the CBD which appears within normal limits of caliber Pt was admitted for abdominal pain. General Surgery was consulted (Dr. Bone), who evaluated the patient and recommended outpatient follow-up for elective cholecystectomy. Lab work-up was wnl. Pt's abdominal pain improved during admission and was able to tolerate PO diet without concerns. Abdominal pain was likely 2/2 to biliary colic, cholelithiasis. She was discharged to home in stable condition on 04/03/18, with instructions to follow up with her PMD (Dr. Daly) and Dr. Bone (Gen Surgery) outpatient within 1 week of discharge. Was given script of Protonix daily for 2 weeks therapy. Discharge Exam - Head Exam Head Exam: ATRAUMATIC, NORMOCEPHALIC - Eye Exam Eye Exam: EOMI, Normal appearance, PERRL - ENT Exam ENT Exam: Mucous Membranes Moist - Respiratory Exam Respiratory Exam: Clear to PA & Lateral, NORMAL BREATHING PATTERN, UNREMARKABLE - Cardiovascular Exam Cardiovascular Exam: REGULAR RHYTHM, +S1, +S2. absent: Gallop, Rubs, Systolic Murmur - GI/Abdominal Exam GI & Abdominal Exam: Normal Bowel Sounds, Soft, Unremarkable. absent: Distended, Guarding, Tenderness - Extremities Exam Extremities exam: full ROM, normal capillary refill, normal inspection, pedal pulses present - Neurological Exam Neurological exam: Alert, CN II-XII Intact, Normal Gait, Oriented x3 - Psychiatric Exam Psychiatric exam: Normal Affect, Normal Mood - Skin Skin Exam: Dry, Intact, Normal Color, Warm Discharge Plan - Discharge Medications Prescriptions: Pantoprazole Sodium [Protonix] 40 mg PO DAILY #14 ect - Follow Up Plan Condition: FAIR Disposition: HOME/ ROUTINE Instructions: Smoking: Not Just Harmful to Your Lungs and Heart, Flu, Adult (DC), Gallstones (DC), Abdominal Pain (ED) Additional Instructions: Please follow-up with your primary care physician (Dr. Daly) within 3-5 days of hospital discharge. Please follow-up with Dr. Bone (General Surgery) within 1 week of hospital discharge to discuss possible elective gallbladder surgery. Please resume your home medication as prescribed. Please take Protonix prescription daily in am prior to eating. Should your symptoms recur, please call your primary care physician or report to your nearest emergency department. Referrals: Ying Daly DO [Primary Care Provider] - Pio Bone MD [Staff Provider] - <Nickie Roach R - Last Filed: 04/04/18 12:14> Provider - Provider Date of Admission: 04/01/18 14:17 Attending physician: Nickie Roach DO Primary care physician: Ying Daly DO Consults: 04/01/18 14:53 Physician Consult Routine Comment: Consulting Provider: Pio Bone Consulting Physician: Pio Bone Reason for Consult: abd pain, distended gallbladder on CT Hospital Course - Lab Results Lab Results: Most Recent Lab Values WBC 7.9 10^3/uL (4.5-11.0) 04/03/18 07:00 RBC 3.88 10^6/uL (3.5-6.1) 04/03/18 07:00 Hgb 11.4 g/dL (12.0-16.0) L 04/03/18 07:00 Hct 36.4 % (36.0-48.0) 04/03/18 07:00 MCV 93.8 fl (80.0-105.0) 04/03/18 07:00 MCH 29.4 pg (25.0-35.0) 04/03/18 07:00 MCHC 31.3 g/dl (31.0-37.0) 04/03/18 07:00 RDW 12.5 % (11.5-14.5) 04/03/18 07:00 Plt Count 267 10^3/uL (120.0-450.0) 04/03/18 07:00 MPV 10.1 fl (7.0-11.0) 04/03/18 07:00 Gran % 59.2 % (50.0-68.0) 04/03/18 07:00 Lymph % (Auto) 31.3 % (22.0-35.0) 04/03/18 07:00 [place] % (Auto) 6.7 % (1.0-6.0) H 04/03/18 07:00 Eos % (Auto) 2.3 % (1.5-5.0) 04/03/18 07:00 Baso % (Auto) 0.5 % (0.0-3.0) 04/03/18 07:00 Gran # 4.66 (1.4-6.5) 04/03/18 07:00 Lymph # (Auto) 2.5 (1.2-3.4) 04/03/18 07:00 [place] # (Auto) 0.5 (0.1-0.6) 04/03/18 07:00 Eos # (Auto) 0.2 (0.0-0.7) 04/03/18 07:00 Baso # (Auto) 0.04 K/mm3 (0.0-2.0) 04/03/18 07:00 Sodium 141 mmol/L (132-148) 04/03/18 07:00 Potassium 4.3 mmol/L (3.6-5.0) 04/03/18 07:00 Chloride 109 mmol/L (98-107) H 04/03/18 07:00 Carbon Dioxide 27 mmol/L (21-33) 04/03/18 07:00 Anion Gap 9 (10-20) L 04/03/18 07:00 BUN 13 mg/dL (7-21) 04/03/18 07:00 Creatinine 0.5 mg/dl (0.7-1.2) L 04/03/18 07:00 Est GFR ( Amer) > 60 04/03/18 07:00 Est GFR (Non-Af Amer) > 60 04/03/18 07:00 Random Glucose 112 mg/dL (70-110) H 04/03/18 07:00 Calcium 8.9 mg/dL (8.4-10.5) 04/03/18 07:00 Phosphorus 3.2 mg/dL (2.5-4.5) 04/02/18 07:00 Magnesium 1.7 mg/dL (1.7-2.2) 04/02/18 07:00 Total Bilirubin 0.2 mg/dL (0.2-1.3) 04/03/18 07:00 AST 19 U/L (14-36) 04/03/18 07:00 ALT 19 U/L (7-56) 04/03/18 07:00 Alkaline Phosphatase 56 U/L (38-126) 04/03/18 07:00 Lactate Dehydrogenase 457 U/L (333-699) 04/01/18 11:10 Total Creatine Kinase 58 U/L (35-230) 04/01/18 11:10 Troponin I < 0.01 ng/mL 04/01/18 11:10 Total Protein 7.4 g/dL (5.8-8.3) 04/03/18 07:00 Albumin 3.7 g/dL (3.0-4.8) 04/03/18 07:00 Globulin 3.7 gm/dL 04/03/18 07:00 Albumin/Globulin Ratio 1.0 (1.1-1.8) L 04/03/18 07:00 Lipase 161 U/L (23-300) 04/01/18 11:10 Attending/Attestation - Attestation I have personally seen and examined this patient.: Yes I have fully participated in the care of the patient.: Yes I have reviewed all pertinent clinical information, including history, physical exam and plan: Yes Notes (Text): Patient seen and examined by me with resident 10:20AM on 04/03/18. Case including discharge plan discussed with resident. Agree with above with following additions/corrections. Patient is 62-year-old female past medical history significant for attention and abdominal pain that presented to the emergency room with abdominal pain. Please see H&P for full details. Patient was admitted with abdominal pain, epigastric pain, right upper quadrant pain, nausea, vomiting, and hypertension. CT abdomen and pelvis per radiologist showed hepatomegaly; diverticulosis without CT evidence of acute diverticulitis; mildly thick-walled urinary bladder; distended gallbladder. Abdominal ultrasound per radiologist showed gallstones, gallbladder distention, no gallbladder wall thickening. Surgery was consulted. HIDA scan per radiologist showed no nuclear evidence of cystic obstruction; given delay in the appearance of the small bowel, evaluation of the common bile duct is nonspecific; the common bile duct does not appear dilated and prior subsequent MRCP exam. MRCP per radiologist showed gallbladder distention, cholelithiasis, no filling defects seen within the common bile duct which appears within normal limits of caliber, hepatomegaly. Patient was seen by surgical team who recommended an elective cholecystectomy as an outpatient. Patient had no leukocytosis. Patient remained afebrile. LFTs were within normal limits. Lipase was 161. Nausea and vomiting resolved. Tolerating diet. Patient was cleared for discharge by surgical team. She was feeling much better and wanted to go home. Patient was discharged home. On day of discharge, patient states she is feeling much better. Patient has some "abdominal soreness" but no pain. No nausea or vomiting. Patient is tolerating diet. No diarrhea or constipation. No chest pain or palpitations. No shortness of breath. No headaches or dizziness. No change in vision. No fevers or chills. No dysuria. Physical exam: General: Awake and alert lying in bed in no acute distress HEENT: Normocephalic, atraumatic. Extraocular muscles intact, pupils equal and reactive, no scleral icterus. Oropharynx is pink moist. Neck is supple. Hearing grossly intact. Ears and nose externally unremarkable. Cardiovascular: Normal rhythm. Normal S1 and S2. No murmurs, rubs, or gallops appreciated Pulmonary: Normal respiratory effort. No rhonchi, rales, or wheezing appreciated Gastrointestinal: Soft, nondistended. Nontender. Positive bowel sounds all 4 quadrants. No guarding. Globular abdomen. Musculoskeletal: Moves all extremities. No edema appreciated. No calf tenderness. No CVA tenderness. Central nervous system: AAO 3. CN2-12 grossly intact. Dermatologic: Skin warm and dry. Please see chart for full details. Follow up instructions: Patient to follow-up with primary care doctor within 3-5 days. Patient to follow-up with surgeon Dr. Bone within 1 week of discharge. Patient to take all medications as prescribed. All instructions explained to patient in detail. Patient both understands and agrees to all instructions. Written instructions also given. Time spent in discharging the patient including chart review, medication reconciliation, discussion with the patient, pediatric medical assistant, consultants, and nursing staff was approximately 40 minutes.
== END 2018-04-03 14:20 | disposition home or self-care (01) ==
LOC: ED 10:41 → ERH 14:17 → 5RSO 15:14
PROVIDERS: ADMIT Hospitalist; ATTEND Hospitalist
DX: K80.20 Calculus of gallbladder without cholecystitis without obstruction (principal); I10 Essential (primary) hypertension; Z87.891 Personal history of nicotine dependence; H35.30 Unspecified macular degeneration; Z87.440 Personal history of urinary (tract) infections
CPT/HCPCS: 36415; 71045; 74177; 74181; 76700; 78227; 80053; 82550; 83615; 83690; 83735; 84100; 84484; 85025; 93005; 96374; 96375; 96376; 99283; A9537; C9113; G0378; J1885; J2060; J2405; J7030; Q9967

== ENCOUNTER 2018-05-04 00:40 | Emergency (ER) | payer MEDICAID ==
[2018-05-04 00:55] VITALS: BMI 33.2
[2018-05-04] MEDS ORDERED: Sodium Chloride 0.9% 1,000 ML IV STA (01:01)
--- NOTE | 2018-05-04 01:02 | ED PDOC ---
Arrival/HPI - General Chief Complaint: Abdominal Pain Time Seen by Provider: 05/04/18 00:56 Historian: Patient - History of Present Illness Narrative History of Present Illness (Text): 05/04/18 00:58 Evie Izaguirre is a 63 year old female, whose past medical history includes hypertension and cholelithiasis, who presents to the emergency department complaining of abdominal pain. Patient states she began experiencing RUQ abdominal pain with associated nausea and vomiting after eating chicken parmesan yesterday evening. Patient notes she has experienced similar symptoms last month and was admitted to the hospital for cholelithiasis. Patient denies any fever, chills, chest pain, shortness of breath, diarrhea, urinary symptoms, back pain, neck pain, headache, dizziness, or any other complaints. Symptom Onset: Gradual Symptom Course: Unchanged Activities at Onset: Light Context: Home Past Medical History - Provider Review Nursing Documentation Reviewed: Yes - Past History Past History: No Previous - Infectious Disease Hx of Infectious Diseases: None - Tetanus Immunization Tetanus Immunization: Unknown - Cardiac Hx Cardiac Disorders: Yes Hx Hypertension: Yes - Pulmonary Hx Respiratory Disorders: No - Neurological Hx Neurological Disorder: No - HEENT Hx HEENT Disorder: Yes (reading glasses) - Renal Hx Renal Disorder: No - Endocrine/Metabolic Hx Endocrine Disorders: No - Hematological/Oncological Hx Blood Disorders: No - Integumentary Hx Dermatological Disorder: No - Musculoskeletal/Rheumatological Hx Musculoskeletal Disorders: Yes Hx Back Pain: Yes Hx Falls: No - Gastrointestinal Hx Gastrointestinal Disorders: Yes (obese) - Genitourinary/Gynecological Hx Genitourinary Disorders: Yes Hx Urinary Tract Infection: Yes - Psychiatric Hx Psychophysiologic Disorder: No Hx Substance Use: No - Surgical History Hx Orthopedic Surgery: Yes (L KNEE sx torn ligament) - Anesthesia Hx Anesthesia: Yes Hx Anesthesia Reactions: No Hx Malignant Hyperthermia: No - Suicidal Assessment Feels Threatened In Home Enviroment: No Family/Social History - Physician Review Nursing Documentation Reviewed: Yes Family/Social History: Unknown Family HX Smoking Status: Former Smoker Hx Alcohol Use: No Hx Substance Use: No Hx Substance Use Treatment: No Allergies/Home Meds Allergies/Adverse Reactions: Allergies morphine Allergy (Verified 05/04/18 00:55) RASH oxycodone HCl [From Percocet] Allergy (Verified 05/04/18 00:55) REDNESS Penicillins Allergy (Verified 05/04/18 00:55) RASH oxycodone Adverse Reaction (Verified 05/04/18 00:55) NAUSEA Home Medications: Home Meds Medication Instructions Recorded Confirmed Enalapril Maleate [Vasotec] 10 mg PO DAILY 09/05/17 04/01/18 Review of Systems - Physician Review All systems were reviewed & negative as marked: Yes - Review of Systems Constitutional: Normal. absent: Fevers Eyes: Normal ENT: Normal Respiratory: Normal. absent: SOB, Cough Cardiovascular: Normal. absent: Chest Pain Gastrointestinal: Abdominal Pain, Nausea, Vomiting. absent: Diarrhea Genitourinary Female: Normal. absent: Dysuria, Frequency, Hematuria, Urine Output Changes Musculoskeletal: Normal. absent: Back Pain, Neck Pain Skin: Normal. absent: Rash Neurological: Normal. absent: Headache, Dizziness Endocrine: Normal Hemo/Lymphatic: Normal Psychiatric: Normal Physical Exam Vital Signs Reviewed: Yes Vital Signs Pulse Resp BP Pulse Ox 05/04/18 00:55 61 18 146/70 98 Temperature: Afebrile Blood Pressure: Normal Pulse: Regular Respiratory Rate: Normal Appearance: Positive for: Well-Appearing, Non-Toxic, Comfortable Pain Distress: None Mental Status: Positive for: Alert and Oriented X 3 - Systems Exam Head: Present: Atraumatic, Normocephalic Pupils: Present: PERRL Extroacular Muscles: Present: EOMI Conjunctiva: Present: Normal Mouth: Present: Moist Mucous Membranes Neck: Present: Normal Range of Motion Respiratory/Chest: Present: Clear to Auscultation, Good Air Exchange. No: Respiratory Distress, Accessory Muscle Use Cardiovascular: Present: Regular Rate and Rhythm, Normal S1, S2. No: Murmurs Abdomen: Present: Tenderness (RUQ tenderness). No: Distention, Peritoneal Signs Back: Present: Normal Inspection Upper Extremity: Present: Normal Inspection. No: Cyanosis, Edema Lower Extremity: Present: Normal Inspection. No: Edema Neurological: Present: GCS=15, CN II-XII Intact, Speech Normal Skin: Present: Warm, Dry, Normal Color. No: Rashes Psychiatric: Present: Alert, Oriented x 3, Normal Insight, Normal Concentration Medical Decision Making ED Course and Treatment: 05/04/18 00:58 Impression: 63 year old female complaining of RUQ pain, nausea, and vomiting. Plan: -- EKG -- Labs, cardiac enzymes, amylase, lipase, lactic acid, blood cultures -- UA -- IV fluids -- Zofran -- Toradol -- Pepcid -- Reassess and disposition Prior Visits: Notes and results from previous visits were reviewed. Progress Notes: Reviewed EKG, sinus bradycardia at 58 bpm. Sinus arrhythmia. No acute changes. 05/04/18 04:51 CT Abdomen and Pelvis: LUNG BASES: The lung bases appear clear. No pleural effusions are seen. LIVER: Unremarkable. GALLBLADDER AND BILE DUCTS: Gallbladder is distended with mildly thickened wall suspicious for chronic cholecystitis. Please also correlate with US/HIDA scan. Mild intrahepatic ductal dilatation. PANCREAS: Unremarkable. SPLEEN: Unremarkable. ADRENAL GLANDS: Unremarkable. KIDNEYS, URETERS, AND BLADDER: Bladder wall thickening is noted measuring up to 5 mm, consistent with cystitis. STOMACH AND BOWEL: There is diffuse diverticulosis noted involving descending and sigmoid colon. There is inflammatory stranding noted adjacent to the distal descending and proximal sigmoid colon compatible with acute diverticulitis. APPENDIX: No evidence of acute appendicitis on CT examination. PERITONEUM: No free fluid. No free air. LYMPH NODES: No lymphadenopathy is evident. REPRODUCTIVE: Unremarkable as visualized. VASCULATURE: No evidence of abdominal aortic aneurysm. BONES: No aggressive appearing osseous lesion. No acute osseous pathology evident. MISCELLANEOUS: Injection granuloma is noted in the left lower anterior subcutaneous abdominal wall. IMPRESSION: 1. Gallbladder is distended with mildly thickened wall suspicious for chronic cholecystitis. Mild intrahepatic ductal dilatation. Please also correlate with US/HIDA scan. 2. There is diffuse diverticulosis noted involving descending and sigmoid colon. There is inflammatory stranding noted adjacent to the distal descending and proximal sigmoid colon compatible with acute diverticulitis. 3. Bladder wall thickening is noted measuring up to 5 mm, consistent with cystitis. 4. Injection granuloma is noted in the left lower anterior subcutaneous abdominal wall. Electronically signed on May 04, 2018 4:39:09 AM EST by: Channing Sanford M.D., [place] Certified By [employer] Fellowship Trained MRI and CT Specialist 05/04/18 04:54 Case discussed with medical detail representative systems applications programming lead, who is aware and agrees with plan. 05/04/18 04:[address] Mathis, who is aware and agrees with plan. Accepts pt in to hospitalist service. - Lab Interpretations I have reviewed the lab results: Yes - RAD Interpretation Plant Ecologist: Radiologist - EKG Interpretation Interpreted by ED Physician: Yes Type: 12 lead EKG - Scribe Statement The provider has reviewed the documentation as recorded by the Rioibweston Mcgee Provider Scribe Attestation: All medical record entries made by the Scribe were at my direction and personally dictated by me. I have reviewed the chart and agree that the record accurately reflects my personal performance of the history, physical exam, medical decision making, and the department course for this patient. I have also personally directed, reviewed, and agree with the discharge instructions and disposition. Disposition/Present on Arrival - Present on Arrival Any Indicators Present on Arrival: No History of DVT/PE: No History of Uncontrolled Diabetes: No Urinary Catheter: No History of Decub. Ulcer: No History Surgical Site Infection Following: None - Disposition Have Diagnosis and Disposition been Completed?: Yes Diagnosis: Gallstones, Biliary colic, Intractable abdominal pain Disposition: AGAINST MEDICAL ADVICE Disposition Time: 04:50 Condition: GOOD Discharge Instructions (ExitCare): Abdominal Pain (ED) Referrals: Ying Daly DO [Primary Care Provider] -
[2018-05-04 02:01] LABS: INR 1.09; PARTIAL THROMBOPLASTIN TIME 28.4 Seconds (25.1-36.5); PROTHROMBIN TIME 12.4 SECONDS (9.4-12.5)
[2018-05-04 02:02] LABS: BASO # 0.04 K/mm3 (0.0-2.0); BASO % 0.4 % (0.0-3.0); EOS # 0.2 (0.0-0.7); EOS % 1.7 % (1.5-5.0); GRAN # 6.32 (1.4-6.5); GRAN % 61.4 % (50.0-68.0); LYMPH % 29.1 % (22.0-35.0); MEAN CORPUSCULAR HEMOGLOBIN 30.2 pg (25.0-35.0); MEAN CORPUSCULAR HGB CONC 32.4 g/dl (31.0-37.0); MEAN PLATELET VOLUME 10.4 fl (7.0-11.0); MONO # 0.8 (0.1-0.6); MONO % 7.4 % (1.0-6.0); RBC 3.98 10^6/uL (3.5-6.1); RED CELL DISTRIBUTION WIDTH 12.4 % (11.5-14.5); WHITE BLOOD COUNT 10.3 10^3/uL (4.5-11.0)
[2018-05-04 02:16] LABS: TROPONIN I < 0.01 ng/mL
[2018-05-04 02:17] LABS: ALBUMIN 4.4 g/dL (3.0-4.8); ALT/SGPT 49 U/L (7-56); AMYLASE 59 U/L (35-125); AST/SGOT 130 U/L (14-36); BLOOD UREA NITROGEN 20 mg/dL (7-21); CALCIUM 10.2 mg/dL (8.4-10.5); GFR NON-AFRICAN AMERICAN > 60; LIPASE 142 U/L (23-300)
[2018-05-04] MEDS ORDERED: Iohexol 350 MG/100 ML VIAL ONE (02:31)
[2018-05-04 02:34] LABS: URINE BILIRUBIN NEGATIVE (NEGATIVE); URINE BLOOD TRACE-INTACT (NEGATIVE); URINE GLUCOSE (UA) NEGATIVE (NEGATIVE); URINE LEUKOCYTE ESTERASE NEGATIVE Leu/uL (NEGATIVE); URINE PROTEIN NEGATIVE mg/dL (<30 mg/dL); URINE UROBILINOGEN 0.2 E.U./dL (<1 E.U./dL)
[2018-05-04 02:35] LABS: URINE APPEARANCE CLEAR (CLEAR); URINE COLOR YELLOW (YELLOW)
[2018-05-04 02:54] LABS: URINE BACTERIA OCC /hpf; URINE RBC 0 - 2 /hpf (0-2)
[2018-05-04] MEDS ORDERED: cefTRIAXone 1 gm 1 GM/100 ML BAG IVPB STA (04:54)
[2018-05-04] MEDS ORDERED: metroNIDAZOLE IV 500 mg/100 ml 500 MG/100 ML BAG IVPB STA (04:55)
--- NOTE | 2018-05-04 05:11 | CP.PCM.HP ---
History of Present Illness - History of Present Illness History of Present Illness: PGY-1 H&P for Dr. Mathis CC: Abdominal pain Patient is a 63 year old female, whose past medical history includes hypertension, bradycardia, and cholelithiasis, presenting with abdominal pain. Patient states she began experiencing RUQ abdominal pain after eating chicken parmesan yesterday evening. She describes her pain to be sharp, located mostly in the RUQ of the abdomen, radiating to the right back, and 10/10 in severity. Patient also admits to associated nausea and 5 episodes of non-bloody vomiting. Patient notes she has experienced similar symptoms last month and was admitted to the hospital for cholelithiasis. Patient states that she was medically managed without any surgical interventions. Patient denies any fever, chills, chest pain, shortness of breath, diarrhea, urinary symptoms, back pain, neck pain, headache, dizziness, or any other complaints. 12 system ROS reviewed and negative except mentioned in HPI. PMhx: HTN, bradycardia, and cholelithiasis PSurgHx: 32 years ago; L knee surgery Allergies: Morphine, oxycodone, PCN, Percocet Home meds: Enalapril 10 mg daily Fam hx: Mom from heart problems at age 87; dad unknown Soc hx: former smoker light smoker; admits to social EtOH use; denies illicit drug use PMD: Dr. Daly Present on Admission - Present on Admission Any Indicators Present on Admission: No History of DVT/PE: No History of Uncontrolled Diabetes: No Urinary Catheter: No Decubitus Ulcer Present: No Review of Systems - Review of Systems All systems: reviewed and no additional remarkable complaints except Past Patient History - Infectious Disease Hx of Infectious Diseases: None - Tetanus Immunizations Tetanus Immunization: Unknown - Past Social History Smoking Status: Former Smoker - CARDIAC Hx Cardiac Disorders: Yes Hx Hypertension: Yes - PULMONARY Hx Respiratory Disorders: No - NEUROLOGICAL Hx Neurological Disorder: No - HEENT Hx HEENT Problems: Yes (reading glasses) - RENAL Hx Chronic Kidney Disease: No - ENDOCRINE/METABOLIC Hx Endocrine Disorders: No - HEMATOLOGICAL/ONCOLOGICAL Hx Blood Disorders: No - INTEGUMENTARY Hx Dermatological Problems: No - MUSCULOSKELETAL/RHEUMATOLOGICAL Hx Musculoskeletal Disorders: Yes Hx Back Pain: Yes Hx Falls: No - GASTROINTESTINAL Hx Gastrointestinal Disorders: Yes (obese) - GENITOURINARY/GYNECOLOGICAL Hx Genitourinary Disorders: Yes Hx Urinary Tract Infection: Yes - PSYCHIATRIC Hx Psychophysiologic Disorder: No Hx Substance Use: No - SURGICAL HISTORY Hx Orthopedic Surgery: Yes (L KNEE sx torn ligament) - ANESTHESIA Hx Anesthesia: Yes Hx Anesthesia Reactions: No Hx Malignant Hyperthermia: No Meds Allergies/Adverse Reactions: Allergies Allergy/AdvReac Type Severity Reaction Status Date / Time morphine Allergy RASH Verified 05/04/18 00:55 oxycodone HCl [From Percocet] Allergy REDNESS Verified 05/04/18 00:55 Penicillins Allergy RASH Verified 05/04/18 00:55 oxycodone AdvReac NAUSEA Verified 05/04/18 00:55 Physical Exam - Constitutional Appears: Well, Non-toxic, No Acute Distress - Head Exam Head Exam: ATRAUMATIC, NORMAL INSPECTION - Eye Exam Eye Exam: EOMI, Normal appearance - ENT Exam ENT Exam: Mucous Membranes Moist - Respiratory Exam Respiratory Exam: Clear to Auscultation Bilateral, NORMAL BREATHING PATTERN. absent: Rales, Rhonchi, Wheezes, Respiratory Distress - Cardiovascular Exam Cardiovascular Exam: REGULAR RHYTHM, +S1, +S2. absent: Gallop, Rubs, Systolic Murmur - GI/Abdominal Exam GI & Abdominal Exam: Guarding, Normal Bowel Sounds, Soft, Tenderness (RUQ very tender to palpation, positive Mendoza's sign). absent: Distended, Firm - Extremities Exam Extremities exam: Positive for: normal inspection. Negative for: calf tenderness, pedal edema - Back Exam Back exam: NORMAL INSPECTION - Neurological Exam Neurological exam: Alert, CN II-XII Intact, Oriented x3 - Psychiatric Exam Psychiatric exam: Normal Affect, Normal Mood - Skin Skin Exam: Dry, Intact, Normal Color, Warm Results - Vital Signs Recent Vital Signs: Last Vital Signs Temp 98.0 F 05/04/18 01:00 Pulse 50 L 05/04/18 05:01 Resp 16 05/04/18 05:01 BP 141/56 L 05/04/18 05:01 Pulse Ox 95 05/04/18 05:01 - Labs Result Diagrams: 05/04/18 01:20 05/04/18 01:20 Labs: Laboratory Results - last 24 hr 05/04/18 05/04/18 05/04/18 01:20 01:20 01:20 WBC 10.3 D RBC 3.98 Hgb 12.0 Hct 37.0 MCV 93.0 MCH 30.2 MCHC 32.4 RDW 12.4 Plt Count 268 MPV 10.4 Gran % 61.4 Lymph % (Auto) 29.1 [place] % (Auto) 7.4 H Eos % (Auto) 1.7 Baso % (Auto) 0.4 Gran # 6.32 Lymph # (Auto) 3.0 [place] # (Auto) 0.8 H Eos # (Auto) 0.2 Baso # (Auto) 0.04 PT 12.4 INR 1.09 APTT 28.4 Sodium 139 Potassium 4.3 Chloride 105 Carbon Dioxide 26 Anion Gap 13 BUN 20 Creatinine 0.5 L Est GFR ( Amer) > 60 Est GFR (Non-Af Amer) > 60 Random Glucose 137 H Lactic Acid Calcium 10.2 Total Bilirubin 0.4 AST 130 H D ALT 49 Alkaline Phosphatase 116 Lactate Dehydrogenase 834 H Total Creatine Kinase 57 Troponin I < 0.01 Total Protein 8.8 H Albumin 4.4 Globulin 4.4 Albumin/Globulin Ratio 1.0 L Amylase 59 Lipase 142 Urine Color Urine Appearance Urine pH Ur Specific [place] Urine Protein Urine Glucose (UA) Urine Ketones Urine Blood Urine Nitrate Urine Bilirubin Urine Urobilinogen Ur Leukocyte Esterase Urine RBC Urine WBC Ur Epithelial Cells Urine Bacteria Urine Other 05/04/18 05/04/18 01:20 02:15 WBC RBC Hgb Hct MCV MCH MCHC RDW Plt Count MPV Gran % Lymph % (Auto) [place] % (Auto) Eos % (Auto) Baso % (Auto) Gran # Lymph # (Auto) [place] # (Auto) Eos # (Auto) Baso # (Auto) PT INR APTT Sodium Potassium Chloride Carbon Dioxide Anion Gap BUN Creatinine Est GFR ( Amer) Est GFR (Non-Af Amer) Random Glucose Lactic Acid 0.9 Calcium Total Bilirubin AST ALT Alkaline Phosphatase Lactate Dehydrogenase Total Creatine Kinase Troponin I Total Protein Albumin Globulin Albumin/Globulin Ratio Amylase Lipase Urine Color Yellow Urine Appearance Clear Urine pH 6.0 Ur Specific [place] >= 1.030 Urine Protein Negative Urine Glucose (UA) Negative Urine Ketones Negative Urine Blood Trace-intact H Urine Nitrate Negative Urine Bilirubin Negative Urine Urobilinogen 0.2 Ur Leukocyte Esterase Negative Urine RBC 0 - 2 Urine WBC 1 - 3 Ur Epithelial Cells 1 - 3 Urine Bacteria Occ Urine Other Mucus Assessment & Plan - Assessment and Plan (Free Text) Assessment: Patient is a 63 year old female, whose past medical history includes hypertension, bradycardia, and cholelithiasis, presenting with abdominal pain. Plan: Abdominal pain 2/2 cholecystitis - CT abdomen/pelvis: Gallbladder is distended with mildly thickened wall suspicious for chronic cholecystitis. Mild intrahepatic ductal dilatation. Plea se also correlate with US/HIDA scan. There is diffuse diverticulosis noted involving descending and sigmoid colon. There is inflammatory stranding noted adjacent to the distal descending and proximal sigmoid colon compatible with acute diverticulitis. Bladder wall thickening is noted measuring up to 5 mm, consistent with cystitis. Injection granuloma is noted in the left lower anterior subcutaneous abdominal wall. - Surgery consulted, Dr. Hobbs - GI consulted, Dr. Patino - Keep patient NPO - IVF: NS @ 100 mls/hr - Toradol 15mg IV Q6 PRN for pain - Zofran 4mg IV Q4 PRN - AST/ALT: 130/49 - Alk phos: 116 - LDH: 834 - Rocephin and Flagyl given in ED - Blood culture: pending Sinus bradycardia - HR: 50-60 - EKG: Sinus bradycardia at 58 bpm. Sinus arrhythmia. No acute changes. HTN - Hold home Amlodipine due to NPO status - Hydralazine 10mg Q6 PRN - Continue to monitor BP Prophylaxis - DVT: SCD's - GI: Protonix 40mg IV QD Case discussed with Dr. Delfina Bird, PGY-1
--- NOTE | 2018-05-04 07:16 | CP.PCM.CON ---
<David Phillips - Last Filed: 05/04/18 07:34> History of Present Illness - History of Present Illness History of Present Illness: Surgery Consult Note- Dr. Hobbs Reason for Consult: Acute Cholecystitis 63F pmhx significant for HTN, cholelithiasis presents to [facility] ED w/ sharp RUQ abdominal pain that started 1 day ago after eating chicken parmesan. Associated nausea, and non-bloody, bilious vomiting. Patient had similar pain in the past that has spontaneously resolved after bowel rest. Previous admission US was done showing cholelithiasis. 12 pt ROS conducted. negative otherwise stated above PMH: HTN, cholelithiasis PSH: x3 32 years ago; L knee surgery ALL: Morphine, oxycodone, PCN, Percocet SocialHx: former smoker light smoker; admits to social EtOH use; denies illicit drug use FH: non-contributory PMD: Dr. Daly Review of Systems - Review of Systems All systems: reviewed and no additional remarkable complaints except - Constitutional Constitutional: As Per HPI Past Patient History - Infectious Disease Hx of Infectious Diseases: None - Tetanus Immunizations Tetanus Immunization: Unknown - Past Social History Smoking Status: Former Smoker - CARDIAC Hx Cardiac Disorders: Yes Hx Hypertension: Yes - PULMONARY Hx Respiratory Disorders: No - NEUROLOGICAL Hx Neurological Disorder: No - HEENT Hx HEENT Problems: Yes (reading glasses) - RENAL Hx Chronic Kidney Disease: No - ENDOCRINE/METABOLIC Hx Endocrine Disorders: No - HEMATOLOGICAL/ONCOLOGICAL Hx Blood Disorders: No - INTEGUMENTARY Hx Dermatological Problems: No - MUSCULOSKELETAL/RHEUMATOLOGICAL Hx Musculoskeletal Disorders: Yes Hx Back Pain: Yes Hx Falls: No - GASTROINTESTINAL Hx Gastrointestinal Disorders: Yes (obese) - GENITOURINARY/GYNECOLOGICAL Hx Genitourinary Disorders: Yes Hx Urinary Tract Infection: Yes - PSYCHIATRIC Hx Psychophysiologic Disorder: No Hx Substance Use: No - SURGICAL HISTORY Hx Orthopedic Surgery: Yes (L KNEE sx torn ligament) - ANESTHESIA Hx Anesthesia: Yes Hx Anesthesia Reactions: No Hx Malignant Hyperthermia: No Meds Allergies/Adverse Reactions: Allergies Allergy/AdvReac Type Severity Reaction Status Date / Time morphine Allergy RASH Verified 05/04/18 00:55 oxycodone HCl [From Percocet] Allergy REDNESS Verified 05/04/18 00:55 Penicillins Allergy RASH Verified 05/04/18 00:55 oxycodone AdvReac NAUSEA Verified 05/04/18 00:55 - Medications Medications: Current Medications Hydralazine HCl (Apresoline) 10 mg IVP Q6 PRN PRN Reason: Systolic Blood Pressure Sodium Chloride (Sodium Chloride 0.9%) 1,000 mls @ 100 mls/hr IV .Q10H STA Stop: 05/04/18 11:00 Last Admin: 05/04/18 01:28 Dose: 100 mls/hr Ketorolac Tromethamine (Toradol) 15 mg IVP Q6 PRN PRN Reason: Pain, moderate (4-7) Ondansetron HCl (Zofran Inj) 4 mg IVP Q4H PRN PRN Reason: Nausea/Vomiting Pantoprazole Sodium (Protonix Inj) 40 mg IVP DAILY ROYA Physical Exam - Constitutional Appears: Non-toxic, No Acute Distress - Head Exam Head Exam: ATRAUMATIC - Eye Exam Eye Exam: EOMI. absent: Scleral icterus - ENT Exam ENT Exam: Mucous Membranes Moist - Respiratory Exam Respiratory Exam: NORMAL BREATHING PATTERN. absent: Accessory Muscle Use, Respiratory Distress - Cardiovascular Exam Cardiovascular Exam: REGULAR RHYTHM, +S1, +S2. absent: Bradycardia, Tachycardia - GI/Abdominal Exam GI & Abdominal Exam: Soft, Tenderness (tenderness to palpation RUQ. + [place]). absent: Distended, Guarding, Rebound, Rigid - Extremities Exam Extremities exam: Negative for: calf tenderness - Neurological Exam Neurological exam: Alert, Oriented x3 - Psychiatric Exam Psychiatric exam: Normal Affect - Skin Skin Exam: Intact, Warm Results - Vital Signs Recent Vital Signs: Last Vital Signs Temp 98.0 F 05/04/18 01:00 Pulse 50 L 05/04/18 05:01 Resp 16 05/04/18 05:01 BP 141/56 L 05/04/18 05:01 Pulse Ox 95 05/04/18 05:01 - Labs Result Diagrams: 05/04/18 01:20 05/04/18 01:20 Labs: Laboratory Results - last 24 hr 05/04/18 05/04/18 05/04/18 01:20 01:20 01:20 WBC 10.3 D RBC 3.98 Hgb 12.0 Hct 37.0 MCV 93.0 MCH 30.2 MCHC 32.4 RDW 12.4 Plt Count 268 MPV 10.4 Gran % 61.4 Lymph % (Auto) 29.1 [place] % (Auto) 7.4 H Eos % (Auto) 1.7 Baso % (Auto) 0.4 Gran # 6.32 Lymph # (Auto) 3.0 [place] # (Auto) 0.8 H Eos # (Auto) 0.2 Baso # (Auto) 0.04 PT 12.4 INR 1.09 APTT 28.4 Sodium 139 Potassium 4.3 Chloride 105 Carbon Dioxide 26 Anion Gap 13 BUN 20 Creatinine 0.5 L Est GFR ( Amer) > 60 Est GFR (Non-Af Amer) > 60 Random Glucose 137 H Lactic Acid Calcium 10.2 Total Bilirubin 0.4 AST 130 H D ALT 49 Alkaline Phosphatase 116 Lactate Dehydrogenase 834 H Total Creatine Kinase 57 Troponin I < 0.01 Total Protein 8.8 H Albumin 4.4 Globulin 4.4 Albumin/Globulin Ratio 1.0 L Amylase 59 Lipase 142 Urine Color Urine Appearance Urine pH Ur Specific [place] Urine Protein Urine Glucose (UA) Urine Ketones Urine Blood Urine Nitrate Urine Bilirubin Urine Urobilinogen Ur Leukocyte Esterase Urine RBC Urine WBC Ur Epithelial Cells Urine Bacteria Urine Other 05/04/18 05/04/18 01:20 02:15 WBC RBC Hgb Hct MCV MCH MCHC RDW Plt Count MPV Gran % Lymph % (Auto) [place] % (Auto) Eos % (Auto) Baso % (Auto) Gran # Lymph # (Auto) [place] # (Auto) Eos # (Auto) Baso # (Auto) PT INR APTT Sodium Potassium Chloride Carbon Dioxide Anion Gap BUN Creatinine Est GFR ( Amer) Est GFR (Non-Af Amer) Random Glucose Lactic Acid 0.9 Calcium Total Bilirubin AST ALT Alkaline Phosphatase Lactate Dehydrogenase Total Creatine Kinase Troponin I Total Protein Albumin Globulin Albumin/Globulin Ratio Amylase Lipase Urine Color Yellow Urine Appearance Clear Urine pH 6.0 Ur Specific [place] >= 1.030 Urine Protein Negative Urine Glucose (UA) Negative Urine Ketones Negative Urine Blood Trace-intact H Urine Nitrate Negative Urine Bilirubin Negative Urine Urobilinogen 0.2 Ur Leukocyte Esterase Negative Urine RBC 0 - 2 Urine WBC 1 - 3 Ur Epithelial Cells 1 - 3 Urine Bacteria Occ Urine Other Mucus Assessment & Plan - Assessment and Plan (Free Text) Assessment: 63F w/ recurrent symptomatic cholelithiasis, now w/ acute cholecystitis Plan: - Repeat US - Plan for OR this vist - Keep NPO - IVF - further recs Dr. Faby Phillips PGY2 <Juan Hobbs - Last Filed: 05/07/18 23:11> Results - Vital Signs Recent Vital Signs: Last Vital Signs Temp 98.2 F 05/04/18 18:36 Pulse 40 L 05/04/18 18:36 Resp 18 05/04/18 18:36 BP 131/58 L 05/04/18 18:36 Pulse Ox 97 05/04/18 18:36 - Labs Result Diagrams: 05/04/18 01:20 05/04/18 01:20 Assessment & Plan - Assessment and Plan (Free Text) Plan: Patient was seen, examined and evaluated by me. I agree with resident's assessment and plan.
--- NOTE | 2018-05-04 09:56 | CT ---
Date of service: 05/04/2018 PROCEDURE: CT Abdomen and Pelvis with contrast HISTORY: ruq pain COMPARISON: Abdomen pelvis CT with contrast 04/01/2018 TECHNIQUE: Following the intravenous administration of iodinated contrast material, a CT examination of the abdomen and pelvis performed from the domes of the diaphragms to the symphysis pubis with reformatted datasets provided in axial, sagittal and coronal planes. Oral contrast was not administered as per referring physician request. Coronal and sagittal reformats were generated. Contrast dose: Omnipaque 350, 100 cc Radiation dose: Total exam DLP = 856.16 mGy-cm. This CT exam was performed using one or more of the following dose reduction techniques: Automated exposure control, adjustment of the mA and/or kV according to patient size, and/or use of iterative reconstruction technique. FINDINGS: LOWER THORAX: Limited subsegmental atelectasis noted at the dependent bilateral lower lobes with linear atelectasis or fibrosis at the left base as well. Cardiomegaly stable. LIVER: Stable mild hepatomegaly without significant intrahepatic biliary dilatation or definite mass identified once again. GALLBLADDER AND BILE DUCTS: Unremarkable. PANCREAS: Unremarkable. No gross lesion or ductal dilatation. SPLEEN: Unremarkable. ADRENALS: Unremarkable. No mass. KIDNEYS AND URETERS: Unremarkable. No hydronephrosis. No solid mass. VASCULATURE: Nonaneurysmal abdominal aortic calcific atherosclerotic changes are identified. BOWEL: Evaluation of the gastrointestinal tract is limited due to the lack of oral contrast administration. Moderate amount of retained fecal material scattered throughout the large bowel with scattered diverticula seen throughout right and left hemicolon as well. There is a segment of mild mural thickening at the proximal to mid sigmoid with local pericolic reaction suggestive of segmental colitis, likely diverticulitis. No abscess or free intra peritoneal gas collection identified. APPENDIX: Normal appendix. PERITONEUM: Remarkable only for segmental pericolic reaction at sigmoid colon as discussed in bowel section above. LYMPH NODES: Unremarkable. No enlarged lymph nodes. BLADDER: Urinary bladder is decompressed and poorly evaluated. Urinary bladder wall appears thickened once again and cystitis is not completely excluded though this is not favored given decompression. REPRODUCTIVE: Unremarkable. BONES: No acute fracture. OTHER FINDINGS: Trace emphysema left lower quadrant anterior abdominal wall suspicious for recent injection. Clinically correlate. IMPRESSION: Findings most compatible with acute diverticulitis affecting a short segment of proximal to mid sigmoid colon. Scattered diverticulosis is seen throughout the colon but concentrated at the sigmoid segment. No abscess, ascites or free intra peritoneal gas collection identified. Stable mild hepatomegaly. Preliminary report provided by Hien, 05/04/2018 4:39 a.m..
--- NOTE | 2018-05-04 12:32 | CON ---
DATE: 05/04/2018 GASTROENTEROLOGY CONSULTATION REQUESTING PHYSICIAN: Dr. Roach. REASON FOR CONSULT: I have been asked to see this 63-year-old female with a history of cholelithiasis, recurrent abdominal pain, who comes to the hospital with a 1-day history of a right upper quadrant and epigastric pain radiating to the back associated with several episodes of nausea, vomiting. The patient was hospitalized 1 month ago for similar presentation. Hepatobiliary scan at that time revealed patent cystic duct. The patient was hospitalized last week for an acute gastroenteritis. She currently denies any fevers or chills. CT scan of the abdomen and pelvis reveal a thick-walled gallbladder wall with some pericholecystic fluid. PAST MEDICAL HISTORY: Past medical history is notable for cholelithiasis, hypertension, bradycardia. PAST SURGICAL HISTORY: Past surgical history is notable for left knee surgery, . SOCIAL HISTORY: She consumes alcohol on a social basis. She quit smoking years ago. FAMILY HISTORY: Noncontributory. REVIEW OF SYSTEMS: Fourteen-point review of systems is notable for right upper quadrant and epigastric pain, nausea, vomiting. PHYSICAL EXAMINATION: Reveals; VITAL SIGNS: Temperature of 98, blood pressure 121/58, heart rate of 50. HEENT: Reveal sclerae to be white. Conjunctivae pink. NECK: Supple. CHEST: Reveal lungs to be clear. HEART: Exam reveals regular rate and rhythm. ABDOMEN: Soft. Mild epigastric and right upper quadrant tenderness. No rebound. No guarding. EXTREMITIES: Show no edema. LABORATORY DATA: Reveal white blood cell count 10.3, hemoglobin of 12. Chemistries reveal AST 130, ALT 49, total bilirubin of 0.4, alkaline phosphatase of 116. IMPRESSION: This is a 63-year-old female with known cholelithiasis with recurrent right upper quadrant and epigastric pain associated with nausea and vomiting. CT scan of the abdomen does show thickened gallbladder wall with some pericholecystic fluid. The patient has either an acute recurrent cholecystitis versus biliary colic, given the recurrent nature of the symptoms. The patient will need cholecystectomy. RECOMMENDATIONS: Surgical evaluation for cholecystectomy. Ramy Patino MD [facility] # [id number]
--- NOTE | 2018-05-04 13:27 | US ---
Date of service: 05/04/2018 HISTORY: r/o Acute Cholecystitis COMPARISON: Abdomen and pelvis CT 05/04/2018. TECHNIQUE: Sonographic evaluation of the abdomen. FINDINGS: LIVER: Measures 18.3 cm. Normal echogenicity of the liver parenchyma. No mass. No intrahepatic bile duct dilatation. GALLBLADDER: Limited sludge and tiny calculi are suspected layering at the dependent gallbladder fundus. Mild mural thickening seen of the 3.6 mm with trace pericholecystic fluid. Clinically correlate for potential cholecystitis although no sonographic Mendoza sign is reported. These findings are better appreciated than the appearance of the gallbladder on CT 05/04/2018 3 a.m.. COMMON BILE DUCT: Measures 4.7 mm. No stones. No dilatation. PANCREAS: The tail of the pancreas is obscured by overlying bowel gas with remainder unremarkable. RIGHT KIDNEY: Measures 12.0cm. Normal echogenicity. No calculus, mass, or hydronephrosis. LEFT KIDNEY: Measures 11.0cm. Normal echogenicity. No calculus, mass, or hydronephrosis. SPLEEN: Normal in size and contour, measuring 8.2 cm. No mass. AORTA: No aneurysmal dilatation. IVC: Unremarkable. OTHER FINDINGS: None. IMPRESSION: 1. Mild mural thickening in the gallbladder is seen with trace pericholecystic fluid and limited cholelithiasis/sludge in the lumen. Clinically correlate for potential cholecystitis although no sonographic Mendoza sign is reported. Sonographic gallbladder findings are better appreciated than prior CT 05/04/2018 3 a.m.. 2. The tail of the pancreas is obscured by overlying bowel gas with remainder unremarkable. 3. Exam otherwise unremarkable.
--- NOTE | 2018-05-04 14:58 | CON ---
DATE: 05/04/2018 CARDIOLOGY CONSULTATION HISTORY OF PRESENT ILLNESS: The patient a 63-year-old woman, who presents with abdominal pain, who was found to have cholecystitis. There are plans for surgery tomorrow. The patient has no previous cardiac history. She does suffer from hypertension. According to the patient, she denies shortness of breath. Denies chest pain. She underwent a stress test in [place] 4 months ago, which was said to be normal. She has no exercise intolerance. SOCIAL HISTORY: Denies smoking. REVIEW OF SYSTEMS: Fourteen-point review of systems is reviewed in detail. No cardiac symptoms are noted on physical exam. PHYSICAL EXAMINATION: VITAL SIGNS: Blood pressure is 121/58, the heart rate is in the 50s. NECK: Negative JVD. LUNGS: Without rales. CARDIAC: Heart rate S1, S2. EXTREMITIES: Without edema. LABORATORY DATA: EKG is unremarkable. Laboratories are unremarkable other than a mildly elevated glucose. IMPRESSION: 1. Cholecystitis. 2. Hypertension. 3. Recent stress test which was normal. 4. Recent abdominal pain. 5. Early diabetes mellitus. PLAN: Given these findings, there are no cardiac contraindications to planned surgery. Alexys Moore MD
[2018-05-04 16:00] VITALS: RESP 18
--- NOTE | 2018-05-04 16:16 | CARD ---
APPROVED REPORT Date of service: 05/04/2018 EKG Measurement Heart [id number] <Conclusion> Sinus bradycardia with sinus arrhythmia
--- NOTE | 2018-05-04 18:24 | CP.PCM.DIS ---
Provider - Provider Date of Admission: 05/04/18 08:36 Attending physician: Nickie Roach DO Primary care physician: Ying Daly DO Consults: 05/04/18 05:44 Gastroenterology Consult Routine Comment: Consulting Provider: Ramy Patino Consulting Physician: Ramy Patino Reason for Consult: Cholecystitis 05/04/18 05:45 General Surgery Consult Routine Comment: Consulting Provider: Juan Hobbs Consulting Physician: Juan Hobbs Reason for Consult: Cholecystitis 05/04/18 07:23 Physician Consult Routine Comment: Consulting Provider: Alexys Moore Consulting Physician: Alexys Moore Reason for Consult: bradycardia, surgical risk stratification Time Spent in preparation of Discharge (in minutes): 35 Diagnosis - Discharge Diagnosis (1) Gallstones Status: Chronic Priority: High (2) Intractable abdominal pain Status: Chronic Priority: High (3) Biliary colic Status: Chronic Priority: High Hospital Course - Lab Results Lab Results: Most Recent Lab Values WBC 10.3 10^3/uL (4.5-11.0) D 05/04/18 01:20 RBC 3.98 10^6/uL (3.5-6.1) 05/04/18 01:20 Hgb 12.0 g/dL (12.0-16.0) 05/04/18 01:20 Hct 37.0 % (36.0-48.0) 05/04/18 01:20 MCV 93.0 fl (80.0-105.0) 05/04/18 01:20 MCH 30.2 pg (25.0-35.0) 05/04/18 01:20 MCHC 32.4 g/dl (31.0-37.0) 05/04/18 01:20 RDW 12.4 % (11.5-14.5) 05/04/18 01:20 Plt Count 268 10^3/uL (120.0-450.0) 05/04/18 01:20 MPV 10.4 fl (7.0-11.0) 05/04/18 01:20 Gran % 61.4 % (50.0-68.0) 05/04/18 01:20 Lymph % (Auto) 29.1 % (22.0-35.0) 05/04/18 01:20 Greenlee % (Auto) 7.4 % (1.0-6.0) H 05/04/18 01:20 Eos % (Auto) 1.7 % (1.5-5.0) 05/04/18 01:20 Baso % (Auto) 0.4 % (0.0-3.0) 05/04/18 01:20 Gran # 6.32 (1.4-6.5) 05/04/18 01:20 Lymph # (Auto) 3.0 (1.2-3.4) 05/04/18 01:20 Greenlee # (Auto) 0.8 (0.1-0.6) H 05/04/18 01:20 Eos # (Auto) 0.2 (0.0-0.7) 05/04/18 01:20 Baso # (Auto) 0.04 K/mm3 (0.0-2.0) 05/04/18 01:20 PT 12.4 SECONDS (9.4-12.5) 05/04/18 01:20 INR 1.09 05/04/18 01:20 APTT 28.4 Seconds (25.1-36.5) 05/04/18 01:20 Sodium 139 mmol/L (132-148) 05/04/18 01:20 Potassium 4.3 mmol/L (3.6-5.0) 05/04/18 01:20 Chloride 105 mmol/L (98-107) 05/04/18 01:20 Carbon Dioxide 26 mmol/L (21-33) 05/04/18 01:20 Anion Gap 13 (10-20) 05/04/18 01:20 BUN 20 mg/dL (7-21) 05/04/18 01:20 Creatinine 0.5 mg/dl (0.7-1.2) L 05/04/18 01:20 Est GFR ( Amer) > 60 05/04/18 01:20 Est GFR (Non-Af Amer) > 60 05/04/18 01:20 Random Glucose 137 mg/dL (70-110) H 05/04/18 01:20 Lactic Acid 0.9 mmol/L (0.7-2.1) 05/04/18 01:20 Calcium 10.2 mg/dL (8.4-10.5) 05/04/18 01:20 Total Bilirubin 0.4 mg/dL (0.2-1.3) 05/04/18 01:20 AST 130 U/L (14-36) H D 05/04/18 01:20 ALT 49 U/L (7-56) 05/04/18 01:20 Alkaline Phosphatase 116 U/L (38-126) 05/04/18 01:20 Lactate Dehydrogenase 834 U/L (333-699) H 05/04/18 01:20 Total Creatine Kinase 57 U/L (35-230) 05/04/18 01:20 Troponin I < 0.01 ng/mL 05/04/18 01:20 Total Protein 8.8 g/dL (5.8-8.3) H 05/04/18 01:20 Albumin 4.4 g/dL (3.0-4.8) 05/04/18 01:20 Globulin 4.4 gm/dL 05/04/18 01:20 Albumin/Globulin Ratio 1.0 (1.1-1.8) L 05/04/18 01:20 Amylase 59 U/L (35-125) 05/04/18 01:20 Lipase 142 U/L (23-300) 05/04/18 01:20 Urine Color Yellow (YELLOW) 05/04/18 02:15 Urine Appearance Clear (CLEAR) 05/04/18 02:15 Urine pH 6.0 (4.7-8.0) 05/04/18 02:15 Ur Specific [place] >= 1.030 (1.005-1.035) 05/04/18 02:15 Urine Protein Negative mg/dL (<30 mg/dL) 05/04/18 02:15 Urine Glucose (UA) Negative mg/dL (NEGATIVE) 05/04/18 02:15 Urine Ketones Negative mg/dL (NEGATIVE) 05/04/18 02:15 Urine Blood Trace-intact (NEGATIVE) H 05/04/18 02:15 Urine Nitrate Negative (NEGATIVE) 05/04/18 02:15 Urine Bilirubin Negative (NEGATIVE) 05/04/18 02:15 Urine Urobilinogen 0.2 E.U./dL (<1 E.U./dL) 05/04/18 02:15 Ur Leukocyte Esterase Negative Eliza/uL (NEGATIVE) 05/04/18 02:15 Urine RBC 0 - 2 /hpf (0-2) 05/04/18 02:15 Urine WBC 1 - 3 /hpf (0-6) 05/04/18 02:15 Ur Epithelial Cells 1 - 3 /hpf (0-5) 05/04/18 02:15 Urine Bacteria Occ /hpf (NONE) 05/04/18 02:15 Urine Other Mucus /hpf 05/04/18 02:15 - Hospital Course Hospital Course: Upon Admission Pt is a 63 yo female, whose PMH includes HTN, bradycardia, and cholelithiasis, presenting with abdominal pain. Patient states she began experiencing RUQ abdominal pain after eating chicken parmesan yesterday evening. She describes her pain to be sharp, located mostly in the RUQ of the abdomen, radiating to the right back, and 10/10 in severity. Pt also admits to associated nausea and 5 e pisodes of non-bloody vomiting. Patient notes she has experienced similar symptoms last month and was admitted to the hospital for cholelithiasis. Patient states that she was medically managed without any surgical interventions. Hospitalization CT AP shows a distended gallbladder with mild thickening. Mild ductal dilation. GI was consulted. Pt was treated with rocephin and flagyl. Discharge Pt left AMA. - Date & Time of H&P Date of H&P: 05/04/18 Time of H&P: 07:00 Discharge Exam - Head Exam Head Exam: ATRAUMATIC - Eye Exam Eye Exam: EOMI - ENT Exam ENT Exam: Mucous Membranes Moist - Neck Exam Neck exam: Full Rom - Respiratory Exam Respiratory Exam: NORMAL BREATHING PATTERN, UNREMARKABLE. absent: Accessory Muscle Use, Respiratory Distress - Cardiovascular Exam Cardiovascular Exam: RRR, +S1, +S2. absent: Diastolic murmur, Systolic Murmur - GI/Abdominal Exam GI & Abdominal Exam: Normal Bowel Sounds, Tenderness, Unremarkable - Extremities Exam Extremities exam: full ROM - Neurological Exam Neurological exam: Alert, Oriented x3 - Psychiatric Exam Psychiatric exam: Normal Affect, Normal Mood - Skin Skin Exam: Dry, Intact, Warm Discharge Plan - Follow Up Plan Condition: GOOD Disposition: AGAINST MEDICAL ADVICE Instructions: Abdominal Pain (ED) Referrals: Ying Daly DO [Primary Care Provider] -
[2018-05-04 18:38] VITALS: BP 131/58; PULSE 40; TEMP 98.2; O2SAT 97
== END 2018-05-04 18:38 | disposition left against medical advice (07) ==
LOC: ED 00:40 → ERH 04:53 → UNDOADMOB 04:53 → OBSVTOIN 08:36 → INTOOBSV 08:36
DX: K80.70 Calculus of gallbladder and bile duct without cholecystitis without obstruction (principal); R10.9 Unspecified abdominal pain; I10 Essential (primary) hypertension; Z87.891 Personal history of nicotine dependence
CPT/HCPCS: 74177; 76700; 80053; 81001; 82150; 82550; 83605; 83615; 83690; 84484; 85025; 85610; 85730; 87040; 93005; 96365; 96367; 96375; 99285; C9113; J0696; J1885; J2405; J7030; Q9967